=== PATIENT | female | born 1945 | race Caucasian/White ===

== ENCOUNTER 2020-03-10 09:59 | Outpatient (REF) | payer MEDICARE, SELFPAY ==
[2020-03-10 11:48] LABS: Alanine Aminotransferase 15 U/L (0-31); Anion Gap 11 (12-20); Aspartate Amino Transferase 16 U/L (5-31); Blood Urea Nitrogen 15 mg/dL (9-16); Calcium 9.5 mg/dL (8.4-10.2); Carbon Dioxide 32 mmol/L (22-29); Chloride 100 mmol/L (96-108); Cholesterol 170 mg/dL; Estimated Glomerular Filt Rate > 60; Glucose Fasting 124 mg/dL (60-99); HDL Cholesterol 41 mg/dL; LDL Cholesterol Calculated 100 mg/dl; Sodium 139 mmol/L (135-145); Triglycerides 149 mg/dL
[2020-03-10 11:52] LABS: Estimated Average Glucose 146 mg/dL; Hemoglobin A1c % 6.7 %
[2020-03-10 12:11] LABS: Vitamin D 25-OH Total 36.4 ng/mL (>30)
== END 2020-03-10 10:00 | disposition home or self-care (01) ==
LOC: HO.HMGCLDS 09:59
PROVIDERS: PCP Internal Medicine; Visit Provider Internal Medicine
DX: E78.5 Hyperlipidemia, unspecified (principal); I10 Essential (primary) hypertension; R73.01 Impaired fasting glucose; Z78.0 Asymptomatic menopausal state
CPT/HCPCS: 80048; 80061; 82306; 83036; 84450; 84460

== ENCOUNTER 2020-08-17 11:12 | Outpatient (REF) | payer MEDICARE, SELFPAY ==
[2020-08-17 14:41] LABS: Alanine Aminotransferase 9 U/L (0-31); Anion Gap 14 (12-20); Aspartate Amino Transferase 16 U/L (5-31); Blood Urea Nitrogen 16 mg/dL (9-16); Calcium 9.6 mg/dL (8.4-10.2); Carbon Dioxide 29 mmol/L (22-29); Chloride 102 mmol/L (96-108); Cholesterol 156 mg/dL; Estimated Glomerular Filt Rate > 60; Glucose Fasting 121 mg/dL (60-99); HDL Cholesterol 42 mg/dL; LDL Cholesterol Calculated 86 mg/dl; Potassium 4.5 mmol/L (3.3-5.1); Sodium 140 mmol/L (135-145); Triglycerides 141 mg/dL
[2020-08-17 14:43] LABS: Estimated Average Glucose 140 mg/dL; Hemoglobin A1c % 6.5 %
[2020-08-17 14:55] LABS: Creatinine Urine 47.24 mg/dL; Microalbum/Creatinine Ratio Ur 21.1 ug/mg cr
== END 2020-08-17 11:13 | disposition home or self-care (01) ==
LOC: HO.HMGCLDS 11:12
PROVIDERS: PCP Internal Medicine; Visit Provider Internal Medicine
DX: E11.9 Type 2 diabetes mellitus without complications (principal); E78.5 Hyperlipidemia, unspecified; I10 Essential (primary) hypertension; Z78.0 Asymptomatic menopausal state
CPT/HCPCS: 36415; 80048; 80061; 82043; 83036; 84450; 84460

== ENCOUNTER 2020-11-17 09:46 | Outpatient (REF) | payer MEDICARE, SELFPAY ==
--- NOTE | ~2020-11-17 | MM_ITS ---
EXAMINATION: MM SCREENING DIGITAL BREAST TOMOSYNTHESIS, BILATERAL CLINICAL INFORMATION: Screening. Asymptomatic. The lifetime risk of breast cancer based on the Tyrer-Cuzick Model is 7%. COMPARISON: Mammography: 11/10/2019, 11/04/2018, 10/10/2017 TECHNIQUE: Digital breast tomosynthesis is performed in both the craniocaudal and mediolateral oblique views along with computer-aided detection (CAD). Synthesized 2D images are generated from the tomosynthesis. Additional bilateral exaggerated CC views are provided. FINDINGS: There are scattered areas of fibroglandular density (ACR BI-RADS breast composition Category b). There are no significant masses, abnormal calcifications, or other abnormalities. Parenchymal pattern is similar to prior exams. No developing density. The axilla and skin contours are unremarkable. MM/MM tomosynthesis screening BI IMPRESSION: No mammographic evidence of malignancy. ASSESSMENT: BI-RADS 1: Negative RECOMMENDATION: Routine annual mammography screening. This patient's information was entered into a reminder system with a target due date for their next mammogram.
== END 2020-11-17 09:47 | disposition home or self-care (01) ==
LOC: HO.MAMMO 09:46
PROVIDERS: Visit Provider Internal Medicine
DX: Z12.31 Encounter for screening mammogram for malignant neoplasm of breast (principal)
CPT/HCPCS: 77063; 77067

== ENCOUNTER 2021-02-22 09:04 | Outpatient (REF) | payer MEDICARE, SELFPAY ==
[2021-02-22 12:23] LABS: Alanine Aminotransferase 17 U/L (0-31); Anion Gap 13 (12-20); Aspartate Amino Transferase 18 U/L (5-31); Blood Urea Nitrogen 15 mg/dL (9-16); Calcium 9.6 mg/dL (8.4-10.2); Carbon Dioxide 30 mmol/L (22-29); Chloride 99 mmol/L (96-108); Cholesterol 159 mg/dL; Estimated Glomerular Filt Rate > 60; Glucose Fasting 131 mg/dL (60-99); HDL Cholesterol 41 mg/dL; LDL Cholesterol Calculated 86 mg/dl; Potassium 4.1 mmol/L (3.3-5.1); Sodium 138 mmol/L (135-145); Triglycerides 160 mg/dL
[2021-02-22 12:43] LABS: Vitamin D 25-OH Total 42.2 ng/mL (>30)
[2021-02-22 12:57] LABS: Estimated Average Glucose 151 mg/dL; Hemoglobin A1c % 6.9 %
== END 2021-02-22 09:05 | disposition home or self-care (01) ==
LOC: HO.HMGCLDS 09:04
PROVIDERS: PCP Internal Medicine; Visit Provider Internal Medicine
DX: E11.9 Type 2 diabetes mellitus without complications (principal); E78.5 Hyperlipidemia, unspecified; I10 Essential (primary) hypertension; Z78.0 Asymptomatic menopausal state
CPT/HCPCS: 36415; 80048; 80061; 82306; 83036; 84450; 84460

== ENCOUNTER 2021-07-26 08:34 | Outpatient (REF) | payer MEDICARE, SELFPAY ==
[2021-07-26 11:43] LABS: Estimated Average Glucose 151 mg/dL; Hemoglobin A1c % 6.9 %
[2021-07-26 12:02] LABS: Alanine Aminotransferase 15 U/L (0-31); Albumin Level 4.2 g/dL (3.5-5.0); Alkaline Phosphatase 75 U/L (39-117); Anion Gap 12 (12-20); Aspartate Amino Transferase 18 U/L (5-31); Blood Urea Nitrogen 17 mg/dL (9-16); Calcium 9.8 mg/dL (8.4-10.2); Carbon Dioxide 30 mmol/L (22-29); Chloride 99 mmol/L (96-108); Cholesterol 153 mg/dL; Estimated Glomerular Filt Rate > 60; Glucose Fasting 151 mg/dL (60-99); HDL Cholesterol 37 mg/dL; LDL Cholesterol Calculated 88 mg/dl; Potassium 4.2 mmol/L (3.3-5.1); Sodium 137 mmol/L (135-145); Total Protein 7.3 g/dL (6.5-8.0); Triglycerides 140 mg/dL; Vitamin D 25-OH Total 36.8 ng/mL (>30)
[2021-07-26 12:25] LABS: Creatinine Urine 83.15 mg/dL
== END 2021-07-26 08:35 | disposition home or self-care (01) ==
LOC: HO.HMGCLDS 08:34
PROVIDERS: PCP Internal Medicine; Visit Provider Internal Medicine
DX: E11.9 Type 2 diabetes mellitus without complications (principal); E78.5 Hyperlipidemia, unspecified; I10 Essential (primary) hypertension; Z78.0 Asymptomatic menopausal state
CPT/HCPCS: 36415; 80053; 80061; 82043; 82306; 83036

== ENCOUNTER 2021-11-21 09:07 | Outpatient (REF) | payer MEDICARE, SELFPAY ==
--- NOTE | ~2021-11-21 | MM_ITS ---
EXAMINATION: MM SCREENING DIGITAL BREAST TOMOSYNTHESIS, BILATERAL CLINICAL INFORMATION: Screening. Asymptomatic. The lifetime risk of breast cancer based on the Tyrer-Cuzick Model is 7%. COMPARISON: Mammography: 11/17/2020, 11/10/2019, 11/04/2018 TECHNIQUE: Digital breast tomosynthesis is performed in both the craniocaudal and mediolateral oblique views along with computer-aided detection (CAD). Synthesized 2D images are generated from the tomosynthesis. Additional bilateral CC and additional bilateral MLO views are provided. FINDINGS: There are scattered areas of fibroglandular density (ACR BI-RADS breast composition Category b). There are no significant masses, abnormal calcifications, or other abnormalities. Parenchymal pattern is similar to prior studies. There is no developing density or architectural abnormality. The axilla are unremarkable. No significant changes. MM/MM tomosynthesis screening BI IMPRESSION: No mammographic evidence of malignancy. ASSESSMENT: BI-RADS 1: Negative RECOMMENDATION: Routine annual mammography screening. This patient's information was entered into a reminder system with a target due date for their next mammogram.
== END 2021-11-21 09:08 | disposition home or self-care (01) ==
LOC: HO.MAMMO 09:07
PROVIDERS: PCP Internal Medicine; Visit Provider Internal Medicine
DX: Z12.31 Encounter for screening mammogram for malignant neoplasm of breast (principal)
CPT/HCPCS: 77063; 77067

== ENCOUNTER 2022-01-20 08:53 | Outpatient (REF) | payer MEDICARE, SELFPAY ==
[2022-01-20 11:36] LABS: Estimated Average Glucose 157 mg/dL; Hemoglobin A1c % 7.1 %
[2022-01-20 11:54] LABS: Alanine Aminotransferase 10 U/L (0-31); Anion Gap 14 (12-20); Aspartate Amino Transferase 17 U/L (5-31); Blood Urea Nitrogen 18 mg/dL (9-16); Calcium 9.4 mg/dL (8.4-10.2); Carbon Dioxide 27 mmol/L (22-29); Chloride 102 mmol/L (96-108); Cholesterol 163 mg/dL; Estimated Glomerular Filt Rate > 60; Glucose Fasting 157 mg/dL (60-99); HDL Cholesterol 37 mg/dL; LDL Cholesterol Calculated 95 mg/dl; Sodium 139 mmol/L (135-145); Triglycerides 155 mg/dL
[2022-01-20 12:14] LABS: Creatinine Urine 81.28 mg/dL; Microalbum/Creatinine Ratio Ur 12.3 ug/mg cr
== END 2022-01-20 08:54 | disposition home or self-care (01) ==
LOC: HO.HMGCLDS 08:53
PROVIDERS: PCP Internal Medicine; Visit Provider Internal Medicine
DX: E11.9 Type 2 diabetes mellitus without complications (principal); E78.5 Hyperlipidemia, unspecified; I10 Essential (primary) hypertension; N95.9 Unspecified menopausal and perimenopausal disorder; Z78.0 Asymptomatic menopausal state
CPT/HCPCS: 36415; 80048; 80061; 82043; 82306; 83036; 84450; 84460

== ENCOUNTER 2022-06-21 09:17 | Outpatient (REF) | payer MEDICARE, SELFPAY ==
[2022-06-21 12:04] LABS: Alanine Aminotransferase 17 U/L (0-31); Anion Gap 13 (12-20); Aspartate Amino Transferase 20 U/L (5-31); Blood Urea Nitrogen 12 mg/dL (9-16); Calcium 9.6 mg/dL (8.4-10.2); Carbon Dioxide 30 mmol/L (22-29); Chloride 97 mmol/L (96-108); Cholesterol 173 mg/dL; Estimated Glomerular Filt Rate > 60; Glucose Fasting 133 mg/dL (60-99); HDL Cholesterol 41 mg/dL; LDL Cholesterol Calculated 103 mg/dl; Sodium 136 mmol/L (135-145); Triglycerides 145 mg/dL; Vitamin D 25-OH Total 33.2 ng/mL (>30)
[2022-06-21 12:06] LABS: Estimated Average Glucose 174 mg/dL; Hemoglobin A1c % 7.7 %
[2022-06-21 12:17] LABS: Creatinine Urine 79.07 mg/dL; Microalbum/Creatinine Ratio Ur 26.5 ug/mg cr
== END 2022-06-21 09:18 | disposition home or self-care (01) ==
LOC: HO.HMGCLDS 09:17
PROVIDERS: PCP Internal Medicine; Visit Provider Internal Medicine
DX: E11.65 Type 2 diabetes mellitus with hyperglycemia (principal); E78.5 Hyperlipidemia, unspecified; I10 Essential (primary) hypertension; Z78.0 Asymptomatic menopausal state
CPT/HCPCS: 36415; 80048; 80061; 82043; 82306; 83036; 84450; 84460

== ENCOUNTER 2022-11-28 09:44 | Outpatient (REF) | payer MEDICARE, SELFPAY ==
--- NOTE | ~2022-11-28 | MM_ITS ---
EXAMINATION: MM SCREENING DIGITAL BREAST TOMOSYNTHESIS, BILATERAL CLINICAL INFORMATION: Screening. Asymptomatic. COMPARISON: Mammography: This study is compared with prior exams dating back to 2017. TECHNIQUE: Digital breast tomosynthesis is performed in both the craniocaudal and mediolateral oblique views along with computer-aided detection (CAD). Synthesized 2D images are generated from the tomosynthesis. FINDINGS: There are scattered areas of fibroglandular density (ACR BI-RADS breast composition Category b). There are 3 focal asymmetries which lie within 1.5 cm of each other in the upper inner quadrant of the left breast. Additional mammographic imaging of this region is advised. In the right breast, there are no significant masses, abnormal calcifications, or other abnormalities. MM/MM tomosynthesis screening BI IMPRESSION: Focal asymmetries of the left breast warrant additional mammographic imaging. Targeted sonographic imaging may be performed at the discretion of the diagnostic radiologist. No mammographic signs of malignancy right breast. ASSESSMENT: BI-RADS BI-RADS 0 - Incomplete: Needs additional Imaging. RECOMMENDATION: 1. Additional views of the left breast 2. Targeted ultrasound if warranted after review of the additional views. 3. Radiology department staff will contact the patient for additional imaging. Additional Imaging required This examination should not preclude the clinical evaluation of a suspicious palpable abnormality. This patient's information was entered into a reminder system with a target due date for their next mammogram.
== END 2022-11-28 09:45 | disposition home or self-care (01) ==
LOC: HO.MAMMO 09:44
PROVIDERS: PCP Internal Medicine; Visit Provider Internal Medicine
DX: Z12.31 Encounter for screening mammogram for malignant neoplasm of breast (principal)
CPT/HCPCS: 77063; 77067

== ENCOUNTER → 2022-11-28 10:00 | Outpatient (BNV) | payer MEDICARE, SELFPAY | PROVIDERS: PCP Internal Medicine; Visit Provider Radiology Diagnostic Radiology | DX: Z12.31 Encounter for screening mammogram for malignant neoplasm of breast (principal) | CPT/HCPCS: 77063; 77067 ==

== ENCOUNTER 2022-12-12 13:42 | Outpatient (REF) | payer MEDICARE, SELFPAY ==
--- NOTE | ~2022-12-12 | MM_ITS ---
EXAMINATION: MM DIAGNOSTIC DIGITAL BREAST TOMOSYNTHESIS, LEFT US BREAST LIMITED, LEFT MAMMOGRAPHY: CLINICAL INFORMATION: Follow-up 3 focal asymmetries left breast upper quadrant approximately 12:00 axis seen on screening exam. COMPARISON: Mammography: 11/28/2022, 11/21/2021, and 11/17/2020, and dating back to 2014. TECHNIQUE: Digital left breast tomosynthesis is performed including a full field 3-D digital left ML view, and 3-D spot compression left MLO and CC views along with computer-aided detection (CAD). Synthesized 2D images are generated from the tomosynthesis. FINDINGS: There are scattered areas of fibroglandular density (ACR BI-RADS breast composition Category b). There are 3 slightly irregular nodules in the 12:00 axis of the left breast, posterior one third, which persist upon diagnostic views. These are grouped within approximately 1.5 cm of each other. These will be evaluated by ultrasound. ULTRASOUND: CLINICAL INFORMATION: Evaluate focal asymmetries left breast 12:00 axis. COMPARISON: None relevant. TECHNIQUE: Targeted sonographic evaluation left breast 12:00 axis was performed using a high frequency linear transducer. Selected archived documentation. FINDINGS: LEFT BREAST: At the 12:00 axis, 13 cm from the nipple, there is a slightly irregular hypoechoic mass which has a pear-shape, with no posterior features, and slightly hyperechoic surrounding rim of fat. This measures 5 x 8 x 4 mm. No internal color Doppler flow is seen. This may represent a focus of fat necrosis but remain suspicious. Ultrasound-guided biopsy recommended. Immediately adjacent in the left breast at the 12:00 axis, 13 cm from the nipple, there is a 3 mm oval nodule with similar imaging characteristics, and a directly abutting 2 mm nodule, neither demonstrating posterior features, internal blood flow, and both demonstrating a slightly hyperechoic rim of fat. These may represent foci of fat necrosis as well, although biopsy is recommended to confirm. Findings and recommendations were discussed with the patient in detail. MM/MM tomosynthesis added views L IMPRESSION: 3 suspicious loosely grouped nodules in the 12:00 axis of the left breast, 13 cm from the nipple, posterior one third, measuring up to 8 mm, for which ultrasound-guided biopsy is recommended for the 2 largest. These may represent fat necrosis although biopsy is recommended to confirm. OVERALL ASSESSMENT: Mammography: BI-RADS 4 - Suspicious finding Ultrasound: BI-RADS 4 - Suspicious finding RECOMMENDATION: Biopsy recommended
== END 2022-12-12 13:43 | disposition home or self-care (01) ==
LOC: HO.MAMMO 13:42
PROVIDERS: PCP Internal Medicine; Visit Provider Internal Medicine
DX: N64.89 Other specified disorders of breast (principal)
CPT/HCPCS: 76642; 77061; 77065

== ENCOUNTER → 2022-12-12 14:00 | Outpatient (BNV) | payer MEDICARE, SELFPAY | PROVIDERS: PCP Internal Medicine; Visit Provider Radiology Diagnostic Radiology | DX: N63.23 Unspecified lump in the left breast, lower outer quadrant (principal) | CPT/HCPCS: 76642; 77061; 77065; G0279 ==

== ENCOUNTER 2022-12-20 08:08 | Outpatient (AMB) | payer MEDICARE, SELFPAY ==
[2022-12-20 08:11] VITALS: BMI 38.3
--- NOTE | 2022-12-20 08:11 | A.OFFVIS_ITS ---
Intake Vital Signs 12/20/22 08:11 Height 5 ft 4 in Weight 223 lb BMI 38.3 Intake Visit Reasons: US guided left breast biopsy *2 areas* Intake Note: This patient presents for Ultrasound guided biopsy consultation for left breast *2 areas*. Patient c/o; reports no breast complaints at this time. 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 She had recently under gone a screening mammogram showing left breast nodule. She underwent targeted mammogram and ultrasound showing a slightly irregular hypoechoic mass measuring 5 x 8 x 4 mm at the 12:00 o'clock position on the left breast. Adjacent to the left breast is a 3 mm oval nodule with similar imaging characteristics. Ultrasound-guided biopsy of both areas were recommended by the radiologist She otherwise denies any palpable breast masses or any nipple or skin changes. Her menarche was at the age of 12. Her 1st was at age of 24 . She had 2 pregnancies. She had menopause in her 50's. She says her mother had breast cancer in her 80s [facility] Medical History Breast nodule Diabetes mellitus with hyperglycemia, without long-term current use of insulin Dyslipidemia Essential hypertension Menopause Type 2 diabetes mellitus without complication, without long-term current use of insulin Surgical History History of colonoscopy History of tonsillectomy Family History Mother Cancer Brother No problems noted. Son No problems noted. Daughter No problems noted. Other Mental health disorder Social History Housing: Condominium Alcohol intake: never Patient Tobacco Use Status: Never used Tobacco e-Cigarette/Vaping Use: Never Used Second Hand Smoke Exposure: No (as a child ) Current occupational status: retired Cognitive needs: No Hearing needs: No Vision needs: Yes Female Reproductive History Menstrual Age of Menarche: 12 Total pregnancies: 2 Review of Systems Const Denies chills and Denies fever(s) Card Denies chest pain, Denies dyspnea and Denies dyspnea on exertion Resp Denies cough, Denies dyspnea and Denies dyspnea on exertion GI Denies hematochezia and Denies change in bowel habits Denies hematuria Musc Denies back pain and Denies limited range of motion Neuro Denies focal weakness and Denies convulsions Psych Denies depression and Denies mood swings Physical Exam Const General: comfortable and no acute distress Orientation/consciousness: patient oriented x3 Neck Neck: Yes no lymphadenopathy Chest Other: No palpable breast masses, no nipple or skin changes, no axillary lymphadenopathy; she has large, pendulous breasts Resp Auscultation: clear to auscultation bilaterally Cardio Rhythm: regular rhythm GI Palpation (GI): Soft to palpation, nontender and no guarding Neuro General: patient oriented x3 Assessment & Plan Assessment & Plan (1) Breast nodule: Code(s): N63.0 - Unspecified lump in unspecified breast Plan: She has 2 breast nodules adjacent to each other as described above. The radiologist had recommended ultrasound-guided biopsy. She understands the technique of this procedure. I will see her in the office to discuss the path report and plan the next step in her care. She says she understands the plan and is comfortable with this. Orders: Orders US breast ndl core biopsy LT 12/19/22 N63.0 - Unspecified lump in unspecified breast Coding Level of Care Code New Pt Level 3 (64617) Diagnoses Breast nodule N63.0
== END 2022-12-20 08:39 | disposition home or self-care (01) ==
PROVIDERS: PCP Internal Medicine; Visit Provider Surgery
DX: N63.0 Unspecified lump in unspecified breast (principal)
CPT/HCPCS: 99203

== ENCOUNTER 2022-12-20 08:45 | Outpatient (REF) | payer MEDICARE, SELFPAY ==
--- NOTE | ~2022-12-20 | MM_ITS ---
PROCEDURE: US GUIDED BREAST BIOPSY, LEFT CLINICAL INFORMATION: Left breast masses at the 12:00 axis x2, dual site biopsy. COMPARISON: 12/12/2022, 11/28/2022. PROCEDURAL DETAILS: The details of the procedure, as well as the risks, benefits, and alternatives to the procedure were explained to the patient in detail and all of her questions were answered, after which written informed consent was obtained. Site and side were confirmed. Prior to the procedure, sonography revealed a 5 x 8 x 4 mm slightly irregular hypoechoic nodule left breast 12:00 axis, 13 cm from the nipple. This will be referred to as site A. In addition, a 3 mm immediately adjacent hypoechoic mass in the left breast at the 12:00 axis, 13 cm from the nipple was localized for biopsy. This will be referred to as site B. A time-out was performed, the lesions intended for biopsy were targeted, the overlying skin marked, and prepped and draped in sterile fashion. Using sonographic guidance, sterile technique, and 1% lidocaine without epinephrine for local anesthesia, multiple automated core biopsies were obtained through the targeted area of the larger mass at site A with a 14G spring loaded Achieve core biopsy device. There was real-time confirmation of appropriate needle passage. Sampling was documented. At the completion of tissue sampling, a single butterfly-shaped metallic clip was deposited at the biopsy site. Subsequently, using sonographic guidance, sterile technique, and 1% lidocaine without epinephrine for local anesthesia, multiple automated core biopsies were obtained through the targeted area of the smaller 3 mm mass at site B with a 14G spring loaded Achieve core biopsy device. There was real-time confirmation of appropriate needle passage. Sampling was documented. At the completion of tissue sampling, a single open coil-shaped metallic clip was deposited at the biopsy site. There was no evidence of immediate complication. SPECIMEN: Appropriate samples were obtained from both sites. DIGITAL POST-PROCEDURE MAMMOGRAPHY: Breast density: The tissue contains scattered areas of fibroglandular density. BI-RADS version 5, category B. The postprocedure 2-view direct digital mammogram reveals satisfactory and accurate positioning of the both biopsy clips. No evidence of hematoma. The patient tolerated the procedure well and, after assuring adequate hemostasis, was discharged in good condition after reviewing postbiopsy breast care instructions. Final pathology results are pending. MM/MM diagnostic mammo unilat LT IMPRESSION: 1. No immediate complication from ultrasound-guided percutaneous biopsy 2 sites superior left breast. 2. Ultrasound was used to localize and guide marker clip placement x 2. 3. The 2-view direct digital postprocedure mammogram reveals accurate positioning of both biopsy clips. 4. Final pathology results are pending. A separate report with final recommendations will be issued once these results are made available.
[2022-12-20] MEDS: Sodium Bicarbonate 8.4% 50 MEQ/50 ML VIAL SUBCUT (11:07)
[2022-12-20] MEDS: Lidocaine HCl 1 % 20 ML VIAL 9 ML SUBCUT (11:08)
== END 2022-12-20 08:46 | disposition home or self-care (01) ==
LOC: HO.MAMMO 08:45
PROVIDERS: PCP Internal Medicine; Visit Provider Surgery
DX: N63.25 Unspecified lump in the left breast, overlapping quadrants (principal)
CPT/HCPCS: 19083; 77062; 77065; 88305; 88341; 88342; 88360; A4648

== ENCOUNTER → 2022-12-20 10:00 | Outpatient (BNV) | payer MEDICARE, SELFPAY | PROVIDERS: PCP Internal Medicine; Visit Provider Radiology Diagnostic Radiology | DX: N63.22 Unspecified lump in the left breast, upper inner quadrant (principal) | CPT/HCPCS: 19083; 19084; 77065 ==

== ENCOUNTER 2022-12-25 10:55 | Outpatient (REF) | payer MEDICARE, SELFPAY ==
[2022-12-25 13:44] LABS: Alanine Aminotransferase 15 U/L (0-31); Anion Gap 11 (12-20); Aspartate Amino Transferase 20 U/L (5-31); Blood Urea Nitrogen 13 mg/dL (9-16); Calcium 9.8 mg/dL (8.4-10.2); Carbon Dioxide 31 mmol/L (22-29); Chloride 99 mmol/L (96-108); Cholesterol 154 mg/dL (<200); Estimated Glomerular Filt Rate > 60; Glucose Fasting 141 mg/dL (60-99); HDL Cholesterol 43 mg/dL (>40); LDL Cholesterol Calculated 83 mg/dL (<100); Potassium 4.2 mmol/L (3.3-5.1); Sodium 137 mmol/L (135-145); Triglycerides 144 mg/dL (<150)
[2022-12-25 13:46] LABS: Estimated Average Glucose 146 mg/dL; Hemoglobin A1c % 6.7 % (<6.0)
== END 2022-12-25 10:56 | disposition home or self-care (01) ==
LOC: HO.HMGCLDS 10:55
PROVIDERS: PCP Internal Medicine; Visit Provider Internal Medicine
DX: E11.65 Type 2 diabetes mellitus with hyperglycemia (principal); E78.5 Hyperlipidemia, unspecified; I10 Essential (primary) hypertension; Z78.0 Asymptomatic menopausal state
CPT/HCPCS: 36415; 80048; 80061; 82306; 83036; 84450; 84460

== ENCOUNTER 2022-12-26 09:24 | Outpatient (AMB) | payer MEDICARE, SELFPAY ==
--- NOTE | 2022-12-26 09:40 | A.OFFPC_ITS ---
Vital Signs 12/26/22 10:08 Height 5 ft 4 in Weight 221 lb BMI 37.9 BP 138/64 Blood Pressure Location Lt brachial Position Sitting Pulse 64 Pulse Source Pulse Oximeter Pulse Oximetry (%) 97 Oxygen Delivery Method Room Air Intake Visit Reasons: 5m follow up, dm, lipids, htn after fasting labs Intake Note: Pt is here today for her 5 mo. f/u DM,lipids and HTN Allergies lisinopril [LISINOPRIL] Adverse Reaction (Unknown, Verified 12/26/22 10:25) TACHYCARDIA, fast heart rate, tachycardia moxifloxacin [From VIGAMOX] Adverse Reaction (Unknown, Verified 12/26/22 10:25) INCREASED IRRITATION, adverse reaction BANDAIDS Allergy (Unknown, Uncoded 12/26/22 10:25) RASH Medication List - Last Reconciled 12/26/22 by Dorene Martinez MD aspirin (Adult Low Dose Aspirin) 81 mg PO DAILY atenolol 50 mg PO BID calcium carbonate 390 mg PO DAILY cholecalciferol (vitamin D3) 25 mcg PO DAILY omega-3 fatty acids (Fish Oil Concentrate) 1,000 mg PO BID simvastatin 40 mg PO BEDTIME valsartan-hydrochlorothiazide 160-25 mg 1 tab PO DAILY Tobacco use date assessed: 12/26/22 Fall risk assessment: No Falls in past year Last assessed Fall Risk: 12/26/22 Dental Screening Dental Screen Date: 12/26/22 Did you have a dental visit in the last 12 months?: Yes Did you have a dental problem in the last 6 months where you did not have access to dental care?: Yes Was dental information given to patient?: Patient has dentist HPI 5m follow up, dm, lipids, htn after fasting labs HPI Details 77-year-old lady here today for follow-u p on her diabetes mellitus, hypertension and dyslipidemia. She has been compliant with taking her medications, has been following recommended diet, and tries to stay active, walks a lot for exercise. Recent fasting labs done showed good control of her blood sugar with a hemoglobin A1c at 6.7%, better than last check, and fasting lipids are within normal limits as well as vitamin-D level. She had a recent mammogram done which showed abnormal findings and underwent breast biopsy yesterday which showed presence of invasive ductal carcinoma in the left breast stage I. [facility] Medical History (Updated 12/26/22 @ 10:45 by Dorene Martinez MD) Invasive ductal carcinoma of left breast, stage 1 Type 2 diabetes mellitus without complication, without long-term current use of insulin Menopause Dyslipidemia Essential hypertension Surgical History History of colonoscopy History of tonsillectomy Family History (Updated 12/27/22 @ 01:00 by Dorene Martinez MD) Mother Breast cancer Brother No problems noted. Son No problems noted. Daughter No problems noted. Other Mental health disorder Social History Housing: Condominium Alcohol intake: never Patient Tobacco Use Status: Never used Tobacco e-Cigarette/Vaping Use: Never Used Second Hand Smoke Exposure: No (as a child ) Current occupational status: retired Cognitive needs: No Hearing needs: No Vision needs: Yes Female Reproductive History Menstrual Age of Menarche: 12 Questionnaire PHQ-9 Over the last 2 weeks, how often have you been bothered by any of the following problems? 1. Little interest or pleasure in doing things: not at all 2. Feeling down, depressed, or hopeless: not at all 3. Trouble falling or staying asleep, or sleeping too much: not at all 4. Feeling tired or having little energy: not at all 5. Poor appetite or overeating: not at all 6. Feeling bad about yourself - or that you are a failure or have let yourself or your family down: not at all 7. Trouble concentrating on things, such as reading the newspaper or watching television: not at all 8. Moving or speaking so slowly that other people could have noticed. Or the opposite - being so fidgety or restless that you have been moving around a lot more than usual: not at all 9. Thoughts that you would be better off or of hurting yourself in some way: not at all Total score: 0 Depression Screening Interpretation: Negative [id number] - PHQ-9 Billing: Yes Source: Developed by Drs. Mahendra Astudillo, Leti Perez, Ernie Oliver and colleagues, with an educational penny from [employer]. Thrive Questionnaire Date Thrive assessed: 06/22/22 AUDIT C Alcohol Use Questionnaire (AUDIT-C) 1. How often do you have a drink containing alcohol?: Never Total Score: 0 DRISS-7 AMB Questionnaire DRISS-7 Date DRISS - 7 assessed: 06/22/22 Source: Developed by Drs. Mahendra Astudillo, Leti Perez, Ernie Oliver and colleagues, with an educational penny from [employer]. Review of Systems Const Denies chills and Denies fever(s) Eyes Reports no additional complaints ENT Reports no additional complaints Card Denies chest pain, Denies dyspnea and Denies dyspnea on exertion Resp Denies cough, Denies dyspnea and Denies dyspnea on exertion GI Denies hematochezia and Denies change in bowel habits Denies hematuria Musc Denies back pain and Denies limited range of motion Skin/Breast Denies breast swelling, Denies breast skin changes, Denies breast pain and Denies breast mass Neuro Denies focal weakness and Denies convulsions Psych Denies depression and Denies mood swings Endo Reports no additional complaints Vitaliy/Lymph Reports no additional complaints Aller/Immun Reports no additional complaints Physical exam (Primary Care) Vital Signs: Last Vital Signs Pulse 64 12/26/22 10:08 BP 138/64 12/26/22 10:08 Pulse Ox 97 12/26/22 10:08 Oxygen Delivery Method Room Air 12/26/22 10:08 BMI result Body Mass Index 37.9 Tobacco/Smoking Status: Tobacco use Status Tobacco use date assessed 12/26/22 12/26/22 10:14 Patient Tobacco Use Status Never used Tobacco 12/26/22 09:41 e-Cigarette/Vaping Use Never Used 12/26/22 09:41 Depression Screening Interpretation: Negative Thrive Assessment: Date of Thrive Assessment Date Thrive assessed 06/22/22 12/26/22 09:41 Const General: cooperative, comfortable and no acute distress Orientation/consciousness: patient oriented x3 HENMT Ears: hearing grossly normal bilaterally, external ears normal, TM's normal bilaterally and EAC's normal General nose exam: Normal external nose present, Normal nasal mucous membranes and turbinates present and No nasal discharge present Mouth: Normal oral and palatal mucosa present, oropharynx normal and moist mucous membranes Throat: Yes posterior oropharynx normal Eyes General: appearance normal, both eyes and all related structures Conjunctivae: conjunctivae normal Pupils: Equal, round and reactive pupils present EOM: EOMs intact bilaterally Neck Neck: Yes full ROM, Yes no lymphadenopathy and Yes supple Chest Breast/axilla palpation: normal palpation of the breasts Resp Effort & Inspection: normal respiratory effort and able to speak in complete sentences Auscultation: clear to auscultation bilaterally Cardio Rate: regular rate Rhythm: regular rhythm Heart sounds: S1 normal heart sound present and S2 normal heart sound present GI Inspection: Yes normal to inspection Palpation (GI): Soft to palpation, nontender and no masses Auscultation: normal bowel sounds Back/Spine/Pelvis Cervical Spine: cervical ROM normal Thoracic/Lumbar Spine: thoracic and lumbar spine normal to inspection Skin General skin exam: no rashes or lesions noted Neuro General: patient oriented x3, gait normal, tone normal, moves all extremities, Normal light touch and pain sensation and no focal motor deficits Cranial nerves: Yes Equal, round and reactive pupils present Cognition (Neuro): normal cognition Gait exam (Neuro): Normal gait present Motor exam (neuro): 5/5 motor strength present throughout Extrem General: Yes full ROM, Yes no joint enlargement, Yes no pedal edema and Yes normal gait Psych Appearance: grossly normal Mental Status: mental status grossly normal Speech and movement: Normal speech and movement present Affect: normal affect Attitude: cooperative Thought process: Normal thought process present Results Reviewed Results Reviewed: ENTERED: 12/25/22-1059 NADJA SU: ORDERED: Met Prof Fast, AST, ALT, Lipid Panel, Vitamin D 25-OH Test Result Flag Reference Site Sodium 137 135-145 mmol/L Potassium 4.2 3.3-5.1 mmol/L CL 99 96-108 mmol/L CO2 31 H 22-29 mmol/L Gap 11 L 12-20 BUN 13 9-16 mg/dL Creat 0.77 0.5-1.4 mg/dL EGFR > 60 NOTE: For -Prydeinig individuals, multiply the result by 1.210. Chronic Kidney Disease: Estimated GFR < 60 mL/min/1.73m2 Severe Kidney Disease: Estimated GFR < 15 mL/min/1.73m2 FBS 141 H 60-99 mg/dL A fasting glucose of 126 mg/dl or greater on more than one occasion is considered diagnostic of diabetes. CA 9.8 8.4-10.2 mg/dL AST (GOT) 20 5-31 U/L ALT (GPT) 15 0-31 U/L Triglyceride 144 <150 mg/dL Desirable Triglyceride: less than 150 mg/dL Borderline High Triglyceride 150-199 mg/dL High Triglyceride: 200-499 mg/dL Very High Triglyceride: greater than or equal to 5OO mg/dL Cholesterol 154 <200 mg/dL Desirable Cholesterol: less than 200 mg/dL Borderline High Cholesterol: 200-239 mg/dL High Cholesterol: greater than 239 mg/dL LDL Calculated 83 <100 mg/dL Desirable LDL: less than 100 mg/dL Near Optimal/Above Optimal LDL: 110-129 mg/dL Borderline High LDL: 130-159 mg/dL High LDL: 160-189 mg/dL Very High LDL: greater than or equal to 190 mg/dL HDL 43 >40 mg/dL Desirable HDL: greater than 40 mg/dL Note: This HDL assay may give artificially low results in patients with liver disease. Vit D 25-OH Tot 43.0 >30 ng/mL Health Based Reference Values* < 20 ng/mL Deficient 20-30 ng/mL Insufficient > 30 ng/mL Sufficient *Karina BECKER. N Engl J Med. 2007;[id number] ENTERED: 12/25/22-105 [facility] [address]: ORDERED: Hgb A1c Test Result Flag Reference Site A1c % 6.7 H <6.0 % Hemoglobin A1C Reference Range Adults: 4.8 - 6.0 % Non diabetic: < 6.0 % Goal: < 7.0 % Additional Action Suggested: > 8.0 % Note: Hemoglobin A1c results are invalid for patients with abnormal amounts of HbF. Blood transfusions may impact the HbA1c concentration in the patient sample. Est. Avg. Gluc 146 mg/dL eAG = Estimated average glucose which is %A1C expressed as average glucose, using the formula of the [id number]-[id number] Average Glucose study (ADAG), Diabetes Care, Vol.31,#8, 2007 Assessment and Plan Assessment & Plan (1) Invasive ductal carcinoma of left breast, stage 1: Code(s): C50.912 - Malignant neoplasm of unspecified site of left female breast Plan: Referred to Oncology for further evaluation management, patient also has an appointment for follow-up with her breast surgeon in the morning (2) Type 2 diabetes mellitus without complication, without long-term current use of insulin: Code(s): E11.9 - Type 2 diabetes mellitus without complications Plan: Recent lab results reviewed with patient, with sugar and hemoglobin A1c stable and at goal . Reinforced diabetic diet and regular exercise with patient. Counseled regarding importance of yearly diabetes retinopathy screening. Patient advised to inspect feet daily, for any signs of injury, callus or infection. Compliance with diet and regular exercise again stressed. Blood pressure goal is less than 130/80, goal LDL is less than 100 and goal hemoglobin A1c is less than 7% follow-up appointment made in-3--months, after fasting labs done. (3) Dyslipidemia: Code(s): E78.5 - Hyperlipidemia, unspecified Plan: Reviewed recent fasting lipid profile with patient with levels within normal limits . Continue with simvastatin 40 mg daily and [place] 3 fatty acid supplements, , in addition to adherence to low-cholesterol diet and regular exercise, at least 30 minutes 3 to 4 times a week. Advised patient to make healthy food choices, eat more fruits, vegetables, whole grains, wild caught fish and low-fat dairy. Limit amount of meat and fried or fatty food products, as well as processed foods and fast foods. Follow-up scheduled with repeat fasting lipid panel in 3 months. (4) Essential hypertension: Code(s): I10 - Essential (primary) hypertension Plan: Continued on atenolol 50 mg twice a day and valsartan hydrochlorothiazide 160-25 mg taken once a day Orders: Orders Hemoglobin A1c 03/16/23 E11.9 - Type 2 diabetes mellitus without complications, E78.5 - Hyperlipidemia, unspecified, I10 - Essential (primary) hypertension, Z78.0 - Asymptomatic menopausal state Alanine Aminotransferase 03/16/23 E11.9 - Type 2 diabetes mellitus without complications, E78.5 - Hyperlipidemia, unspecified, I10 - Essential (primary) hypertension, Z78.0 - Asymptomatic menopausal state Lipid Panel 03/16/23 E11.9 - Type 2 diabetes mellitus without complications, E78.5 - Hyperlipidemia, unspecified, I10 - Essential (primary) hypertension, Z78.0 - Asymptomatic menopausal state Vitamin D 25-OH Total 03/16/23 E11.9 - Type 2 diabetes mellitus without complications, E78.5 - Hyperlipidemia, unspecified, I10 - Essential (primary) hy pertension, Z78.0 - Asymptomatic menopausal state Aspartate Amino Transferase 03/16/23 E11.9 - Type 2 diabetes mellitus without complications, E78.5 - Hyperlipidemia, unspecified, I10 - Essential (primary) hypertension, Z78.0 - Asymptomatic menopausal state Basic Metabolic Panel Fasting 03/16/23 E11.9 - Type 2 diabetes mellitus without complications, E78.5 - Hyperlipidemia, unspecified, I10 - Essential (primary) hypertension, Z78.0 - Asymptomatic menopausal state Referrals Hematology & Oncology Referral C50.912 - Malignant neoplasm of unspecified site of left female breast Coding Level of Care Code Est Pt Level 4 (70016) Diagnoses Invasive ductal carcinoma of left breast, stage 1 C50.912 Type 2 diabetes mellitus without complication, without long-term current use of insulin E11.9 Dyslipidemia E78.5 Essential hypertension I10
[2022-12-26 10:08] VITALS: BP 138/64; PULSE 64; O2SAT 97; BMI 37.9
== END 2022-12-26 10:58 | disposition home or self-care (01) ==
PROVIDERS: PCP Internal Medicine; Visit Provider Internal Medicine
DX: C50.912 Malignant neoplasm of unspecified site of left female breast (principal); E11.9 Type 2 diabetes mellitus without complications; E78.5 Hyperlipidemia, unspecified; I10 Essential (primary) hypertension
CPT/HCPCS: 99214

== ENCOUNTER 2022-12-27 14:23 | Outpatient (AMB) | payer MEDICARE, SELFPAY ==
--- NOTE | 2022-12-27 14:24 | MHC.OFFVIS ---
Intake Vital Signs 12/27/22 14:30 Height 5 ft 4 in Weight 221 lb 0.003 oz BMI 37.9 BP 183/87 H Blood Pressure Location Rt brachial Position Sitting Pulse 76 Intake Visit Reasons: Left breast nodules, biopsy results Intake Note: This patient presents for a follow-up assessment for breast biopsy results for left breast nodules. Patient c/o; reports no changes. 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: No Accompanied by: Self / Same As Patient Allergies lisinopril [LISINOPRIL] Adverse Reaction (Unknown, Verified 12/27/22 14:31) TACHYCARDIA, fast heart rate, tachycardia moxifloxacin [From VIGAMOX] Adverse Reaction (Unknown, Verified 12/27/22 14:31) INCREASED IRRITATION, adverse reaction BANDAIDS Allergy (Unknown, Uncoded 12/27/22 14:31) RASH Medication List - Last Reconciled 12/28/22 by Abner Lee MD aspirin (Adult Low Dose Aspirin) 81 mg PO DAILY atenolol 50 mg PO BID calcium carbonate 390 mg PO DAILY cholecalciferol (vitamin D3) 25 mcg PO DAILY omega-3 fatty acids (Fish Oil Concentrate) 1,000 mg PO BID simvastatin 40 mg PO BEDTIME valsartan-hydrochlorothiazide 160-25 mg 1 tab PO DAILY HPI Left breast nodules, biopsy results HPI Details [age] female here for follow-up after ultrasound-guided biopsy 2 lesions on the left breast. She had recently undergone a screening mammogram showing a left breast nodule. She underwent targeted mammogram and ultrasound showing a slightly irregular hypoechoic mass measuring 5 x 8 x 4 mm at the 12:00 o'clock position on the left breast. Adjacent to the left breast is a 3 mm oval nodule with similar imaging characteristics. Ultrasound-guided biopsy of both areas were recommended by the radiologist which she underwent last week. She is here to discuss the report. She tolerated procedure well. She describes a little bit of bruising on the biopsy sites. She otherwise denies any palpable breast masses or any nipple or skin changes. Her menarche was at the age of 12. Her 1st was at age of 24 . She had 2 pregnancies. She had menopause in her 50's. [facility] Medical History Invasive ductal carcinoma of breast Invasive ductal carcinoma of left breast, stage 1 Type 2 diabetes mellitus without complication, without long-term current use of insulin Menopause Dyslipidemia Essential hypertension Surgical History History of colonoscopy History of tonsillectomy Family History Mother Breast cancer Brother No problems noted. Son No problems noted. Daughter No problems noted. Other Mental health disorder Social History Housing: Condominium Alcohol intake: never Patient Tobacco Use Status: Never used Tobacco e-Cigarette/Vaping Use: Never Used Second Hand Smoke Exposure: No (as a child ) Current occupational status: retired Cognitive needs: No Hearing needs: No Vision needs: Yes Female Reproductive History Menstrual Age of Menarche: 12 Review of Systems Const Denies chills and Denies fever(s) Card Denies chest pain, Denies dyspnea and Denies dyspnea on exertion Resp Denies cough, Denies dyspnea and Denies dyspnea on exertion GI Denies hematochezia and Denies change in bowel habits Denies hematuria Musc Denies back pain and Denies limited range of motion Neuro Denies focal weakness and Denies convulsions Psych Denies depression and Denies mood swings Physical Exam Vital Signs: Last Vital Signs Pulse 76 12/27/22 14:30 BP 183/87 H 12/27/22 14:30 BMI result Body Mass Index 37.9 Const General: comfortable and no acute distress Orientation/consciousness: patient oriented x3 Neck Neck: Yes no lymphadenopathy Chest Other: Mild ecchymosis on the biopsy site on the left breast, upper part Resp Auscultation: clear to auscultation bilaterally Cardio Rhythm: regular rhythm GI Palpation (GI): Soft to palpation, nontender and no guarding Neuro General: patient oriented x3 Assessment & Plan Assessment & Plan (1) Invasive ductal carcinoma of breast: Code(s): C50.919 - Malignant neoplasm of unspecified site of unspecified female breast Plan: Unfortunately, her path report shows an invasive ductal cancer, ER WA positive, HER2 negative. She actually has 2 lesions in both of these are invasive ductal cancer by pathology. These are both at the 12 o'clock position. I told her that if she is choosing to undergo breast conservation therapy which is lumpectomy, I would have to order an MRI of the breast to define these 2 lesions as there a possibility of these 2 lesions being confluent that we may miss some margins in between. She also understands that she would need radiation to the left breast if she underwent lumpectomy. However, she says that she already had decided that she would go for will mastectomy. I explained to her the technique of this procedure. I also explained to her that we will need to do sentinel node biopsy as this will allow us full staging of her disease. I had a long discussion with her about the risks including but not limited to bleeding, infections, flap necrosis, inherent risks of anesthesia. I also explained to her what to expect postoperatively including the need for drains. She understands the option of lumpectomy for breast conservation therapy and she does not want this. She also understands the option of breast reconstruction and she stated that she was not interested at this for now. She is to see Dr. Hermosillo of Oncology next week. In the meantime, we will schedule her for mastectomy and sentinel biopsy of the left breast. Coding Level of Care Code Est Pt Level 4 (91222) Diagnoses Invasive ductal carcinoma of breast C50.919
[2022-12-27 14:30] VITALS: BP 183/87; PULSE 76; BMI 37.9
== END 2022-12-27 14:52 | disposition home or self-care (01) ==
PROVIDERS: PCP Internal Medicine; Visit Provider Surgery
DX: C50.919 Malignant neoplasm of unspecified site of unspecified female breast (principal)
CPT/HCPCS: 99214

== ENCOUNTER → 2022-12-27 14:23 | Outpatient (BNVA) | payer MEDICARE, SELFPAY | PROVIDERS: PCP Internal Medicine; Visit Provider Surgery | DX: C50.812 Malignant neoplasm of overlapping sites of left female breast (principal) | CPT/HCPCS: 99212 ==

== ENCOUNTER → 2023-01-02 09:54 | Outpatient (BNV) | payer MEDICARE, SELFPAY | PROVIDERS: PCP Internal Medicine; Referring Provider Internal Medicine; Visit Provider Internal Medicine Medical Oncology | DX: C50.812 Malignant neoplasm of overlapping sites of left female breast (principal) | CPT/HCPCS: 99204; 99213; 99214 ==

== ENCOUNTER 2023-01-04 08:43 | Outpatient (REF) | payer MEDICARE, SELFPAY ==
--- NOTE | ~2023-01-04 | MM_ITS ---
EXAMINATION: BONE DENSITOMETRY CLINICAL INDICATION: Osteopenia. COMPARISON: Previous BD dated 09/29/2016 and baseline BD dated 01/09/2007. TECHNIQUE: Using a [employer] DXA System (software version: 13.1) manufactured by [employer], dual-energy x-ray absorptiometry was performed of the lumbar spine and left hip. The images are of good technical quality. Summary results are attached. FINDINGS: LEFT FEMUR, NECK: Current: BMD 1.027 g/cm2, Z-score 1.1, T-score -0.1, normal. Prior: BMD 1.058 g/cm2. Baseline: BMD 1.025 g/cm2. LEFT FEMUR, TOTAL: Current: BMD 1.144 g/cm2, Z-score 2.0, T-score 1.1, normal, 2.4% decrease from previous, 3.9% decrease from baseline (<5% change is not significant). Prior: BMD 1.172 g/cm2. Baseline: BMD 1.191 g/cm2. AP SPINE L1-L4 (excluding L3): The data of L1-L4 has been changed to exclude the L3 vertebral body, because degenerative sclerosis at this level may cause overestimation of lumbar spine density. Current: BMD 1.324 g/cm2, Z-score 1.9, T-score 1.3, normal, 8.3% increase from previous, 19.4% increase from baseline (<5% change is not significant). Prior: BMD 1.222 g/cm2. Baseline: BMD 1.109 g/cm2. IDENTIFIED RISK FACTORS: Menopause, thiazide. HISTORY OF FRACTURE: None listed. MEDICATIONS: Vitamin D. MM/XR DEXA axial skeleton IMPRESSION: 1. DIAGNOSIS: Normal bone density based on the lowest T-score value of -0.1 in the femoral neck applying World Health Organization criteria. 2. 10-YEAR FRACTURE RISK PREDICTION, FRAX: According to the guidelines, FRAX calculation should only be performed on patients in the osteopenia bone density category. Therefore, FRAX was not performed on this patient. 3. Treatment Recommendations: NOF guidelines recommend consideration for treatment in postmenopausal women and men age 50 and older presenting with the following: -A hip or vertebral (clinical or morphometric) fracture. -T-score less than or equal to -2.5 at the femoral neck or spine after appropriate evaluation to exclude secondary causes. -Low bone mass at the hip or spine and a 10-year fracture probability by FRAX of greater than or equal to 3% for hip fracture or greater than or equal to 20% for major osteoporotic fracture based on the [place] adapted WHO algorithm. 4. Other Recommendations: All treatment decisions require clinical judgment and consideration of individual patient factors, including patient preferences, comorbidities, previous drug use, risk factors not captured in the FRAX model (e.g. frailty, falls, vitamin D deficiency, increased bone turnover, interval significant decline in bone density) and possible under or overestimation of fracture risk by FRAX. FUTURE SCAN RECOMMENDATION: People with diagnosed cases of osteoporosis or at high risk for fracture should have regular bone mineral density tests. For patients eligible for Medicare, routine testing is allowed once every 2 years. The testing frequency can be increased to one year for patients who have rapidly progressing disease, those who are receiving or discontinuing medical therapy to restore bone mass, or have additional risk factors.
== END 2023-01-04 08:44 | disposition home or self-care (01) ==
LOC: HO.MAMMO 08:43
PROVIDERS: PCP Internal Medicine; Visit Provider Internal Medicine Medical Oncology
DX: Z13.820 Encounter for screening for osteoporosis (principal); Z78.0 Asymptomatic menopausal state
CPT/HCPCS: 77080

== ENCOUNTER 2023-01-08 14:18 | Day surgery (SDC) | payer MEDICARE, SELFPAY ==
[2023-01-04 15:46] VITALS: BMI 39.5
--- NOTE | 2023-01-05 10:30 | P.CONAN_ITS ---
Documented by User: Katia Moreno NP 01/05/23 10:31 HPI - Anesthesia Eval Consult details Narrative: 77yo F for Left Mastectomy Simple, Left [place] Node Biopsy PMFSH Active Problems Active Problems: All Active Problems (Updated 01/02/23 @ 10:05 by Raúl Hermosillo MD) Invasive ductal carcinoma of breast (Acute) Invasive ductal carcinoma of left breast, stage 1 (Acute) Type 2 diabetes mellitus without complication, without long-term current use of insulin (Acute) Menopause (Acute) Dyslipidemia (Acute) Essential hypertension (Acute) Past Medical History Medical History Invasive ductal carcinoma of breast Invasive ductal carcinoma of left breast, stage 1 Type 2 diabetes mellitus without complication, without long-term current use of insulin Menopause Dyslipidemia Essential hypertension Family History Family History Mother Breast cancer Brother No problems noted. Son No problems noted. Daughter No problems noted. Other Mental health disorder Surgical History Surgical History H/O left breast biopsy History of colonoscopy History of tonsillectomy Social History Social History (Updated 01/04/23 @ 15:46 by Consuelo Alicea RN) Housing: Condominium Are you a primary professional healthcare representative to a significant other at home: No Do you presently have visiting nurse or other home services: No Alcohol intake: never Patient Tobacco Use Status: Never used Tobacco e-Cigarette/Vaping Use: Never Used Second Hand Smoke Exposure: No (as a child ) Use of substances other than those prescribed or required for medical reasons: No service: No Current occupational status: retired Cognitive needs: No Hearing needs: No Vision needs: Yes Meds Allergies Allergy/AdvReac Type Severity Reaction Status Date / Time amlodipine Allergy Unknown told to Verified 01/08/23 07:04 avoid lisinopril [LISINOPRIL] AdvReac Intermediate TACHYCARDIA Verified 01/08/23 07:04 moxifloxacin [From VIGAMOX] AdvReac Intermediate increased Verified 01/08/23 07:04 eye irritation BANDAIDS Allergy Mild RASH Uncoded 01/08/23 07:04 Home Medications Medication Instructions Recorded Confirmed Last Taken Type calcium carbonate 390 mg calcium 390 mg PO DAILY 03/15/20 01/04/23 Unknown History (1,000 mg) tablet cholecalciferol (vitamin D3) 25 25 mcg PO DAILY 03/15/20 01/04/23 Unknown History mcg (1,000 unit) capsule omega-3 fatty acids 1,000 mg 1,000 mg PO BID 03/15/20 01/04/23 Unknown History capsule (Fish Oil Concentrate) aspirin 81 mg tablet,delayed 81 mg PO DAILY 07/28/21 01/04/23 01/03/23 08:00 History release (Adult Low Dose Aspirin) Exam Exam Date and Time: January 05, 2023 1030 Height,Weight and Vital Signs: Height 5 ft 4 in Weight 104.326 kg Pertinent Lab Results Pertinent Lab Results: Laboratory Tests 01/02/23 10:52 WBC 5.5 Hgb 12.6 Hct 36.9 L Plt Count 203 Sodium 136 Potassium 4.3 Chloride 100 Carbon Dioxide 30 H BUN 13 Creatinine 0.78 Assessment and Plan Assessment Anesthesia Assessment: Chart Reviewed Documented by User: Demian Palacios MD 01/08/23 10:04 [facility] Past Medical History Medical History Invasive ductal carcinoma of breast Invasive ductal carcinoma of left breast, stage 1 Type 2 diabetes mellitus without complication, without long-term current use of insulin Menopause Dyslipidemia Essential hypertension Family History Family History Mother Breast cancer Brother No problems noted. Son No problems noted. Daughter No problems noted. Other Mental health disorder Family history of problems with anesthesia: No Surgical History Surgical History H/O left breast biopsy History of colonoscopy History of tonsillectomy History of Problems with Anesthesia: No Social History Social History (Updated 01/04/23 @ 15:46 by Consuelo Alicea RN) Housing: Condominium Are you a primary professional healthcare representative to a significant other at home: No Do you presently have visiting nurse or other home services: No Alcohol intake: never Patient Tobacco Use Status: Never used Tobacco e-Cigarette/Vaping Use: Never Used Second Hand Smoke Exposure: No (as a child ) Use of substances other than those prescribed or required for medical reasons: No service: No Current occupational status: retired Cognitive needs: No Hearing needs: No Vision needs: Yes Meds Allergies Allergy/AdvReac Type Severity Reaction Status Date / Time amlodipine Allergy Unknown told to Verified 01/08/23 07:04 avoid lisinopril [LISINOPRIL] AdvReac Intermediate TACHYCARDIA Verified 01/08/23 07:04 moxifloxacin [From VIGAMOX] AdvReac Intermediate increased Verified 01/08/23 07:04 eye irritation BANDAIDS Allergy Mild RASH Uncoded 01/08/23 07:04 Home Medications Medication Instructions Recorded Confirmed Last Taken Type calcium carbonate 390 mg calcium 390 mg PO DAILY 03/15/20 01/04/23 Unknown History (1,000 mg) tablet cholecalciferol (vitamin D3) 25 25 mcg PO DAILY 03/15/20 01/04/23 Unknown History mcg (1,000 unit) capsule omega-3 fatty acids 1,000 mg 1,000 mg PO BID 03/15/20 01/04/23 Unknown History capsule (Fish Oil Concentrate) aspirin 81 mg tablet,delayed 81 mg PO DAILY 07/28/21 01/04/23 01/03/23 08:00 History release (Adult Low Dose Aspirin) Exam Airway Mallampati Class: II TM Dist: >3cm Loose/Missing/Broken Teeth: No Heart: rrr Lungs: cta Assessment and Plan Final Anesthetic Review Family History of Problems with Anesthesia: No History of Problems with Anesthesia: No NPO: Yes ASA Class: III Final Preanesthetic Review: No Changes in Pt Med Stat, Meds/Allgs Chart Reviewed, Consent Obtained/Reviewed and Anes Risks/Benef Reviewed Patient Risk: Intermediate Procedure Risk: Intermediate Anesthetic Plan Anesthetic Plan: GA and Agree w/ Assess. and Plan Disposition: Standard PACU
[2023-01-08] VITALS (19 sets, daily range): BP systolic 69–168; BP diastolic 29–78; PULSE 63–89; RESP 12–20; TEMP 36.1–37; O2SAT 95–99
--- NOTE | 2023-01-08 | ECG_ITS ---
Test Reason : vasovagal episode Blood Pressure : / mmHG Vent. Rate : 077 BPM Atrial Rate : 077 BPM P-R Int : 204 ms QRS Dur : 090 ms QT Int : 396 ms P-R-T Axes : 053 -51 042 degrees QTc Int : 448 ms Normal sinus rhythm Left anterior fascicular block Abnormal ECG No previous ECGs available Referred By: Callie Solorzano Electronically Signed By:GOPAL DRIVER
--- NOTE | ~2023-01-08 | NM_ITS ---
EXAMINATION: NM LYMPH NODE SCINTIGRAPHY CLINICAL INFORMATION: Invasive ductal carcinoma grade 1. COMPARISON: None available. TECHNIQUE: Following explaining left breast sentinel node procedure, benefits and risks, a written informed consent was obtained. Patient was placed supine on nuclear medicine stretcher and area around the left breast areola was cleaned and draped in usual sterile manner. Initially 4% lidocaine jelly was applied 30 minutes prior to the procedure. 0.500 uCi of 99-M technetium Lymphoseek divided in 4 equal doses was injected in 4 quadrants around the left breast areola and imaging obtained 30 minutes later. Patient tolerated procedure extremely well. FINDINGS: On imaging 30 minutes postinjection, there is normal isotope activity seen in the 4 quadrants around the left breast areola. There is solitary activity seen in the left retroareolar lymph node. Also visualized is diffuse activity in the left superolateral breast soft tissue. There is a solitary sentinel node and smaller sentinel nodes in the left anterior axilla and lateral breast. NM/NM sentinel node w imaging IMPRESSION: Small sentinel nodes seen in the left anterior axilla with a dominant node seen initially. There is solitary activity seen in the retroareolar lymph node and soft tissue breast parenchyma laterally.
[2023-01-08] MEDS: Lactated Ringers 1,000 ML 100 ML IVCONT (07:14)
--- NOTE | 2023-01-08 07:34 | PC.NURSE ---
patient does not take any medication for diabetes and/or monitor their blood sugar at home. No POC needed per policy.
--- NOTE | 2023-01-08 08:02 | MHC.SHP ---
Pre-Procedural Eval Section A Date of Service: 01/08/23 The patient is an INPATIENT: No Changes since office visit: No Cold of Flu in the past 2 weeks, No New Medical Problems, No Changes in Medication and No Patient answered all questions The History & Physical has been completed within 30 days and I have reviewed it.: Yes Section B Chief Complaint: Malignant neoplasm of unspecified site of unspecif Allergies: Allergies Allergy/AdvReac Type Severity Reaction Status Date / Time amlodipine Allergy Unknown told to Verified 01/08/23 07:04 avoid lisinopril [LISINOPRIL] AdvReac Intermediate TACHYCARDIA Verified 01/08/23 07:04 moxifloxacin [From VIGAMOX] AdvReac Intermediate increased Verified 01/08/23 07:04 eye irritation BANDAIDS Allergy Mild RASH Uncoded 01/08/23 07:04 Plan I have reviewed the history and physical and performed a pertinent physical examination on my patient. No changes have occurred unless specified. Time Spent With Patient Time: Total time managing care of this patient today ____ minutes.
--- NOTE | 2023-01-08 13:58 | W.PM.OPN ---
Operative Note Operative Note Date of Service: 01/08/23 Narrative: Preop diagnosis: Invasive ductal cancer, left breast Postop diagnosis: The same Procedure: Left breast mastectomy, sentinel biopsy with sentinel node biopsy Surgeon: Abner Lee MD assistant auto center manager: GUILLERMO Marin the patient is a 77-year-old female recently diagnosed to have left breast cancer. She wanted to proceed with mastectomy and sentinel node biopsy. She understood the technique of the planned procedure as well as the risks, benefits, and alternatives. She had undergone sentinel node mapping earlier. I had reviewed the images and there was 1 particular hot node seen in the axilla The patient was brought to the operating room placed supine under general anesthesia via endotracheal tube. A fascial block was done by the anesthesiologist. The left arm was abducted to expose the axilla. The left chest all the way to the neck and upper arm was prepped and draped in the usual sterile fashion. A surgical time-out had been done. The patient received cefazolin 2 g IV preoperatively I made an elliptical incision on the skin of the left breast surrounding the nipple oral complex. This was done using blade 15. This carried down with electrocautery through the full-thickness of the skin subcutaneous fat. Please note that the patient had a very large breast so this did present some difficulty with technique. I carried down the incision with electrocautery through the full-thickness of the skin subcutaneous fat and developed the superior flap. I used electrocautery to developed the flap in the joni subcutaneous layer. We paid attention to the thickness of the flap to make sure that there was not to thin nor too thick. We developed this flap all the way to the level of the clavicle superiorly and the sternum medially. I then proceeded to develop the inferior flap in the same manner. The flap was developed all the way to the inframammary crease I then defined the sternal border and carried down the incision through the pectoralis fascia. I then proceeded to separate the pectoralis fascia off of the pectoralis muscle. I proceeded to dissect along this well-defined plane, periodically cauterizing perforating vessels and ligating these with Polysorb 3-0 ties to achieve hemostasis on the rise muscle. We continued to dissect the breast tissue from above the pectoralis until was able to reach the lateral border of the pectoralis muscle. I then proceeded to continue complete removal of the entire breast tissue at this level. We had sent this as a specimen The axillary fat pad was then carefully seen. I entered this with blunt dissection and used the gamma probe to identify elevated counts. There was 1 particular area with markedly elevated counts just underneath the pectoralis muscle. I continued to gently dissect this area with Metzenbaum scissors until was able to identify lymph node. This was carefully excised. This measured 758 on the gamma probe. This was sent as sentinel node 1. I also sent 1 additional axillary tissue for exam as I thought that this was a lymph node although there was no count scanning this with the gamma probe I scanned the axillary tissue repeatedly and there were no other elevated counts. I proceeded to therefore copiously irrigate. I observed for hemostasis. Once hemostasis was confirmed on the entire mastectomy site, I positioned a CORY drain on both inferior and the superior flaps, exiting on the aspect of the inferior flap. This was secured to the skin with Nylon 3-0 sutures I then started to reappose the subcutaneous layer with Polysorb 3-0 simple interrupted sutures. I had to revise the all aspect of the incision because of excess skin and subcutaneous tissue and fat. This were all sent as specimen I continued to then closure of the incision with simple subcutaneous polysorb interrupted sutures, followed by subcuticular running Polysorb 4-0 sutures. Steri-Strips and thick dressings were applied I breast binder was then placed The procedure was completed The patient tolerated procedure well. There were no immediate complications. Initial and final counts of sponges and instruments were correct. Estimated blood loss about 600 cc The patient was extubated without difficulty and transferred to the recovery room with stable vital signs. Breast [place] Node Biopsy Substrate(s) used for sentinel node biopsy in the non-neoadjuvant setting: Radiotracer All significantly radioactive nodes were removed, if radionuclide was used as the substrate for localization: Yes If clips were placed in pathology-involved nodes, those nodes were identified and removed: Yes General Surg. - Synoptic Notes Breast [place] Node Biopsy Substrate(s) used for sentinel node biopsy in the non-neoadjuvant setting: Radiotracer All significantly radioactive nodes were removed, if radionuclide was used as the substrate for localization: Yes If clips were placed in pathology-involved nodes, those nodes were identified and removed: Yes
--- NOTE | 2023-01-08 15:06 | PM.EVENT ---
Event Note Date of Service: 01/08/23 Event Note: Seen postop She underwent mastectomy, sentinel biopsy for invasive ductal cancer earlier today Seems to have adequate pain control Dressings dry CORY drains in place - minimal output, dark blood Pain management Breast binder in place I had updated her daughter Nivia Time Spent With Patient Time: Total time managing care of this patient today ____ minutes.
--- NOTE | 2023-01-08 16:47 | PHA.MEDREC ---
Pharmacy Consult ? Medication Reconciliation Pharmacy has reviewed the medication reconciliation completed by nursing.
--- NOTE | 2023-01-08 19:38 | PM.EVENT ---
Event Note Date of Service: 01/08/23 Event Note: Rapid response called about 15 minutes ago. Patient is postop day 0 from a left breast mastectomy with sentinel biopsy performed due to invasive ductal carcinoma of the left breast. She arrived to the unit around 16:00. Around 725, the patient reported to her daughter that she felt ?funny? and hot. Her daughter felt her skin it did not feel like she was hot but rather clammy. The patient denies any lightheadedness, palpitations, shortness of breath, or chest pain leading up to the episode or currently. She was also noted to be less responsive though was conscious. Respiratory therapist arrived in the room initially and patient was noted to be talking, alert and oriented x3. On arrival, patient is asymptomatic though is noted to be slightly clammy. She is A&Ox4. CN II-XII in tact, 5/5 strength BUE and BLE. There is notable swelling to the left breast/shoulder area. EKG ordered shows NSR, regular rate, no st/t wave abnormality. Blood pressure 112/58, heart rate 89, oximetry 97%. Will check CBC, BMP, troponin, BNP, and chest x-ray. Chest x-ray negative, will consider chest CT to evaluate for hematoma. In all likelihood, this was a vasovagal near-syncope. Will monitor on telemetry. Time Spent With Patient Time: Total time managing care of this patient today ____ minutes.
[2023-01-08] MEDS: ondansetron HCL 4 MG/2 ML VIAL IVPUSH (20:07)
[2023-01-08 20:14] LABS: Basophils Percent Auto 0.2 % (0-2); Eosinophils Percent Auto 0.2 % (0-4); Hematocrit 29.9 % (37.0-47.0); Hemoglobin 10.3 g/dl (12.0-16.0); Imm Gran Abs Auto 0.05 X10*3/uL (0.00-0.03); Imm Gran Pct Auto 0.3 % (0.0-0.4); Lymphocytes Absolute Auto 3.5 X10*3/uL (1.2-4.9); Lymphocytes Percent Auto 20.7 % (20-40); MANUAL DIFF FLAG SCAN; Mean Corpuscular HGB Conc 34.4 g/dl (31.0-35.0); Mean Corpuscular Hemoglobin 29.2 pg (27.0-33.0); Mean Corpuscular Volume 84.7 fL (80.0-98.0); Mean Platelet Volume 9.3 fL (9.4-12.3); Monocytes Absolute Auto 1.6 X10*3/uL (0.1-1.2); Monocytes Percent Auto 9.3 % (2-11); Neutrophils Absolute Auto 11.7 x10*3/uL (2.0-8.3); Neutrophils Percent Auto 69.3 % (45-73); Platelet Count 234 X10*3/uL (160-400); Red Blood Count 3.53 X10*6/uL (4.20-5.50); Red Cell Distribution Width 12.6 % (11.0-16.0); SCAN SMEAR FLAG 1; White Blood Count 16.8 X10*3/uL (4.8-10.8)
--- NOTE | 2023-01-08 20:15 | PC.NURSE ---
1930 pt became diaphoretic,pale and unresponsive for 15-20 seconds.rapid response called.hospitalist and cutting and splicing supervisor came to the room along with respiratory and icu nurse.pt awake at this time b/p 112/58 p-89 sats 97% 0n room air.ekg done.pt had a second episode where she became very diaphoretic and not feeling well.cutting and splicing supervisor and hospitalist came back to the room and was called and spoke with hospitalist.chest x-ray done 1 unit of blood ordered.pt went back to the or for a large hematoma to left chest.
--- NOTE | 2023-01-08 20:21 | PM.EVENT ---
Event Note Date of Service: 01/09/23 Event Note: I was called by Hospitalist for rapid response pt was apparently doing well, suddenly felt lightheaded, felt funny called nurse, BP was low in the 80s hematoma noted on left wall, so i was called large hematoma noted, BP 90s drains in place, 45 cc each IV bolus, transfuse stat explained to pt and family we need to go back to OR for evac of hematoma, control of bleeder now explained technique of procedure as well as risks, benefits and alternatives she has given consent Time Spent With Patient Time: Total time managing care of this patient today ____ minutes.
[2023-01-08 20:28] LABS: Anion Gap 16 (12-20); Blood Urea Nitrogen 17 mg/dL (9-16); Carbon Dioxide 22 mmol/L (22-29); Chloride 101 mmol/L (96-108); Creatinine Clr Calc Pharmacy 64.9; Estimated Glomerular Filt Rate > 60; Glucose Random 218 mg/dL (60-115); Potassium 4.3 mmol/L (3.3-5.1); SLIDE REVIEW VERIFIED; Sodium 135 mmol/L (135-145)
[2023-01-08 20:34] LABS: B Type Natriuretic Peptide 72 pg/mL (<100)
--- NOTE | 2023-01-08 20:34 | HO.ANESPROP2 ---
HPI - Anesthesia Eval Consult details Narrative: Post-op breast hematoma PMFSH Active Problems Active Problems: All Active Problems (Updated 01/02/23 @ 10:05 by Raúl Hermosillo MD) Invasive ductal carcinoma of breast (Acute) Invasive ductal carcinoma of left breast, stage 1 (Acute) Type 2 diabetes mellitus without complication, without long-term current use of insulin (Acute) Menopause (Acute) Dyslipidemia (Acute) Essential hypertension (Acute) Past Medical History Medical History Invasive ductal carcinoma of breast Invasive ductal carcinoma of left breast, stage 1 Type 2 diabetes mellitus without complication, without long-term current use of insulin Menopause Dyslipidemia Essential hypertension Family History Family History Mother Breast cancer Brother No problems noted. Son No problems noted. Daughter No problems noted. Other Mental health disorder Family history of problems with anesthesia: No Surgical History Surgical History H/O left breast biopsy History of colonoscopy History of tonsillectomy History of Problems with Anesthesia: No Social History Social History (Updated 01/04/23 @ 15:46 by Consuelo Alicea RN) Household Members: Friend(s) Housing: Condominium Are you a primary hourly caregiver to a significant other at home: No Do you presently have visiting nurse or other home services: No Alcohol intake: never Patient Tobacco Use Status: Never used Tobacco e-Cigarette/Vaping Use: Never Used Second Hand Smoke Exposure: No (as a child ) Use of substances other than those prescribed or required for medical reasons: No Currently Displaying Signs/Symptoms of Drug Intoxication Withdrawal: No Have you been hit, kicked, punched, or otherwise hurt by someone within the past year? If so, by whom?: No Do you feel safe in your current relationship?: No Current Relationship Is there a partner from a previous relationship who is making you feel unsafe now?: No Are you made to feel afraid or neglected: No Are you DNR?: No Advance Directives: No Advance Directives Information Provided: Yes Do you have thoughts of harming others: None Do you have a plan to hurt others: No Plan Recently lost weight without trying: No How much weight loss: Not applicable Eating poorly because of decreased appetite: No Nutrition screen score: 0 Nutrition Risks: No Nutritional Risk Patient : No : No Poor oral hygiene: No service: No Current occupational status: retired Cognitive needs: No Hearing needs: No Vision needs: Yes Meds Allergies Allergy/AdvReac Type Severity Reaction Status Date / Time amlodipine Allergy Unknown told to Verified 01/08/23 07:04 avoid lisinopril [LISINOPRIL] AdvReac Intermediate TACHYCARDIA Verified 01/08/23 07:04 moxifloxacin [From VIGAMOX] AdvReac Intermediate increased Verified 01/08/23 07:04 eye irritation BANDAIDS Allergy Mild RASH Uncoded 01/08/23 07:04 Active Medications: Current Medications Aspirin (Aspirin Enteric Coated 81 Mg Tablet.Dr) 81 mg PO DAILY [facility] Atenolol (Atenolol 50 Mg Tablet) 50 mg PO BID [facility]; Protocol Atorvastatin Calcium (Atorvastatin Calcium 20 Mg Tablet) 20 mg PO BEDTIME [facility] Calcium Carbonate (Calcium Carbonate 500 Mg Tablet) 1,000 mg PO DAILY [facility] Fentanyl (Fentanyl Citrate/Pf 100 Mcg/2 Ml Vial) 25 mcg IVPUSH Q5M PRN; Protocol PRN Reason: Pain, Moderate(Pain Scale 4-6) Heparin Sodium (Porcine) (Heparin Sodium,Porcine 5,000 Unit/Ml Vial) 5,000 unit SUBCUT Q8H [facility] Hydrochlorothiazide (Hydrochlorothiazide 25 Mg Tablet) 25 mg PO DAILY [facility] Hydromorphone HCl (Hydromorphone Hcl 0.5 Mg/0.5 Ml Syringe) 0.25 mg IVPUSH Q5M PRN; Protocol PRN Reason: Pain, Severe (Pain Scale 7-10) Acetaminophen (Ofirmev) 1,000 mg in 100 mls @ 400 mls/hr IV Q6H [facility] Stop: 01/09/23 13:44 Sodium Chloride (Ns) 100 mls @ 100 mls/hr IV ONCE ONE Stop: 01/08/23 20:50 Morphine Sulfate (Morphine Sulfate 4 Mg/Ml Cartridge) 3 mg IVPUSH Q4H PRN; Protocol PRN Reason: Pain, Severe (Pain Scale 7-10) Ondansetron HCl (Ondansetron Hcl 4 Mg/2 Ml Vial) 4 mg IVPUSH Q6H PRN PRN Reason: Nausea and Vomiting Last Admin: 01/08/23 20:07 Dose: 4 mg Oxycodone HCl (Oxycodone Hcl Immed Release 5 Mg Tablet) 10 mg PO Q4H PRN PRN Reason: Pain, Moderate(Pain Scale 4-6) Sodium Chloride (0.9 % Sodium Chloride Flush 3 Ml Syringe) 3 ml IVFLUSH QSHIFT [facility] Last Admin: 01/08/23 17:41 Dose: Not Given Valsartan (Valsartan 160 Mg Tablet) 160 mg PO DAILY [facility] Home Medications Medication Instructions Recorded Confirmed Last Taken Type calcium carbonate 390 mg calcium 390 mg PO DAILY 03/15/20 01/04/23 Unknown History (1,000 mg) tablet cholecalciferol (vitamin D3) 25 25 mcg PO DAILY 03/15/20 01/04/23 Unknown History mcg (1,000 unit) capsule omega-3 fatty acids 1,000 mg 1,000 mg PO BID 03/15/20 01/04/23 Unknown History capsule (Fish Oil Concentrate) aspirin 81 mg tablet,delayed 81 mg PO DAILY 07/28/21 01/04/23 01/03/23 08:00 History release (Adult Low Dose Aspirin) Exam Exam Date and Time: January 08, 20232033 Height,Weight and Vital Signs: Height 5 ft 4 in Weight 104.326 kg Last Vital Signs Temp 98.2 F 01/08/23 19:35 Pulse 89 01/08/23 19:35 Resp 18 01/08/23 19:35 BP 112/58 L 01/08/23 19:35 Pulse Ox 97 01/08/23 19:35 O2 Del Method Room Air 01/08/23 19:35 O2 Flow Rate 2 01/08/23 14:21 Pertinent Lab Results Pertinent Lab Results: Laboratory Tests 01/08/23 01/08/23 07:14 20:05 WBC 16.8 H RBC 3.53 L Hgb 10.3 L Hct 29.9 L MCV 84.7 MCH 29.2 MCHC 34.4 RDW 12.6 Plt Count 234 MPV 9.3 L Immature Gran % (Auto) 0.3 Neut % (Auto) 69.3 Lymph % (Auto) 20.7 [place] % (Auto) 9.3 Eos % (Auto) 0.2 Baso % (Auto) 0.2 Lymph # (Auto) 3.5 [place] # (Auto) 1.6 H Eos # (Auto) 0.0 Baso # (Auto) 0.0 Abs Immat Gran (auto) 0.05 H Absolute Neuts (auto) 11.7 H Absolute Nucleated RBC 0.000 Nucleated RBC % (auto) 0.0 Smear Tech's Comments VERIFIED Sodium 135 Potassium 4.3 Chloride 101 Carbon Dioxide 22 Anion Gap 16 BUN 17 H Creatinine 0.88 Estim Creat Clear Calc 64.9 Estimated GFR > 60 Random Glucose 218 H Calcium 9.0 D Blood Type B Negative Antibody Screen NEGATIVE Crossmatch See Detail Airway Mallampati Class: II TM Dist: >3cm Neck ROM: Full Loose/Missing/Broken Teeth: No Heart: rrr Lungs: cta Assessment and Plan Assessment Anesthesia Assessment: Anesthesia Plan Discussed and Chart Reviewed Final Anesthetic Review Family History of Problems with Anesthesia: No History of Problems with Anesthesia: No NPO: No ASA Class: III and Emergency Final Preanesthetic Review: No Changes in Pt Med Stat, Meds/Allgs Chart Reviewed, Consent Obtained/Reviewed and Anes Risks/Benef Reviewed Patient Risk: Intermediate Procedure Risk: Intermediate Anesthetic Plan Anesthetic Plan: GA Disposition: Standard PACU
[2023-01-08 20:39] LABS: Troponin-I High Sensitivity < 2.7 ng/L (<3.5-17.0)
--- NOTE | 2023-01-08 22:24 | W.PM.OPN ---
Operative Note Operative Note Date of Service: 01/08/23 Narrative: Preop diagnosis: Postop hematoma, status post mastectomy left breast Postop diagnosis: The same Procedure: Evacuation of hematoma, control of 1 small bleeding vessel on the superior/medial aspect of the chest wall with ligation Surgeon: Abner Lee MD The patient is a 77-year-old female who had undergone breast mastectomy and sentinel node biopsy earlier today. I was called because of attention and note of a hematoma on the mastectomy site at around 08:00 o'clock tonight. I explained to the patient that we needed to proceed with evacuation and the hematoma and control of bleeders. She understood the planned procedure as well as the risks, benefits, and alternatives. Her hemoglobin immediately before the procedure tonight was 10. She was brought to the operating room. She was placed supine under general seizure via endotracheal tube. The left chest was prepped and draped in the usual sterile fashion. A surgical time-out was done. The patient was ordered to have cefazolin as well. I opened up the mastectomy site. Immediately, clots were seen. I evacuated the clots from underneath the flaps. Most of the clots were from the superior flap medially. About 200 cc of clots were evacuated I examined the chest wall of the mastectomy site. I was able to see 1 small arterial bleeder from the exposed pectoralis. This was ligated using a Polysorb 3-0 tie. I examined the entire mastectomy site and the created the rest of the clots. I observed for any other bleeder. We observed for about 20 minutes. There was note of some oozing from raw areas of the urologist. I applied Snow absorbablel hemostatic agent to the raw areas of the pectoralis. We observed for hemostasis again. I placed a third JP10 drain to the superior and medial aspect of the flap. This was secured to the skin with nylon 3-0 sutures to the older two drains. I reapposed the subcutaneous layer Polysorb 3-0 simple interrupted sutures. Skin closure was achieved with skin emre this time. Thick pressure dressings were applied. The procedure was completed She tolerated procedure well. There were no immediate complications. Per the anesthesiologist, she was hemodynamically stable during the procedure. I will check another H&H postop I have updated her daughter Nivia.
[2023-01-08 22:44] LABS: Hematocrit 29.6 % (37.0-47.0); Hemoglobin 10.4 g/dl (12.0-16.0)
[2023-01-09] VITALS (9 sets, daily range): BP systolic 116–151; BP diastolic 56–64; PULSE 73–84; RESP 16–20; TEMP 36.1–37.7; O2SAT 98–99
[2023-01-09] MEDS: Atorvastatin Calcium 20 MG TABLET PO ×2 (01:08→21:13)
[2023-01-09] MEDS: Acetaminophen 1,000 MG/100 ML PIGGYBACK 400 MG IV ×3 (01:08→13:14)
[2023-01-09] MEDS: 0.9 % Sodium Chloride Flush 3 ML SYRINGE IVFLUSH (01:08)
[2023-01-09] MEDS: Lactated Ringers 1,000 ML 80 ML IVCONT ×2 (01:15→13:14)
--- NOTE | 2023-01-09 06:03 | P.CONHOSP_ITS ---
History of Present Illness Data of Consult Service Date: 01/08/23 Primary Care Provider: Dorene Martinez MD HPI A rapid response was called on this patient around 19:30,. Patient is postop day 0 from a left breast mastectomy with sentinel biopsy performed due to invasive ductal call Carcinoma of the left breast. according to history provided from the daughter at bedside as well as the nurse who arrived when her daughter called for help it appears the patient told her daughter that she is not feeling well, she started feeling diaphoretic, and loss consciousness for about 20 seconds. Patient came about when I was in the room, completely normal, stable BP, with no confusion. Patient reports that she felt very AL, diaphoretic, loss consciousness. She denies palpitations, no dizziness prior to the episodes, no chest pain, no shortness of breath. Patient denies any similar previous episodes. Vitals during be initial rapid response were stable but patient quickly deteriorated with blood pressure dropping to the 90s over 50s. Patient heart rate tachycardic. This surgical site appear to be swollen, painful to the patient. At this time we suspected hematoma, surgery was called, patient was taken to the OR for evaluation. Postop patient is hemodynamically stable And admitted to the telemetry floor. CBC was obtained, hemoglobin was stable. Labs otherwise unremarkable. Patient received 1 unit of PRBC and 1 unit of LR. Review of Systems 2 Review of Systems: Yes all other systems are reviewed and are negative [facility] Medical History Invasive ductal carcinoma of breast Invasive ductal carcinoma of left breast, stage 1 Type 2 diabetes mellitus without complication, without long-term current use of insulin Menopause Dyslipidemia Essential hypertension Family History Mother Breast cancer Brother No problems noted. Son No problems noted. Daughter No problems noted. Other Mental health disorder Surgical History H/O left breast biopsy History of colonoscopy History of tonsillectomy Social History Household Members: Friend(s) Housing: Condominium Are you a primary ambulatory care to a significant other at home: No Do you presently have visiting nurse or other home services: No Alcohol intake: never Patient Tobacco Use Status: Never used Tobacco e-Cigarette/Vaping Use: Never Used Second Hand Smoke Exposure: No (as a child ) Use of substances other than those prescribed or required for medical reasons: No Currently Displaying Signs/Symptoms of Drug Intoxication Withdrawal: No Have you been hit, kicked, punched, or otherwise hurt by someone within the past year? If so, by whom?: No Do you feel safe in your current relationship?: No Current Relationship Is there a partner from a previous relationship who is making you feel unsafe now?: No Are you made to feel afraid or neglected: No Are you DNR?: No Advance Directives: No Advance Directives Information Provided: Yes Do you have thoughts of harming others: None Do you have a plan to hurt others: No Plan Recently lost weight without trying: No How much weight loss: Not applicable Eating poorly because of decreased appetite: No Nutrition screen score: 0 Nutrition Risks: No Nutritional Risk Patient : No : No Poor oral hygiene: No service: No Current occupational status: retired Cognitive needs: No Hearing needs: No Vision needs: Yes Meds Allergies Allergy/AdvReac Type Severity Reaction Status Date / Time amlodipine Allergy Unknown told to Verified 01/08/23 07:04 avoid lisinopril [LISINOPRIL] AdvReac Intermediate TACHYCARDIA Verified 01/08/23 07:04 moxifloxacin [From VIGAMOX] AdvReac Intermediate increased Verified 01/08/23 07:04 eye irritation BANDAIDS Allergy Mild RASH Uncoded 01/08/23 07:04 Active Medications: Current Medications Aspirin (Aspirin Enteric Coated 81 Mg Tablet.) 81 mg PO DAILY [facility] Atenolol (Atenolol 50 Mg Tablet) 50 mg PO BID [facility]; Protocol Last Admin: 01/09/23 00:22 Dose: Not Given Atorvastatin Calcium (Atorvastatin Calcium 20 Mg Tablet) 20 mg PO BEDTIME [facility] Last Admin: 01/09/23 01:08 Dose: 20 mg Calcium Carbonate (Calcium Carbonate 500 Mg Tablet) 1,000 mg PO DAILY [facility] Fentanyl (Fentanyl Citrate/Pf 100 Mcg/2 Ml Vial) 25 mcg IVPUSH Q5M PRN; Protocol PRN Reason: Pain, Moderate(Pain Scale 4-6) Fentanyl (Fentanyl Citrate/Pf 100 Mcg/2 Ml Vial) 50 mcg IVPUSH Q5M PRN; Protocol PRN Reason: Pain, Severe (Pain Scale 7-10) Hydrochlorothiazide (Hydrochlorothiazide 25 Mg Tablet) 25 mg PO DAILY [facility] Hydromorphone HCl (Hydromorphone Hcl 0.5 Mg/0.5 Ml Syringe) 0.25 mg IVPUSH Q5M PRN; Protocol PRN Reason: Pain, Severe (Pain Scale 7-10) Hydromorphone HCl (Hydromorphone Hcl 0.5 Mg/0.5 Ml Syringe) 0.5 mg IVPUSH Q5M PRN; Protocol PRN Reason: Pain, Severe (Pain Scale 7-10) Acetaminophen (Ofirmev) 1,000 mg in 100 mls @ 400 mls/hr IV Q6H [facility] Stop: 01/09/23 13:44 Last Infusion: 01/09/23 01:56 Dose: Infused Lactated Ringer's (Lr) 1,000 mls @ 80 mls/hr IVCONT .[id number] [facility] Last Admin: 01/09/23 01:15 Dose: 80 mls/hr Morphine Sulfate (Morphine Sulfate 4 Mg/Ml Cartridge) 3 mg IVPUSH Q4H PRN; Protocol PRN Reason: Pain, Severe (Pain Scale 7-10) Ondansetron HCl (Ondansetron Hcl 4 Mg/2 Ml Vial) 4 mg IVPUSH Q6H PRN PRN Reason: Nausea and Vomiting Last Admin: 01/08/23 20:07 Dose: 4 mg Oxycodone HCl (Oxycodone Hcl Immed Release 5 Mg Tablet) 10 mg PO Q4H PRN PRN Reason: Pain, Moderate(Pain Scale 4-6) Sodium Chloride (0.9 % Sodium Chloride Flush 3 Ml Syringe) 3 ml IVFLUSH QSHIFT [facility] Last Admin: 01/09/23 01:08 Dose: 3 ml Valsartan (Valsartan 160 Mg Tablet) 160 mg PO DAILY [facility] Home Medications Medication Instructions Recorded Confirmed Last Taken Type calcium carbonate 390 mg calcium 390 mg PO DAILY 03/15/20 01/04/23 Unknown History (1,000 mg) tablet cholecalciferol (vitamin D3) 25 25 mcg PO DAILY 03/15/20 01/04/23 Unknown History mcg (1,000 unit) capsule omega-3 fatty acids 1,000 mg 1,000 mg PO BID 03/15/20 01/04/23 Unknown History capsule (Fish Oil Concentrate) aspirin 81 mg tablet,delayed 81 mg PO DAILY 07/28/21 01/04/23 01/03/23 08:00 History release (Adult Low Dose Aspirin) Physical Exam 2 Vital Signs and Narrative: Vital Signs: Last Vital Signs Temp 97.9 F 01/09/23 03:29 Pulse 76 01/09/23 03:29 Resp 18 01/09/23 03:29 BP 120/56 L 01/09/23 03:29 Pulse Ox 98 01/09/23 03:29 O2 Del Method Room Air 01/09/23 03:29 O2 Flow Rate 2 01/08/23 23:12 BMI result Body Mass Index 39.5 Const: General: cooperative and no acute distress O rientation/consciousness: patient oriented x3 Eyes: General: appearance normal, both eyes and all related structures Chest: Other: Left breast mastectomy, site is swollen, mild ecchymosis Resp: Effort & Inspection: normal respiratory effort Auscultation: clear to auscultation bilaterally Cardio: Rate: regular rate Rhythm: regular rhythm GI: Palpation (GI): Soft to palpation Auscultation: normal bowel sounds Skin: General skin exam: no rashes or lesions noted Neuro: General: patient oriented x3 Cognition (Neuro): normal cognition Extrem: General: Yes normal to inspection and Yes no pedal edema Results Labs 01/08/23 22:36 01/08/23 20:05 Labs: Laboratory Results - last 24 hr 01/08/23 01/08/23 07:14 20:05 MCV 84.7 MCH 29.2 MCHC 34.4 RDW 12.6 Plt Count 234 MPV 9.3 L Immature Gran % (Auto) 0.3 Neut % (Auto) 69.3 Lymph % (Auto) 20.7 [place] % (Auto) 9.3 Eos % (Auto) 0.2 Baso % (Auto) 0.2 Lymph # (Auto) 3.5 [place] # (Auto) 1.6 H Eos # (Auto) 0.0 Baso # (Auto) 0.0 Abs Immat Gran (auto) 0.05 H Absolute Neuts (auto) 11.7 H Absolute Nucleated RBC 0.000 Nucleated RBC % (auto) 0.0 Smear Tech's Comments VERIFIED Anion Gap 16 Estim Creat Clear Calc 64.9 Estimated GFR > 60 Random Glucose 218 H Calcium 9.0 D B-Natriuretic Peptide 72 Blood Type B Negative Antibody Screen NEGATIVE Crossmatch See Detail Assessment and Plan (1) Invasive ductal carcinoma of breast: Qualifiers: Laterality: left Qualified Code(s): C50.912 - Malignant neoplasm of unspecified site of left female breast Status: Acute (2) Syncope: Qualifiers: Syncope type: vasovagal syncope Qualified Code(s): R55 - Syncope and collapse Status: Acute Plan 77-year-old female who was admitted to the hospital postop day 0, had a rapid response called on her for syncopal episode that lasted about 20 seconds. # Syncope - possibly vasovagal versus orthostatic Given possible hematoma - although CBC drawn during rapid response shows no dropped - EKG showed no arrhythmia, labs otherwise unremarkable - patient receive 1 unit of PRBC, and 1 L of fluid - patient taken to the OR for exploration of surgical site and evaluation of possible hematoma - admit to telemetry # status post invasive ductal carcinoma breast mastectomy on the left - being followed by surgery # hyperlipidemia - continue statin # hypertension - hold antihypertensives until blood pressure stabilizes DVT prophylaxis: Per surgery thank you for allowing us to take care of your patient Time Spent With Patient Time: Total time managing care of this patient today ____ minutes.
--- NOTE | 2023-01-09 07:36 | PM.PNGS ---
Subjective Subjective Date of Service: 01/10/23 Interval history: says she feels well had a good night denies pain Physical Exam Vital Signs: Vital Signs: Last Vital Signs Temp 99.8 F 01/09/23 07:23 Pulse 81 01/09/23 07:23 Resp 16 01/09/23 07:23 BP 119/57 L 01/09/23 07:23 Pulse Ox 99 01/09/23 07:23 O2 Del Method Room Air 01/09/23 07:23 O2 Flow Rate 2 01/08/23 23:12 BMI result Body Mass Index 39.5 Const: General: comfortable and no acute distress Chest: Other: dressings in place; CORY drains with old blood, scanty Resp: Effort & Inspection: normal respiratory effort Cardio: Rate: regular rate GI: Palpation (GI): Soft to palpation and not firm Objective Data Active Medications Aspirin (Aspirin Enteric Coated 81 Mg Tablet.) 81 mg PO DAILY [facility] Atenolol (Atenolol 50 Mg Tablet) 50 mg PO BID [facility]; Protocol Last Admin: 01/09/23 00:22 Dose: Not Given Documented By: EZEQUIEL Non-Admin Reason: low HR Atorvastatin Calcium (Atorvastatin Calcium 20 Mg Tablet) 20 mg PO BEDTIME [facility] Last Admin: 01/09/23 01:08 Dose: 20 mg Documented By: EZEQUIEL Calcium Carbonate (Calcium Carbonate 500 Mg Tablet) 1,000 mg PO DAILY [facility] Fentanyl (Fentanyl Citrate/Pf 100 Mcg/2 Ml Vial) 25 mcg IVPUSH Q5M PRN; Protocol PRN Reason: Pain, Moderate(Pain Scale 4-6) Fentanyl (Fentanyl Citrate/Pf 100 Mcg/2 Ml Vial) 50 mcg IVPUSH Q5M PRN; Protocol PRN Reason: Pain, Severe (Pain Scale 7-10) Hydrochlorothiazide (Hydrochlorothiazide 25 Mg Tablet) 25 mg PO DAILY [facility] Hydromorphone HCl (Hydromorphone Hcl 0.5 Mg/0.5 Ml Syringe) 0.25 mg IVPUSH Q5M PRN; Protocol PRN Reason: Pain, Severe (Pain Scale 7-10) Hydromorphone HCl (Hydromorphone Hcl 0.5 Mg/0.5 Ml Syringe) 0.5 mg IVPUSH Q5M PRN; Protocol PRN Reason: Pain, Severe (Pain Scale 7-10) Acetaminophen (Ofirmev) 1,000 mg in 100 mls @ 400 mls/hr IV Q6H [facility] Stop: 01/09/23 13:44 Last Infusion: 01/09/23 01:56 Dose: Infused Documented By: EZEQUIEL Lactated Ringer's (Lr) 1,000 mls @ 80 mls/hr IVCONT .[id number] [facility] Last Admin: 01/09/23 01:15 Dose: 80 mls/hr Documented By: EZEQUIEL Morphine Sulfate (Morphine Sulfate 4 Mg/Ml Cartridge) 3 mg IVPUSH Q4H PRN; Protocol PRN Reason: Pain, Severe (Pain Scale 7-10) Ondansetron HCl (Ondansetron Hcl 4 Mg/2 Ml Vial) 4 mg IVPUSH Q6H PRN PRN Reason: Nausea and Vomiting Last Admin: 01/08/23 20:07 Dose: 4 mg Documented By: CHRIS Oxycodone HCl (Oxycodone Hcl Immed Release 5 Mg Tablet) 10 mg PO Q4H PRN PRN Reason: Pain, Moderate(Pain Scale 4-6) Sodium Chloride (0.9 % Sodium Chloride Flush 3 Ml Syringe) 3 ml IVFLUSH QSHIFT [facility] Last Admin: 01/09/23 01:08 Dose: 3 ml Documented By: EZEQUIEL Valsartan (Valsartan 160 Mg Tablet) 160 mg PO DAILY [facility] Labs 01/10/23 06:17 01/08/23 20:05 Labs: Laboratory Results - last 24 hr 01/08/23 01/08/23 07:14 20:05 MCV 84.7 MCH 29.2 MCHC 34.4 RDW 12.6 Plt Count 234 MPV 9.3 L Immature Gran % (Auto) 0.3 Neut % (Auto) 69.3 Lymph % (Auto) 20.7 [place] % (Auto) 9.3 Eos % (Auto) 0.2 Baso % (Auto) 0.2 Lymph # (Auto) 3.5 [place] # (Auto) 1.6 H Eos # (Auto) 0.0 Baso # (Auto) 0.0 Abs Immat Gran (auto) 0.05 H Absolute Neuts (auto) 11.7 H Absolute Nucleated RBC 0.000 Nucleated RBC % (auto) 0.0 Smear Tech's Comments VERIFIED Anion Gap 16 Estim Creat Clear Calc 64.9 Estimated GFR > 60 Random Glucose 218 H Calcium 9.0 D B-Natriuretic Peptide 72 Blood Type B Negative Antibody Screen NEGATIVE Crossmatch See Detail Procedures Date of Service Date of Service: 01/10/23 Progress Note: A&P Assessment and plan (1) Hematoma: Status: Acute (2) Invasive ductal carcinoma of breast: Status: Acute Assessment and Plan: S/P mastectomy, sentinel node bx developed hematoma, underwent evacuation, control of bleeder last nigh transfused 1 unit pRBC last night repeat H/H pending looks well CORY drains in place Time Spent With Patient Time: Total time managing care of this patient today ____ minutes. Quality Stroke Does the patient have a stroke diagnosis?: No VTE Prior VTE?: No VTE Risk Level:: Medical - moderate - high VTE Device Contraindication: N/A - Device Ordered VTE Drug Contraindication: N/A - Med Ordered
[2023-01-09] MEDS: Aspirin Enteric Coated 81 MG TABLET.DR PO (08:21)
[2023-01-09] MEDS: hydroCHLOROthiazide 25 MG TABLET PO (08:22)
[2023-01-09] MEDS: Valsartan 160 MG TABLET PO (08:22)
--- NOTE | 2023-01-09 11:30 | P.CONHOSP_ITS ---
History of Present Illness Data of Consult Service Date: 01/09/23 Primary Care Provider: Dorene Martinez MD HPI 77-year-old woman admitted by general surgery for mastectomy. Unfortunately patient developed a hematoma and was taken back to the OR last evening for hematoma evacuation. She was given a transfusion of packed red blood cells. She did have some episodes of hypotension that led to the diagnosis of the hematoma. At this point patient is hemodynamically stable. Out of bed ambulating, good appetite. Denies any pain. Review of Systems 2 Review of Systems: Denies any recent fever chills or decrease in appetite respiratory denies any shortness of breath coverage production cardiovascular denies chest pain gastrointestinal denies any dysphagia abdominal pain nausea vomiting or diarrhea genitourinary denies any dysuria frequency or hematuria musculoskeletal denies any joint pain or swelling neuropsych denies any weakness or seizures all other systems reviewed are negative [facility] Medical History (Updated 01/09/23 @ 11:33 by Claudia Duron NP) Hematoma Invasive ductal carcinoma of left breast, stage 1 Type 2 diabetes mellitus without complication, without long-term current use of insulin Menopause Dyslipidemia Essential hypertension Family History Mother Breast cancer Brother No problems noted. Son No problems noted. Daughter No problems noted. Other Mental health disorder Surgical History H/O left breast biopsy History of colonoscopy History of tonsillectomy Social History Household Members: Friend(s) Housing: Condominium Are you a primary healthcare or medical to a significant other at home: No Do you presently have visiting nurse or other home services: No Alcohol intake: never Patient Tobacco Use Status: Never used Tobacco e-Cigarette/Vaping Use: Never Used Second Hand Smoke Exposure: No (as a child ) Use of substances other than those prescribed or required for medical reasons: No Currently Displaying Signs/Symptoms of Drug Intoxication Withdrawal: No Have you been hit, kicked, punched, or otherwise hurt by someone within the past year? If so, by whom?: No Do you feel safe in your current relationship?: No Current Relationship Is there a partner from a previous relationship who is making you feel unsafe now?: No Are you made to feel afraid or neglected: No Are you DNR?: No Advance Directives: No Advance Directives Information Provided: Yes Do you have thoughts of harming others: None Do you have a plan to hurt others: No Plan Recently lost weight without trying: No How much weight loss: Not applicable Eating poorly because of decreased appetite: No Nutrition screen score: 0 Nutrition Risks: No Nutritional Risk Patient : No : No Poor oral hygiene: No service: No Current occupational status: retired Cognitive needs: No Hearing needs: No Vision needs: Yes Meds Allergies Allergy/AdvReac Type Severity Reaction Status Date / Time amlodipine Allergy Unknown told to Verified 01/08/23 07:04 avoid lisinopril [LISINOPRIL] AdvReac Intermediate TACHYCARDIA Verified 01/08/23 07:04 moxifloxacin [From VIGAMOX] AdvReac Intermediate increased Verified 01/08/23 07:04 eye irritation BANDAIDS Allergy Mild RASH Uncoded 01/08/23 07:04 Active Medications: Current Medications Aspirin (Aspirin Enteric Coated 81 Mg Tablet.) 81 mg PO DAILY [facility] Last Admin: 01/09/23 08:21 Dose: 81 mg Atenolol (Atenolol 50 Mg Tablet) 50 mg PO BID [facility]; Protocol Last Admin: 01/09/23 08:25 Dose: Not Given Atorvastatin Calcium (Atorvastatin Calcium 20 Mg Tablet) 20 mg PO BEDTIME [facility] Last Admin: 01/09/23 01:08 Dose: 20 mg Calcium Carbonate (Calcium Carbonate 500 Mg Tablet) 1,000 mg PO DAILY [facility] Last Admin: 01/09/23 08:21 Dose: 1,000 mg Fentanyl (Fentanyl Citrate/Pf 100 Mcg/2 Ml Vial) 25 mcg IVPUSH Q5M PRN; Protocol PRN Reason: Pain, Moderate(Pain Scale 4-6) Fentanyl (Fentanyl Citrate/Pf 100 Mcg/2 Ml Vial) 50 mcg IVPUSH Q5M PRN; Protocol PRN Reason: Pain, Severe (Pain Scale 7-10) Hydrochlorothiazide (Hydrochlorothiazide 25 Mg Tablet) 25 mg PO DAILY [facility] Last Admin: 01/09/23 08:22 Dose: 25 mg Hydromorphone HCl (Hydromorphone Hcl 0.5 Mg/0.5 Ml Syringe) 0.25 mg IVPUSH Q5M PRN; Protocol PRN Reason: Pain, Severe (Pain Scale 7-10) Hydromorphone HCl (Hydromorphone Hcl 0.5 Mg/0.5 Ml Syringe) 0.5 mg IVPUSH Q5M PRN; Protocol PRN Reason: Pain, Severe (Pain Scale 7-10) Acetaminophen (Ofirmev) 1,000 mg in 100 mls @ 400 mls/hr IV Q6H [facility] Stop: 01/09/23 13:44 Last Infusion: 01/09/23 08:46 Dose: Infused Lactated Ringer's (Lr) 1,000 mls @ 80 mls/hr IVCONT .[id number] [facility] Last Admin: 01/09/23 01:15 Dose: 80 mls/hr Morphine Sulfate (Morphine Sulfate 4 Mg/Ml Cartridge) 3 mg IVPUSH Q4H PRN; Protocol PRN Reason: Pain, Severe (Pain Scale 7-10) Ondansetron HCl (Ondansetron Hcl 4 Mg/2 Ml Vial) 4 mg IVPUSH Q6H PRN PRN Reason: Nausea and Vomiting Last Admin: 01/08/23 20:07 Dose: 4 mg Oxycodone HCl (Oxycodone Hcl Immed Release 5 Mg Tablet) 10 mg PO Q4H PRN PRN Reason: Pain, Moderate(Pain Scale 4-6) Sodium Chloride (0.9 % Sodium Chloride Flush 3 Ml Syringe) 3 ml IVFLUSH QSHIFT [facility] Last Admin: 01/09/23 08:21 Dose: Not Given Valsartan (Valsartan 160 Mg Tablet) 160 mg PO DAILY [facility] Last Admin: 01/09/23 08:22 Dose: 160 mg Home Medications Medication Instructions Recorded Confirmed Last Taken Type calcium carbonate 390 mg calcium 390 mg PO DAILY 03/15/20 01/04/23 Unknown History (1,000 mg) tablet cholecalciferol (vitamin D3) 25 25 mcg PO DAILY 03/15/20 01/04/23 Unknown History mcg (1,000 unit) capsule omega-3 fatty acids 1,000 mg 1,000 mg PO BID 03/15/20 01/04/23 Unknown History capsule (Fish Oil Concentrate) aspirin 81 mg tablet,delayed 81 mg PO DAILY 07/28/21 01/04/23 01/03/23 08:00 History release (Adult Low Dose Aspirin) Physical Exam 2 Vital Signs and Narrative: Vital Signs: Last Vital Signs Temp 98.5 F 01/09/23 11:07 Pulse 75 01/09/23 11:07 Resp 16 01/09/23 11:07 BP 126/60 01/09/23 11:07 Pulse Ox 98 01/09/23 11:07 O2 Del Method Room Air 01/09/23 11:07 O2 Flow Rate 2 01/08/23 23:12 BMI result Body Mass Index 39.5 Appearing in no acute distress head is normocephalic atraumatic eyes pupils are PERRLA sclera is anicteric mouth throat mucous membranes are intact and moist neck is supple no lymphadenopathy, no JVD noted lung sounds are clear to auscultation heart regular rate rhythm, clear S1, S2 positive bowel sounds, abdomen is soft, nontender neuro patient is alert x3, no focal deficits Surgical dressing intact Results Labs 01/10/23 06:17 01/08/23 20:05 Labs: Laboratory Results - last 24 hr 01/08/23 01/08/23 07:14 20:05 MCV 84.7 MCH 29.2 MCHC 34.4 RDW 12.6 Plt Count 234 MPV 9.3 L Immature Gran % (Auto) 0.3 Neut % (Auto) 69.3 Lymph % (Auto) 20.7 [place] % (Auto) 9.3 Eos % (Auto) 0.2 Baso % (Auto) 0.2 Lymph # (Auto) 3.5 [place] # (Auto) 1.6 H Eos # (Auto) 0.0 Baso # (Auto) 0.0 Abs Immat Gran (auto) 0.05 H Absolute Neuts (auto) 11.7 H Absolute Nucleated RBC 0.000 Nucleated RBC % (auto) 0.0 Smear Tech's Comments VERIFIED Anion Gap 16 Estim Creat Clear Calc 64.9 Estimated GFR > 60 Random Glucose 218 H Calcium 9.0 D B-Natriuretic Peptide 72 Blood Type B Negative Antibody Screen NEGATIVE Crossmatch See Detail Imaging Radiologist's Impressions: Impressions [place] [facility] 01/08/23 08:55 IMPRESSION: Small sentinel nodes seen in the left anterior axilla with a dominant node seen initially. There is solitary activity seen in the retroareolar lymph node and soft tissue breast parenchyma laterally. Assessment and Plan (1) Hematoma: Status: Acute (2) Syncope: Qualifiers: Syncope type: vasovagal syncope Qualified Code(s): R55 - Syncope and collapse Status: Acute Plan 77-year-old woman admitted to General surgery and is status post mastectomy and hematoma evacuation Mastectomy Management as per surgical team Hematoma with evacuation Stable H&H Status post transfusion of packed red blood cells 01/08/2023 Hypertension Had episodes of hypotension due to hematoma yesterday Blood pressure stable at this point May continue home medications DVT prophylaxis as per admitting provider Medical consultation complete. Will sign off Time Spent With Patient Time: Total time managing care of this patient today ____ minutes.
[2023-01-09 12:50] LABS: Hematocrit 27.9 % (37.0-47.0); Hemoglobin 9.4 g/dl (12.0-16.0)
--- NOTE | 2023-01-09 13:52 | MHC.CM.PN ---
Met with pt and her daughter, pt did not have home health services prior to hosp., would like [facility] upon d/c, referral sent and pt accepted. Friend will provide transport upon d/c. No HCP on file, form discussed and given, pt and family will complete it and provide for chart. CM to follow and assist with d/c planning.
--- NOTE | 2023-01-09 14:31 | HO.POSTANES ---
Post Anesthesia Evaluation Post Anesthesia Evaluation Date of Service: 01/09/23 Vital Signs: Vital Signs Temp Pulse Resp BP Pulse Ox O2 Del Method 01/09/23 11:07 98.5 F 75 16 126/60 98 Room Air 01/09/23 10:05 98 Room Air 01/09/23 07:23 99.8 F 81 16 119/57 L 99 Room Air 01/09/23 03:29 97.9 F 76 18 120/56 L 98 Room Air Anesthesia: General Mental Status: Awake Pain Control: Satisfactory Nausea/Vomiting: None Hydration: Adequate Anesthesia-Related Issues: No Anes. Related Issues
[2023-01-09] MEDS: ondansetron HCL 4 MG/2 ML VIAL IVPUSH (14:43)
--- NOTE | 2023-01-09 15:42 | PM.EVENT ---
Event Note Date of Service: 01/09/23 Event Note: seen on afternoon rounds had some nausea earlier stable VS dressings changed, mastectomy site examined - no new hematoma, some edema, drains with dark old serosanguinous output I reaaplied tight thick dressings Hg at 12noon - 10.4 Time Spent With Patient Time: Total time managing care of this patient today ____ minutes.
[2023-01-09] MEDS: atenoloL 50 MG TABLET PO (21:13)
[2023-01-10] VITALS (11 sets, daily range): BP systolic 142–178; BP diastolic 54–94; PULSE 71–81; RESP 16–20; TEMP 36.6–37.5; O2SAT 96–100
[2023-01-10] MEDS: Lactated Ringers 1,000 ML 80 ML IVCONT ×2 (00:05→12:07)
[2023-01-10] MEDS: Acetaminophen 325 MG TABLET 650 MG PO ×3 (03:41→23:16)
[2023-01-10 07:30] LABS: Hematocrit 21.1 % (37.0-47.0); Hemoglobin 7.3 g/dl (12.0-16.0); Mean Corpuscular HGB Conc 34.6 g/dl (31.0-35.0); Mean Corpuscular Hemoglobin 29.7 pg (27.0-33.0); Mean Corpuscular Volume 85.8 fL (80.0-98.0); Mean Platelet Volume 9.5 fL (9.4-12.3); Platelet Count 148 X10*3/uL (160-400); Red Blood Count 2.46 X10*6/uL (4.20-5.50)
[2023-01-10 07:31] LABS: White Blood Count 5.4 X10*3/uL (4.8-10.8)
[2023-01-10] MEDS: Aspirin Enteric Coated 81 MG TABLET.DR PO (08:07)
[2023-01-10] MEDS: atenoloL 50 MG TABLET PO ×2 (08:08→21:33)
[2023-01-10] MEDS: hydroCHLOROthiazide 25 MG TABLET PO (08:09)
[2023-01-10] MEDS: Valsartan 160 MG TABLET PO (08:09)
[2023-01-10] MEDS: 0.9 % Sodium Chloride Flush 3 ML SYRINGE IVFLUSH ×3 (08:10→21:33)
--- NOTE | 2023-01-10 08:20 | PM.PNGS ---
Subjective Subjective Date of Service: 01/11/23 Interval history: feels well minimal pain no events overnight Physical Exam Vital Signs: Vital Signs: Last Vital Signs Temp 99.5 F 01/10/23 07:07 Pulse 80 01/10/23 07:07 Resp 16 01/10/23 07:07 BP 144/64 H 01/10/23 07:07 Pulse Ox 98 01/10/23 07:07 O2 Del Method Room Air 01/10/23 07:07 O2 Flow Rate 2 01/08/23 23:12 BMI result Body Mass Index 39.5 Const: Other: sitting up, having breakfast General: comfortable and no acute distress Chest: Other: dressigns dry, [address]; output not a lot, dark old serosanguinous Resp: Effort & Inspection: normal respiratory effort Cardio: Rate: regular rate GI: Palpation (GI): Soft to palpation and not firm Objective Data Active Medications Acetaminophen (Acetaminophen 325 Mg Tablet) 650 mg PO Q8H PRN PRN Reason: Pain, Moderate(Pain Scale 4-6) Last Admin: 01/10/23 03:41 Dose: 650 mg Documented By: EZEQUIEL Aspirin (Aspirin Enteric Coated 81 Mg Tablet.) 81 mg PO DAILY [facility] Last Admin: 01/10/23 08:07 Dose: 81 mg Documented By: GURPREET Atenolol (Atenolol 50 Mg Tablet) 50 mg PO BID [facility]; Protocol Last Admin: 01/10/23 08:08 Dose: 50 mg Documented By: GURPREET Atorvastatin Calcium (Atorvastatin Calcium 20 Mg Tablet) 20 mg PO BEDTIME [facility] Last Admin: 01/09/23 21:13 Dose: 20 mg Documented By: EZEQUIEL Calcium Carbonate (Calcium Carbonate 500 Mg Tablet) 1,000 mg PO DAILY [facility] Last Admin: 01/10/23 08:09 Dose: 1,000 mg Documented By: GURPREET Fentanyl (Fentanyl Citrate/Pf 100 Mcg/2 Ml Vial) 25 mcg IVPUSH Q5M PRN; Protocol PRN Reason: Pain, Moderate(Pain Scale 4-6) Fentanyl (Fentanyl Citrate/Pf 100 Mcg/2 Ml Vial) 50 mcg IVPUSH Q5M PRN; Protocol PRN Reason: Pain, Severe (Pain Scale 7-10) Hydrochlorothiazide (Hydrochlorothiazide 25 Mg Tablet) 25 mg PO DAILY [facility] Last Admin: 01/10/23 08:09 Dose: 25 mg Documented By: GURPREET Hydromorphone HCl (Hydromorphone Hcl 0.5 Mg/0.5 Ml Syringe) 0.25 mg IVPUSH Q5M PRN; Protocol PRN Reason: Pain, Severe (Pain Scale 7-10) Hydromorphone HCl (Hydromorphone Hcl 0.5 Mg/0.5 Ml Syringe) 0.5 mg IVPUSH Q5M PRN; Protocol PRN Reason: Pain, Severe (Pain Scale 7-10) Lactated Ringer's (Lr) 1,000 mls @ 60 mls/hr IVCONT .[id number] [facility] Last Admin: 01/10/23 00:05 Dose: 80 mls/hr Documented By: EZEQUIEL Sodium Chloride (Ns) 100 mls @ 100 mls/hr IV ONCE ONE Stop: 01/10/23 09:08 Morphine Sulfate (Morphine Sulfate 4 Mg/Ml Cartridge) 3 mg IVPUSH Q4H PRN; Protocol PRN Reason: Pain, Severe (Pain Scale 7-10) Ondansetron HCl (Ondansetron Hcl 4 Mg/2 Ml Vial) 4 mg IVPUSH Q6H PRN PRN Reason: Nausea and Vomiting Last Admin: 01/09/23 14:43 Dose: 4 mg Documented By: CELINA Oxycodone HCl (Oxycodone Hcl Immed Release 5 Mg Tablet) 10 mg PO Q4H PRN PRN Reason: Pain, Moderate(Pain Scale 4-6) Sodium Chloride (0.9 % Sodium Chloride Flush 3 Ml Syringe) 3 ml IVFLUSH QSHIFT [facility] Last Admin: 01/10/23 08:10 Dose: 3 ml Documented By: GURPREET Valsartan (Valsartan 160 Mg Tablet) 160 mg PO DAILY [facility] Last Admin: 01/10/23 08:09 Dose: 160 mg Documented By: GURPREET Labs 01/11/23 05:53 01/08/23 20:05 Labs: Laboratory Results - last 24 hr 01/08/23 01/10/23 07:14 06:17 MCV 85.8 MCH 29.7 MCHC 34.6 RDW 13.0 Plt Count 148 L D MPV 9.5 Absolute Nucleated RBC 0.000 Nucleated RBC % (auto) 0.0 Blood Type B Negative Antibody Screen NEGATIVE Crossmatch See Detail Procedures Date of Service Date of Service: 01/11/23 Progress Note: A&P Assessment and plan (1) Invasive ductal carcinoma of breast: Status: Acute Assessment and Plan: s/p mastectomy, SLNB, with postop hematoma requiring evacuation feels well, looks well Hg 7.3 - will transfuse vitals stable CORY drains do not show fresh bright red blood no significant pain plan dressing change later today explained plan to pt Time Spent With Patient Time: Total time managing care of this patient today ____ minutes. Quality Stroke Does the patient have a stroke diagnosis?: No VTE Prior VTE?: No VTE Risk Level:: Medical - moderate - high VTE Device Contraindication: N/A - Device Ordered VTE Drug Contraindication: N/A - Med Ordered
--- NOTE | 2023-01-10 10:41 | MHC.CM.PN ---
Patient is not yet medically cleared for dc (Surgeon to do dressing change later today and CORY drains in place); home is the goal and CM will continue to follow.
[2023-01-10] MEDS: ondansetron HCL 4 MG/2 ML VIAL IVPUSH (11:50)
--- NOTE | 2023-01-10 15:50 | PM.EVENT ---
Event Note Date of Service: 01/10/23 Event Note: patient seen on afternoon rounds I changed her dressings no obvious hematoma CORY drains with dark serosanguineous blood tolerating ongoing confusion looks well overall plan to repeat H&H after transfusion Time Spent With Patient Time: Total time managing care of this patient today ____ minutes.
[2023-01-10 18:38] LABS: Hematocrit 23.2 % (37.0-47.0); Hemoglobin 8.2 g/dl (12.0-16.0)
[2023-01-10] MEDS: Atorvastatin Calcium 20 MG TABLET PO (21:33)
[2023-01-10] MEDS: Lactated Ringers 1,000 ML 60 ML IVCONT (23:17)
[2023-01-11 03:09] VITALS: BP 139/66; PULSE 75; RESP 20; TEMP 36.7; O2SAT 98
[2023-01-11 06:43] LABS: Hemoglobin 8.3 g/dl (12.0-16.0)
[2023-01-11 07:04] VITALS: BP 145/65; PULSE 67; RESP 18; TEMP 36; O2SAT 97
--- NOTE | 2023-01-11 07:42 | P.PNGS_ITS ---
Subjective Subjective Date of Service: 01/11/23 Interval history: Had some nausea this morning but improved. Some mild incisional pain. Physical Exam 2 Vital Signs: Vital Signs: Last Vital Signs Temp 96.8 F 01/11/23 07:04 Pulse 67 01/11/23 07:04 Resp 18 01/11/23 07:04 BP 145/65 H 01/11/23 07:04 Pulse Ox 97 01/11/23 07:04 O2 Del Method Room Air 01/11/23 07:04 O2 Flow Rate 2 01/08/23 23:12 BMI result Body Mass Index 39.5 Const: General: comfortable, no acute distress and alert O rientation/consciousness: patient oriented x3 Chest: Other: left mastectomy site with surrounding ecchymosis, no erythema, no drainage CORY drains with old bloody drainage Resp: Effort & Inspection: normal respiratory effort Skin: General skin exam: no rashes or lesions noted Neuro: General: patient oriented x3 and moves all extremities Objective Data Active Medications Acetaminophen (Acetaminophen 325 Mg Tablet) 650 mg PO Q8H PRN PRN Reason: Pain, Moderate(Pain Scale 4-6) Last Admin: 01/10/23 23:16 Dose: 650 mg Documented By: CYNTHIA Aspirin (Aspirin Enteric Coated 81 Mg Tablet.) 81 mg PO DAILY [facility] Last Admin: 01/10/23 08:07 Dose: 81 mg Documented By: GURPREET Atenolol (Atenolol 50 Mg Tablet) 50 mg PO BID [facility]; Protocol Last Admin: 01/10/23 21:33 Dose: 50 mg Documented By: CYNTHIA Atorvastatin Calcium (Atorvastatin Calcium 20 Mg Tablet) 20 mg PO BEDTIME [facility] Last Admin: 01/10/23 21:33 Dose: 20 mg Documented By: CYNTHIA Calcium Carbonate (Calcium Carbonate 500 Mg Tablet) 1,000 mg PO DAILY [facility] Last Admin: 01/10/23 08:09 Dose: 1,000 mg Documented By: GURPREET Fentanyl (Fentanyl Citrate/Pf 100 Mcg/2 Ml Vial) 25 mcg IVPUSH Q5M PRN; Protocol PRN Reason: Pain, Moderate(Pain Scale 4-6) Fentanyl (Fentanyl Citrate/Pf 100 Mcg/2 Ml Vial) 50 mcg IVPUSH Q5M PRN; Protocol PRN Reason: Pain, Severe (Pain Scale 7-10) Hydrochlorothiazide (Hydrochlorothiazide 25 Mg Tablet) 25 mg PO DAILY [facility] Last Admin: 01/10/23 08:09 Dose: 25 mg Documented By: GURPREET Hydromorphone HCl (Hydromorphone Hcl 0.5 Mg/0.5 Ml Syringe) 0.25 mg IVPUSH Q5M PRN; Protocol PRN Reason: Pain, Severe (Pain Scale 7-10) Hydromorphone HCl (Hydromorphone Hcl 0.5 Mg/0.5 Ml Syringe) 0.5 mg IVPUSH Q5M PRN; Protocol PRN Reason: Pain, Severe (Pain Scale 7-10) Lactated Ringer's (Lr) 1,000 mls @ 60 mls/hr IVCONT .[id number] [facility] Last Admin: 01/10/23 23:17 Dose: 60 mls/hr Documented By: CYNTHIA Morphine Sulfate (Morphine Sulfate 4 Mg/Ml Cartridge) 3 mg IVPUSH Q4H PRN; Protocol PRN Reason: Pain, Severe (Pain Scale 7-10) Ondansetron HCl (Ondansetron Hcl 4 Mg/2 Ml Vial) 4 mg IVPUSH Q6H PRN PRN Reason: Nausea and Vomiting Last Admin: 01/10/23 11:50 Dose: 4 mg Documented By: GURPREET Oxycodone HCl (Oxycodone Hcl Immed Release 5 Mg Tablet) 10 mg PO Q4H PRN PRN Reason: Pain, Moderate(Pain Scale 4-6) Sodium Chloride (0.9 % Sodium Chloride Flush 3 Ml Syringe) 3 ml IVFLUSH QSHIFT [facility] Last Admin: 01/10/23 21:33 Dose: 3 ml Documented By: CYNTHIA Valsartan (Valsartan 160 Mg Tablet) 160 mg PO DAILY [facility] Last Admin: 01/10/23 08:09 Dose: 160 mg Documented By: GURPREET Labs 01/11/23 05:53 01/08/23 20:05 Labs: Laboratory Results - last 24 hr 01/08/23 01/11/23 07:14 05:53 Hold Green Top See Note Blood Type B Negative Antibody Screen NEGATIVE Crossmatch See Detail Procedures Date of Service Date of Service: 01/11/23 Progress Note: A&P Assessment and plan (1) Hematoma: Status: Acute (2) Syncope: Status: Acute (3) Invasive ductal carcinoma of breast: Status: Acute (4) S/P left mastectomy: Status: Acute Plan 77 year old female POD #3 s/p left simple mastectomy with left axillary sentinel lymph node biopsy requiring evacuation of hematoma, control of 1 small bleeding vessel on the superior and medial aspect of the chest wall with ligation. H/H improved after transfusion yesterday and remains stable. CORY drain output downtrending and is old blood. Incision clean with surrounding ecchymosis. Will reassess for possible discharge to home later today [facility] services if remains stable. Time Spent With Patient Time: Total time managing care of this patient today ____ minutes. Quality Stroke Does the patient have a stroke diagnosis?: No VTE Prior VTE?: No VTE Risk Level:: Medical - moderate - high VTE Device Contraindication: N/A - Device Ordered VTE Drug Contraindication: N/A - Med Ordered
[2023-01-11] MEDS: 0.9 % Sodium Chloride Flush 3 ML SYRINGE IVFLUSH (09:20)
[2023-01-11] MEDS: hydroCHLOROthiazide 25 MG TABLET PO (09:20)
[2023-01-11] MEDS: Valsartan 160 MG TABLET PO (09:20)
[2023-01-11] MEDS: Aspirin Enteric Coated 81 MG TABLET.DR PO (09:20)
[2023-01-11] MEDS: atenoloL 50 MG TABLET PO (09:20)
--- NOTE | 2023-01-11 09:48 | P.F2F_ITS ---
Service Date Service Date: 01/11/23 Encounter Date of encounter: 01/11/23 Reasons for Services Signs and symptoms assessed: Status post mastectomy and sentinel biopsy for invasive ductal cancer Status post evacuation of postop hematoma and control of bleeder Has drains in place x3 Reason for halfway: wound care and postoperative assessment and/or care Homebound: Leaving the home is medically contraindicated at this time without the asist of a device and/or another person due th the listed conditions above and below. Reason homebound: weakness related to hospital stay and other (Recent postop mastectomy) Certification: Based on the above findings, I certify that this patient is confined to the home and needs intermittent halfway care, physical therapy and/or speech therapy, or continues to need occupational therapy. The patient is under my care, and I have initiated the establishment of the plan of care. The patient will be followed by a physician who will periodically review the plan of care. Time Spent With Patient Time: Total time managing care of this patient today _30___ minutes.
--- NOTE | 2023-01-11 09:54 | MHC.CM.PN ---
Pt is medically cleared for discharge, she is going home via her family, [facility] will provide home care services, they have been notified of d/c.
--- NOTE | 2023-01-11 16:06 | PM.DS ---
DS: Providers Provider Date of Service: 01/11/23 Primary care physician: Dorene Martinez MD Consults: 01/08/23 22:48 Consult to Hospitalist Routine Comment: Consulting Provider: Hospitalist Reason For Exam: DM, postop hematoma after mastectomy, HTN DS: Diagnosis Discharge Diagnosis (1) Hematoma: Status: Resolved (2) Syncope: Status: Resolved (3) Invasive ductal carcinoma of breast: Status: Acute (4) S/P left mastectomy: Status: Resolved DS: Summary Hospital Course Hospital Course: 77-year-old female admitted for mastectomy on the left breast and sentinel biopsy on January 08, 2023. She actually tolerated the procedure well on that day. However, later that night, she developed hypotension and was noted to have a hematoma on the left chest mastectomy site. Was brought back to the operating room for evacuation of the hematoma and control the 1 bleeder. She had [address] after that. She was transfused 1 unit that night. She was transfused a 2nd unit yesterday as her hemoglobin dropped to 7.3. Hemoglobin has been stable at 8.2 and 8.3 since then. She has had no significant recurrence of the hematoma. She feels well overall. She denies any other significant complaints. She was sent home with the drains in place. I will see her in the office next week to check on these drains. Time Spent with Patient Time attestation: Total time managing care of this patient today ____ minutes. Discharge coordination time: Less than 30 minutes Quality: Safe Use of Opioids Does Pt have an Active Cancer Diagnosis on the Problem List?: Yes Opioid Measure Date for [facility] Report: 12/18/22 Opioid Measure Time for [facility] Report: 15:27 Quality: Stroke Does the patient have a stroke diagnosis?: No Physical Exam Vital Signs: Vital Signs: Last Vital Signs Temp 96.8 F 01/11/23 07:04 Pulse 67 01/11/23 07:04 Resp 18 01/11/23 07:04 BP 145/65 H 01/11/23 07:04 Pulse Ox 97 01/11/23 07:04 O2 Del Method Room Air 01/11/23 07:04 O2 Flow Rate 2 01/08/23 23:12 BMI result Body Mass Index 39.5 Const: General: comfortable and no acute distress Chest: Other: Mastectomy site on the left, with emre in place, cellulitis, no discharge, [address], coming out through the inferior flap laterally Resp: Effort & Inspection: normal respiratory effort Cardio: Rate: regular rate GI: Palpation (GI): Soft to palpation and not firm DS: Data Data Completed and Pending Completed studies during hospitalization [Text1]: Laboratory Results WBC 5.4 X10*3/uL (4.8-10.8) 01/10/23 06:17 RBC 2.46 X10*6/uL (4.20-5.50) L D 01/10/23 06:17 Hgb 8.3 g/dl (12.0-16.0) L 01/11/23 05:53 Hct 24.0 % (37.0-47.0) L 01/11/23 05:53 MCV 85.8 fL (80.0-98.0) 01/10/23 06:17 MCH 29.7 pg (27.0-33.0) 01/10/23 06:17 MCHC 34.6 g/dl (31.0-35.0) 01/10/23 06:17 RDW 13.0 % (11.0-16.0) 01/10/23 06:17 Plt Count 148 X10*3/uL (160-400) L D 01/10/23 06:17 MPV 9.5 fL (9.4-12.3) 01/10/23 06:17 Immature Gran % (Auto) 0.3 % (0.0-0.4) 01/08/23 20:05 Neut % (Auto) 69.3 % (45-73) 01/08/23 20:05 Lymph % (Auto) 20.7 % (20-40) 01/08/23 20:05 Josephine % (Auto) 9.3 % (2-11) 01/08/23 20:05 Eos % (Auto) 0.2 % (0-4) 01/08/23 20:05 Baso % (Auto) 0.2 % (0-2) 01/08/23 20:05 Lymph # (Auto) 3.5 X10*3/uL (1.2-4.9) 01/08/23 20:05 Josephine # (Auto) 1.6 X10*3/uL (0.1-1.2) H 01/08/23 20:05 Eos # (Auto) 0.0 X10*3/uL (0.0-0.4) 01/08/23 20:05 Baso # (Auto) 0.0 X10*3/uL (0.0-0.2) 01/08/23 20:05 Abs Immat Gran (auto) 0.05 X10*3/uL (0.00-0.03) H 01/08/23 20:05 Absolute Neuts (auto) 11.7 x10*3/uL (2.0-8.3) H 01/08/23 20:05 Absolute Nucleated RBC 0.000 X10*3/uL (0.0-0.012) 01/10/23 06:17 Nucleated RBC % (auto) 0.0 /100WBC (0.0-0.2) 01/10/23 06:17 Smear Tech's Comments VERIFIED 01/08/23 20:05 Sodium 135 mmol/L (135-145) 01/08/23 20:05 Potassium 4.3 mmol/L (3.3-5.1) 01/08/23 20:05 Chloride 101 mmol/L (96-108) 01/08/23 20:05 Carbon Dioxide 22 mmol/L (22-29) 01/08/23 20:05 Anion Gap 16 (12-20) 01/08/23 20:05 BUN 17 mg/dL (9-16) H 01/08/23 20:05 Creatinine 0.88 mg/dL (0.5-1.4) 01/08/23 20:05 Estim Creat Clear Calc 64.9 01/08/23 20:05 Estimated GFR > 60 01/08/23 20:05 Random Glucose 218 mg/dL (60-115) H 01/08/23 20:05 Calcium 9.0 mg/dL (8.4-10.2) D 01/08/23 20:05 Troponin I High Sens < 2.7 ng/L (<3.5-17.0) 01/08/23 20:05 B-Natriuretic Peptide 72 pg/mL (<100) 01/08/23 20:05 Hold Green Top See Note 01/11/23 05:53 Blood Type B Negative 01/08/23 07:14 Antibody Screen NEGATIVE 01/08/23 07:14 Crossmatch See Detail 01/08/23 07:14 Impressions [facility] Nuclear Med 01/08/23 08:55 IMPRESSION: Small sentinel nodes seen in the left anterior axilla with a dominant node seen initially. There is solitary activity seen in the retroareolar lymph node and soft tissue breast parenchyma laterally. Pending studies at discharge: Pending at discharge 01/08/23 13:24 Surgical [PTH] Routine Labs on day of discharge: Laboratory Results - last 24 hr 01/10/23 01/11/23 17:54 05:53 Hgb 8.2 L 8.3 L Hct 23.2 L 24.0 L Hold Green Top See Note Discharge Plan Discharge Patient Disposition: Home Health Service Referrals: Jitendra ONEILL [Outside] - 1 Week Abner Lee MD [Physician] - 1 Week Discharge Medications: New oxycodone-acetaminophen [Percocet] 5-325 mg tablet 1 tab PO Q4-6H PRN (Reason: pain) Qty: 20 0RF Rx Instructions: Partial Fill upon patient request. ondansetron 4 mg tablet,disintegrating 4 mg PO TID PRN (Reason: nausea and vomiting) 4 Days Qty: 10 0RF Continued atenolol 50 mg tablet 50 mg PO BID Qty: 180 1RF valsartan-hydrochlorothiazide 160-25 mg tablet 1 tab PO DAILY Qty: 90 1RF simvastatin 40 mg tablet 40 mg PO BEDTIME Qty: 90 1RF omega-3 fatty acids [Fish Oil Concentrate] 1,000 mg capsule 1,000 mg PO BID calcium carbonate 390 mg calcium (1,000 mg) tablet 390 mg PO DAILY cholecalciferol (vitamin D3) 25 mcg (1,000 unit) capsule 25 mcg PO DAILY Held aspirin [Adult Low Dose Aspirin] 81 mg tablet,delayed release (DR/EC) 81 mg PO DAILY Hold Instructions: Resume on 01/18/23. Discharge Orders: Discharge Order (Routine); Ordered 01/11/23 Ordered By: Abner Lee Diet: Advance to usual diet Activity on Discharge: No heavy lifting Patient Instructions: Mastectomy (DC) Activity Restrictions/Additional Instructions: Empty drains twice a day and record output Dry dressings to the mastectomy site daily If the incision area is tender, you may apply an ice pack for short intervals (No more than 20 minutes on, followed by at least 20 minutes off). Do not apply heat. Do not use creams, lotions, or topical antibiotics unless instructed to do so by your surgeon. These can cause infection or allergic reaction. No lifting more than 20 lbs Okay to shower Okay to change dressings with gauze No strenuous activities Call the office for follow-up in 1 week - with Dr. Lee Call Your Doctor If: -Your temperature exceeds 101.5? F -You experience excessive pain or swelling -You have an unexpected reaction to medication -You have excessive bleeding -You experience continued vomiting/nausea -Your incision begins to separate -Your incision shows signs of infection such as increased redness, swelling, excessive pain, drainage (light blood or clear fluid is normal) or heat Discharge Date/Time: 01/11/23 11:53
== END 2023-01-11 11:53 | disposition home health service (06) ==
LOC: HO.SSS 14:21 → HO.S3 14:35 → HO.IMC 19:59
PROVIDERS: Physician Assistant; Physician Assistant Surgical; PCP Internal Medicine; Visit Provider Surgery
PROC: (CPT 19303; principal; 2023-01-08 11:00)
PROC: (CPT 19303; 2023-01-08 11:00)
DX: C50.112 Malignant neoplasm of central portion of left female breast (principal); Z17.0 Estrogen receptor positive status [ER+]; L76.32 Postprocedural hematoma of skin and subcutaneous tissue following other procedure; Y83.8 Other surgical procedures as the cause of abnormal reaction of the patient, or of later complication, without mention of misadventure at the time of the procedure; Y82.8 Other medical devices associated with adverse incidents; Y92.239 Unspecified place in hospital as the place of occurrence of the external cause; R58 Hemorrhage, not elsewhere classified
CPT/HCPCS: 19303; 38525; 21501; 37799; 36415; 78195; 80048; 83880; 84484; 85014; 85018; 85025; 85027; 86850; 86900; 86901; 86923; 88305; 88307; 88341; 88342; 88360; 93005; A9520; J0131; J0330; J0690; J1885; J2371; J2405; J2795; J3010; P9016

== ENCOUNTER → 2023-01-08 14:18 | Outpatient (BNV) | payer MEDICARE, SELFPAY | PROVIDERS: PCP Internal Medicine; Visit Provider Surgery | DX: T14.8XXA Other injury of unspecified body region, initial encounter (principal); R55 Syncope and collapse; C50.912 Malignant neoplasm of unspecified site of left female breast; Z90.12 Acquired absence of left breast and nipple | CPT/HCPCS: 19307; 21501; 38900; 99024; 99499; G0180 ==

== ENCOUNTER → 2023-01-08 14:18 | Outpatient (BNV) | payer MEDICARE, SELFPAY | PROVIDERS: PCP Internal Medicine; Visit Provider Physician Assistant | DX: C50.912 Malignant neoplasm of unspecified site of left female breast (principal); R55 Syncope and collapse | CPT/HCPCS: 99233; 99499 ==

== ENCOUNTER 2023-01-18 08:26 | Outpatient (AMB) | payer MEDICARE, SELFPAY ==
--- NOTE | 2023-01-18 08:27 | MHC.OFFVIS ---
Intake Vital Signs 01/18/23 08:35 Weight 215 lb BP 135/62 Blood Pressure Location Rt brachial Position Sitting Pulse 80 Intake Visit Reasons: s/p Lt breast mastectomy Intake Note: This patient presents for a post-op follow-up assessment status post left breast mastectomy. Patient c/0; reports was experincing sharp stabbing pain surgical site but has diminished. Operator Maintainer Required: No Accompanied by: Self / Same As Patient Allergies amlodipine Allergy (Unknown, Verified 01/18/23 08:35) told to avoid lisinopril [LISINOPRIL] Adverse Reaction (Intermediate, Verified 01/18/23 08:35) TACHYCARDIA moxifloxacin [From VIGAMOX] Adverse Reaction (Intermediate, Verified 01/18/23 08:35) increased eye irritation BANDAIDS Allergy (Mild, Uncoded 01/18/23 08:35) RASH HPI s/p Lt breast mastectomy HPI Details She had undergone left breast mastectomy and sentinel node biopsy last January 08, 2023. She tolerated procedure well but had to be brought back to the OR later that night because of development of a large hematoma. She underwent evacuation of a hematoma with control of 1 bleeding vessel. She had additional drain in place. She was transfused a total of 2 units of packed RBCs during her admission and she was discharged on January 11, 2023. She has had no significant complaints at home. Dressing changes are being done by a visiting nurse. She says she feels well overall. [facility] Medical History Hematoma Invasive ductal carcinoma of left breast, stage 1 Type 2 diabetes mellitus without complication, without long-term current use of insulin Menopause Dyslipidemia Essential hypertension Surgical History H/O left breast biopsy History of colonoscopy History of tonsillectomy Family History Mother Breast cancer Brother No problems noted. Son No problems noted. Daughter No problems noted. Other Mental health disorder Social History Household Members: Friend(s) Housing: Condominium Are you a primary laboratory animal caretaker to a significant other at home: No Do you presently have visiting nurse or other home services: No Alcohol intake: never Patient Tobacco Use Status: Never used Tobacco e-Cigarette/Vaping Use: Never Used Second Hand Smoke Exposure: No (as a child ) service: No Current occupational status: retired Cognitive needs: No Hearing needs: No Vision needs: Yes Female Reproductive History Menstrual Age of Menarche: 12 Review of Systems Const Denies chills and Denies fever(s) Card Denies chest pain, Denies dyspnea and Denies dyspnea on exertion Resp Denies cough, Denies dyspnea and Denies dyspnea on exertion GI Denies hematochezia and Denies change in bowel habits Denies hematuria Musc Denies back pain and Denies limited range of motion Neuro Denies focal weakness and Denies convulsions Psych Denies depression and Denies mood swings Physical Exam Vital Signs: Last Vital Signs Pulse 80 01/18/23 08:35 BP 135/62 01/18/23 08:35 Const General: comfortable and no acute distress Chest Other: [address], with CORY drain 2 and 3 with about 10 cc output recorded every day; the other drain on the inferior flap has about 20-40 cc of output every day The incision is generally clean and dry but there is note of some official flap necrosis on the medial inferior aspect; there was note of some edema of the lateral area of the mastectomy site Resp Effort & Inspection: normal respiratory effort Assessment & Plan Assessment & Plan (1) Invasive ductal carcinoma of breast: Code(s): C50.919 - Malignant neoplasm of unspecified site of unspecified female breast Qualifiers: Laterality: left Qualified Code(s): C50.912 - Malignant neoplasm of unspecified site of left female breast Plan: Status post mastectomy, left breast with sentinel node biopsy. Path report confirms an invasive ductal carcinoma in the upper central breast at the area of the biopsy site. 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 Margins appear to be negative The sentinel node is negative as well. I remove CORY drain 2. I will see her again next week in the office to likely remove the rest of her CORY drains and her skin emre She is doing well. He was reminded on good wound care. She has been says scheduled to see the oncologist later this month. Coding Level of Care Code Est Pt Level 3 (65389) Global (94449) Diagnoses Infiltrating ductal carcinoma of left breast C50.912 Laterality: left
[2023-01-18 08:35] VITALS: BP 135/62; PULSE 80
== END 2023-01-18 08:50 | disposition home or self-care (01) ==
PROVIDERS: PCP Internal Medicine; Visit Provider Surgery
DX: C50.912 Malignant neoplasm of unspecified site of left female breast (principal)
CPT/HCPCS: 99024

== ENCOUNTER → 2023-01-18 08:26 | Outpatient (BNVA) | payer MEDICARE, SELFPAY | PROVIDERS: PCP Internal Medicine; Visit Provider Surgery ==

== ENCOUNTER 2023-01-24 09:34 | Outpatient (AMB) | payer MEDICARE, SELFPAY ==
--- NOTE | 2023-01-24 09:45 | MHC.OFFVIS ---
Intake Vital Signs 01/24/23 09:53 Weight 213 lb Intake Visit Reasons: S/P Lt breast mastectomy Intake Note: This patient presents for a post-op follow-up assessment status post left breast mastectomy. Patient c/o; reports foul odor. Back Facer Required: No Accompanied by: Self / Same As Patient Allergies amlodipine Allergy (Unknown, Verified 01/24/23 09:54) told to avoid lisinopril [LISINOPRIL] Adverse Reaction (Intermediate, Verified 01/24/23 09:54) TACHYCARDIA moxifloxacin [From VIGAMOX] Adverse Reaction (Intermediate, Verified 01/24/23 09:54) increased eye irritation BANDAIDS Allergy (Mild, Uncoded 01/24/23 09:54) RASH HPI S/P Lt breast mastectomy HPI Details She is here for postop visit after mastectomy on the left with sentinel biopsy. She also had to return to the OR for evacuation of a hematoma later that night She denies any new pain or tenderness. She states that she has not been taking pain medications. She does state that there seems to be some foul odor from the medial aspect of the incision. She denies any fever or chills. [facility] Medical History Hematoma Invasive ductal carcinoma of left breast, stage 1 Type 2 diabetes mellitus without complication, without long-term current use of insulin Menopause Dyslipidemia Essential hypertension Surgical History H/O left breast biopsy History of colonoscopy History of tonsillectomy Family History Mother Breast cancer Brother No problems noted. Son No problems noted. Daughter No problems noted. Other Mental health disorder Social History Household Members: Friend(s) Housing: Condominium Are you a primary acute care nursing assistant to a significant other at home: No Do you presently have visiting nurse or other home services: No Alcohol intake: never Patient Tobacco Use Status: Never used Tobacco e-Cigarette/Vaping Use: Never Used Second Hand Smoke Exposure: No (as a child ) service: No Current occupational status: retired Cognitive needs: No Hearing needs: No Vision needs: Yes Female Reproductive History Menstrual Age of Menarche: 12 Review of Systems Const Denies chills and Denies fever(s) Card Denies chest pain, Denies dyspnea and Denies dyspnea on exertion Resp Denies cough, Denies dyspnea and Denies dyspnea on exertion GI Denies hematochezia and Denies change in bowel habits Denies hematuria Musc Denies back pain and Denies limited range of motion Neuro Denies focal weakness and Denies convulsions Psych Denies depression and Denies mood swings Physical Exam Const General: comfortable and no acute distress Chest Other: Mastectomy site and left generally healing well but with note of some superficial flap necrosis on the medial aspect, with some scanty drainage. Both CORY drains have had very scanty clear output. There is note of some mild induration on the lateral aspect of the mastectomy site suggestive of a hematoma. She has large amounts of axillary fat laterally. Resp Effort & Inspection: normal respiratory effort Assessment & Plan Assessment & Plan (1) Invasive ductal carcinoma of left breast, stage 1: Code(s): C50.912 - Malignant neoplasm of unspecified site of left female breast Plan: Status post mastectomy and sentinel biopsy. She has a T1 N0 invasive ductal carcinoma. Moved all her skin emre. She has some flap necrosis on the medial aspect along the incision. I sharply debrided this with fine scissors. I covered this with dry gauze. I removed both her CORY drains I instructed her on doing good wound care for the debrided area. I expect this to re granulate and re- epithelialize. I also have instructed her on doing hot compresses to the lateral aspect as there may be a hematoma. These she does have a lot a residual axillary fat in this area as well and she had a very large breast removed. I will see her again in the office next week for another wound check. Coding Level of Care Code Global (64494) Diagnoses Invasive ductal carcinoma of left breast, stage 1 C50.912
== END 2023-01-24 10:33 | disposition home or self-care (01) ==
PROVIDERS: PCP Internal Medicine; Visit Provider Surgery
DX: C50.912 Malignant neoplasm of unspecified site of left female breast (principal)
CPT/HCPCS: 99024

== ENCOUNTER → 2023-01-24 09:34 | Outpatient (BNVA) | payer MEDICARE, SELFPAY | PROVIDERS: PCP Internal Medicine; Visit Provider Surgery ==

== ENCOUNTER 2023-02-01 10:26 | Outpatient (AMB) | payer MEDICARE, SELFPAY ==
--- NOTE | 2023-02-01 10:27 | MHC.OFFVIS ---
Intake Intake Visit Reasons: S/P Lt breast mastectomy, 1 wk follow up Intake Note: This patient presents for a one week follow-up assessment for wound check status post left breast lumpectomy. Patient c/o; reports no changes. Nursing Techn Required: No Accompanied by: Self / Same As Patient Allergies amlodipine Allergy (Unknown, Verified 02/01/23 10:34) told to avoid lisinopril [LISINOPRIL] Adverse Reaction (Intermediate, Verified 02/01/23 10:34) TACHYCARDIA moxifloxacin [From VIGAMOX] Adverse Reaction (Intermediate, Verified 02/01/23 10:34) increased eye irritation BANDAIDS Allergy (Mild, Uncoded 02/01/23 10:34) RASH HPI S/P Lt breast mastectomy, 1 wk follow up HPI Details She is here for a follow-up after mastectomy and sentinel node biopsy for left breast invasive ductal cancer . I had removed her drains on her last visit. She says that she has been feeling better. She denies significant pain. She still has an open wound on the medial aspect of the mastectomy site and this has some scanty drainage. [facility] Medical History Hematoma Invasive ductal carcinoma of left breast, stage 1 Type 2 diabetes mellitus without complication, without long-term current use of insulin Menopause Dyslipidemia Essential hypertension Surgical History H/O left breast biopsy History of colonoscopy History of tonsillectomy Family History Mother Breast cancer Brother No problems noted. Son No problems noted. Daughter No problems noted. Other Mental health disorder Social History Household Members: Friend(s) Housing: Condominium Are you a primary field care manager to a significant other at home: No Do you presently have visiting nurse or other home services: No Alcohol intake: never Patient Tobacco Use Status: Never used Tobacco e-Cigarette/Vaping Use: Never Used Second Hand Smoke Exposure: No (as a child ) service: No Current occupational status: retired Cognitive needs: No Hearing needs: No Vision needs: Yes Female Reproductive History Menstrual Age of Menarche: 12 Review of Systems Const Denies chills and Denies fever(s) Card Denies chest pain, Denies dyspnea and Denies dyspnea on exertion Resp Denies cough, Denies dyspnea and Denies dyspnea on exertion GI Denies hematochezia and Denies change in bowel habits Denies hematuria Musc Denies back pain and Denies limited range of motion Neuro Denies focal weakness and Denies convulsions Psych Denies depression and Denies mood swings Physical Exam Const General: comfortable and no acute distress Chest Other: Open wound on the medial aspect mastectomy site with some fibrinous debris, otherwise clean, some scanty drainage; the rest of the mastectomy site is well healed. She seems to have hematoma on the lateral aspect of the chest wall Assessment & Plan Assessment & Plan (1) Invasive ductal carcinoma of left breast, stage 1: Code(s): C50.912 - Malignant neoplasm of unspecified site of left female breast Plan: Status post mastectomy. She has an open wound on the medial aspect of the mastectomy site. I had debrided sharply with scissors in view of some fibrinous debris. I applied dressings. I had instructed her on daily wound care. I also instructed her to do warm compresses the lateral aspect of the chest wall. I will see her again in the office in about 2-3 weeks. Coding Level of Care Code Global (46646) Diagnoses Invasive ductal carcinoma of left breast, stage 1 C50.912
== END 2023-02-01 10:46 | disposition home or self-care (01) ==
PROVIDERS: PCP Internal Medicine; Visit Provider Surgery
DX: C50.912 Malignant neoplasm of unspecified site of left female breast (principal)
CPT/HCPCS: 99024

== ENCOUNTER → 2023-02-01 10:26 | Outpatient (BNVA) | payer MEDICARE, SELFPAY | PROVIDERS: PCP Internal Medicine; Visit Provider Surgery ==

== ENCOUNTER 2023-02-15 09:27 | Outpatient (AMB) | payer MEDICARE, SELFPAY ==
--- NOTE | 2023-02-15 09:33 | MHC.OFFVIS ---
Intake Vital Signs 02/15/23 09:40 Height 5 ft 4 in Weight 213 lb BMI 36.6 Intake Visit Reasons: wound check, S/P Lt breast mastectomy Intake Note: This patient presents for a wound check status post left breast mastectomy. Patient c/o; reports no changes at this time. Language Instructor Required: No Accompanied by: Self / Same As Patient Allergies amlodipine Allergy (Unknown, Verified 02/15/23 09:33) told to avoid lisinopril [LISINOPRIL] Adverse Reaction (Intermediate, Verified 02/15/23 09:33) TACHYCARDIA moxifloxacin [From VIGAMOX] Adverse Reaction (Intermediate, Verified 02/15/23 09:33) increased eye irritation BANDAIDS Allergy (Mild, Uncoded 02/15/23 09:33) RASH Medication List - Last Reconciled 02/15/23 by Abner Lee MD aspirin (Adult Low Dose Aspirin) 81 mg PO DAILY atenolol 50 mg PO BID calcium carbonate 390 mg PO DAILY cholecalciferol (vitamin D3) 25 mcg PO DAILY omega-3 fatty acids (Fish Oil Concentrate) 1,000 mg PO BID oxycodone-acetaminophen 5-325 mg (Percocet) 1 tab PO Q4-6H PRN simvastatin 40 mg PO BEDTIME valsartan-hydrochlorothiazide 160-25 mg 1 tab PO DAILY HPI wound check, S/P Lt breast mastectomy HPI Details She is here for a wound check after left breast mastectomy. She had an open area on the medial aspect of the mastectomy site with some drainage. She says that the is closing up and she has very minimal drainage. She feels well overall. She says she does her dressing changes herself. [facility] Medical History Hematoma Invasive ductal carcinoma of left breast, stage 1 Type 2 diabetes mellitus without complication, without long-term current use of insulin Menopause Dyslipidemia Essential hypertension Surgical History H/O left breast biopsy History of colonoscopy History of tonsillectomy Family History Mother Breast cancer Brother No problems noted. Son No problems noted. Daughter No problems noted. Other Mental health disorder Social History Household Members: Friend(s) Housing: Condominium Are you a primary lawn care professional to a significant other at home: No Do you presently have visiting nurse or other home services: No Alcohol intake: never Patient Tobacco Use Status: Never used Tobacco e-Cigarette/Vaping Use: Never Used Second Hand Smoke Exposure: No (as a child ) service: No Current occupational status: retired Cognitive needs: No Hearing needs: No Vision needs: Yes Female Reproductive History Menstrual Age of Menarche: 12 Review of Systems Const Denies chills and Denies fever(s) Card Denies chest pain, Denies dyspnea and Denies dyspnea on exertion Resp Denies cough, Denies dyspnea and Denies dyspnea on exertion GI Denies hematochezia and Denies change in bowel habits Denies hematuria Musc Denies back pain and Denies limited range of motion Neuro Denies focal weakness and Denies convulsions Psych Denies depression and Denies mood swings Physical Exam Const General: comfortable and no acute distress Chest Other: Open wound on the medial aspect of the mastectomy site is now healing well, granulation, surface area as contracted significantly, rest of the mastectomy site is well healed Assessment & Plan Assessment & Plan (1) Invasive ductal carcinoma of left breast, stage 1: Code(s): C50.912 - Malignant neoplasm of unspecified site of left female breast Plan: Status post mastectomy, sentinel node biopsy. Her residual open wound is healing nicely. This is much smaller in surface area. I changed her dressings and buys her to continue to do dry dressing changes daily. I will see her again in the office in about a month for another wound check She is to follow-up with Dr. Hermosillo for hormonal treatment. Coding Level of Care Code Global (96869) Diagnoses Invasive ductal carcinoma of left breast, stage 1 C50.912
[2023-02-15 09:40] VITALS: BMI 36.6
== END 2023-02-15 10:02 | disposition home or self-care (01) ==
PROVIDERS: PCP Internal Medicine; Visit Provider Surgery
DX: C50.912 Malignant neoplasm of unspecified site of left female breast (principal)
CPT/HCPCS: 99024

== ENCOUNTER → 2023-02-15 09:27 | Outpatient (BNVA) | payer MEDICARE, SELFPAY | PROVIDERS: PCP Internal Medicine; Visit Provider Surgery ==

== ENCOUNTER 2023-03-15 09:34 | Outpatient (AMB) | payer MEDICARE, SELFPAY ==
--- NOTE | 2023-03-15 09:35 | A.OFFVIS_ITS ---
Intake Vital Signs 03/15/23 09:41 Height 5 ft 4 in Weight 218 lb BMI 37.4 Intake Visit Reasons: S/P Lt breast mastectomy, wound check Intake Note: This patient presents for a one month follow-up assessment for wound check. Patient c/o; reports no changes or complaints at this time. 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 She says that her wound has healed completely. She denies any significant complaints She started on hormonal therapy as well. [facility] Medical History Hematoma Invasive ductal carcinoma of left breast, stage 1 Type 2 diabetes mellitus without complication, without long-term current use of insulin Menopause Dyslipidemia Essential hypertension Surgical History H/O left breast biopsy History of colonoscopy History of tonsillectomy Family History Mother Breast cancer Brother No problems noted. Son No problems noted. Daughter No problems noted. Other Mental health disorder Social History Household Members: Friend(s) Housing: Condominium Are you a primary lawn care professional to a significant other at home: No Do you presently have visiting nurse or other home services: No Alcohol intake: never Patient Tobacco Use Status: Never used Tobacco e-Cigarette/Vaping Use: Never Used Second Hand Smoke Exposure: No (as a child ) service: No Current occupational status: retired Cognitive needs: No Hearing needs: No Vision needs: Yes Female Reproductive History Menstrual Age of Menarche: 12 Review of Systems Const Denies chills and Denies fever(s) Card Denies chest pain, Denies dyspnea and Denies dyspnea on exertion Resp Denies cough, Denies dyspnea and Denies dyspnea on exertion GI Denies hematochezia and Denies change in bowel habits Denies hematuria Musc Denies back pain and Denies limited range of motion Neuro Denies focal weakness and Denies convulsions Psych Denies depression and Denies mood swings Physical Exam Vital Signs: BMI result Body Mass Index 37.4 Const General: comfortable and no acute distress Chest Other: Mastectomy site is completely healed, no palpable masses Assessment & Plan Assessment & Plan (1) Invasive ductal carcinoma of left breast, stage 1: Code(s): C50.912 - Malignant neoplasm of unspecified site of left female breast Plan: Status post mastectomy, sentinel biopsy Her mastectomy site is completely healed now. I reminded her to continue with regular screening mammograms for the contralateral breast I will see her again for another exam in about 6 months here in the office. She is seeing Dr. Hermosillo regularly and is hormonal therapy. Coding Level of Care Code Global (67575) Diagnoses Invasive ductal carcinoma of left breast, stage 1 C50.912
[2023-03-15 09:41] VITALS: BMI 37.4
== END 2023-03-15 10:10 | disposition home or self-care (01) ==
PROVIDERS: PCP Internal Medicine; Visit Provider Surgery
DX: C50.912 Malignant neoplasm of unspecified site of left female breast (principal)
CPT/HCPCS: 99024

== ENCOUNTER → 2023-03-15 09:34 | Outpatient (BNVA) | payer MEDICARE, SELFPAY | PROVIDERS: PCP Internal Medicine; Visit Provider Surgery ==

== ENCOUNTER 2023-04-02 08:30 | Outpatient (REF) | payer MEDICARE, SELFPAY ==
[2023-04-02 11:53] LABS: Estimated Average Glucose 146 mg/dL; Hemoglobin A1c % 6.7 % (<6.0)
[2023-04-02 12:24] LABS: Alanine Aminotransferase 12 U/L (0-31); Anion Gap 13 (12-20); Aspartate Amino Transferase 18 U/L (5-31); Blood Urea Nitrogen 16 mg/dL (9-16); Carbon Dioxide 29 mmol/L (22-29); Chloride 100 mmol/L (96-108); Cholesterol 166 mg/dL (<200); Estimated Glomerular Filt Rate > 60; Glucose Fasting 145 mg/dL (60-99); HDL Cholesterol 38 mg/dL (>40); LDL Cholesterol Calculated 91 mg/dL (<100); Potassium 4.3 mmol/L (3.3-5.1); Sodium 138 mmol/L (135-145); Triglycerides 188 mg/dL (<150)
[2023-04-02 12:29] LABS: Vitamin D 25-OH Total 34.5 ng/mL (>30)
== END 2023-04-02 08:31 | disposition home or self-care (01) ==
LOC: HO.HMGCLDS 08:30
PROVIDERS: PCP Internal Medicine; Visit Provider Internal Medicine
DX: E11.9 Type 2 diabetes mellitus without complications (principal); I10 Essential (primary) hypertension; E78.5 Hyperlipidemia, unspecified; E55.9 Vitamin D deficiency, unspecified; Z78.0 Asymptomatic menopausal state
CPT/HCPCS: 36415; 80048; 80061; 82306; 83036; 84450; 84460

== ENCOUNTER 2023-04-03 09:45 | Outpatient (AMB) | payer MEDICARE, SELFPAY ==
--- NOTE | 2023-04-03 10:00 | A.OFFPC_ITS ---
Vital Signs 04/03/23 10:01 Height 5 ft 4 in Weight 214 lb 4 oz BMI 36.8 BP 146/84 H Blood Pressure Location Rt brachial Position Sitting Pulse 66 Pulse Source Pulse Oximeter Pulse Oximetry (%) 97 Oxygen Delivery Method Room Air Intake Visit Reasons: 3 month fu Intake Note: pt is here to follow up for lab results Allergies amlodipine Allergy (Unknown, Verified 04/03/23 10:42) told to avoid lisinopril [LISINOPRIL] Adverse Reaction (Intermediate, Verified 04/03/23 10:42) TACHYCARDIA moxifloxacin [From VIGAMOX] Adverse Reaction (Intermediate, Verified 04/03/23 10:42) increased eye irritation BANDAIDS Allergy (Mild, Uncoded 04/03/23 10:42) RASH Medication List - Last Reconciled 04/03/23 by Dorene Martinez MD anastrozole 1 mg PO DAILY aspirin (Adult Low Dose Aspirin) 81 mg PO DAILY atenolol 50 mg PO BID calcium carbonate 390 mg PO DAILY cholecalciferol (vitamin D3) 25 mcg PO DAILY omega-3 fatty acids (Fish Oil Concentrate) 1,000 mg PO BID simvastatin 40 mg PO BEDTIME valsartan-hydrochlorothiazide 160-25 mg 1 tab PO DAILY Tobacco use date assessed: 04/03/23 Fall risk assessment: No Falls in past year Last assessed Fall Risk: 04/03/23 Dental Screening Dental Screen Date: 04/03/23 Did you have a dental visit in the last 12 months?: Yes Did you have a dental problem in the last 6 months where you did not have access to dental care?: No Was dental information given to patient?: Patient has dentist HPI 3 month fu HPI Details 78-year-old lady here today for follow-u p on her diabetes mellitus, hypertension and dyslipidemia. She has been compliant with taking her medications, has been following recommended diet, and tries to stay active, walks a lot for exercise. Recently underwent left mastectomy for invasive ductal carcinoma stage I left breast, with sentinel node biopsy, genetic testing came back negative, and was started on Arimidex by Dr. Hermosillo. She is in good spirits, with no new complaints at present time. [facility] Medical History (Updated 05/10/23 @ 16:02 by Dorene Martinez MD) History of invasive ductal carcinoma of breast Hematoma Invasive ductal carcinoma of left breast, stage 1 Type 2 diabetes mellitus without complication, without long-term current use of insulin Menopause Dyslipidemia Essential hypertension Surgical History H/O left breast biopsy History of colonoscopy History of tonsillectomy Family History Mother Breast cancer Brother No problems noted. Son No problems noted. Daughter No problems noted. Other Mental health disorder Social History Household Members: Friend(s) Housing: Condominium Are you a primary health care coach to a significant other at home: No Do you presently have visiting nurse or other home services: No Alcohol intake: never Patient Tobacco Use Status: Never used Tobacco e-Cigarette/Vaping Use: Never Used Second Hand Smoke Exposure: No (as a child ) service: No Current occupational status: retired Cognitive needs: No Hearing needs: No Vision needs: Yes Female Reproductive History Menstrual Age of Menarche: 12 Questionnaire PHQ-9 Over the last 2 weeks, how often have you been bothered by any of the following problems? Depression Screening Interpretation: Negative Depression Screening Done: Yes Source: Developed by Drs. Mahendra Astudillo, Ernie Mg and colleagues, with an educational penny from [employer]. Thrive Questionnaire Date Thrive assessed: 01/09/23 DRISS-7 AMB Questionnaire DRISS-7 Date DRISS - 7 assessed: 06/22/22 Source: Developed by Leti Martin Kurt Kroenke and colleagues, with an educational penny from [employer]. Review of Systems Const Denies chills, Denies fever(s), Denies headache(s), Denies lethargy, Denies malaise and Denies weakness Eyes Reports no additional complaints ENT Denies dizziness and Denies headache(s) Card Denies chest pain, Denies dyspnea and Denies dyspnea on exertion Resp Denies cough, Denies dyspnea and Denies dyspnea on exertion GI Denies abdominal pain, Denies bloating, Denies hematochezia, Denies change in bowel habits and Denies heartburn Denies hematuria Musc Denies back pain and Denies limited range of motion Skin/Breast Details: Healed left mastectomy scar Neuro Denies dizziness, Denies headache(s), Denies focal weakness, Denies convulsions, Denies paresthesias and Denies weakness Psych Denies depression and Denies mood swings Endo Reports no additional complaints Vitaliy/Lymph Reports no additional complaints Physical exam (Primary Care) Vital Signs: Last Vital Signs Pulse 66 04/03/23 10:01 BP 146/84 H 04/03/23 10:01 Pulse Ox 97 04/03/23 10:01 Oxygen Delivery Method Room Air 04/03/23 10:01 BMI result Body Mass Index 36.8 Tobacco/Smoking Status: Tobacco use Status Tobacco use date assessed 04/03/23 04/03/23 10:04 Patient Tobacco Use Status Never used Tobacco 04/03/23 10:00 e-Cigarette/Vaping Use Never Used 04/03/23 10:00 Depression Screening Interpretation: Negative Thrive Assessment: Date of Thrive Assessment Date Thrive assessed 01/09/23 04/03/23 10:00 Const General: cooperative, comfortable and no acute distress Orientation/consciousness: patient oriented x3 HENMT Ears: hearing grossly normal bilaterally and external ears normal General nose exam: Normal external nose present Mouth: Normal oral and palatal mucosa present, oropharynx normal and moist mucous membranes Eyes General: appearance normal, both eyes and all related structures Conjunctivae: conjunctivae normal Pupils: Equal, round and reactive pupils present EOM: EOMs intact bilaterally Neck Neck: Yes full ROM, Yes no lymphadenopathy and Yes supple Chest Other: Mastectomy scar on left Resp Effort & Inspection: normal respiratory effort and able to speak in complete sentences Auscultation: clear to auscultation bilaterally Cardio Rate: regular rate Rhythm: regular rhythm Heart sounds: S1 normal heart sound present and S2 normal heart sound present GI Inspection: Yes normal to inspection Palpation (GI): Soft to palpation, nontender and no masses Auscultation: normal bowel sounds Neuro General: patient oriented x3, gait normal, tone normal, moves all extremities, Normal light touch and pain sensation and no focal motor deficits Cranial nerves: Yes Equal, round and reactive pupils present Cognition (Neuro): normal cognition Gait exam (Neuro): Normal gait present Motor exam (neuro): 5/5 motor strength present throughout Extrem General: Yes full ROM, Yes no joint enlargement, Yes no pedal edema and Yes normal gait Psych Appearance: grossly normal Mental Status: mental status grossly normal Speech and movement: Normal speech and movement present Affect: normal affect Attitude: cooperative Thought process: Normal thought process present Results Reviewed Results Reviewed: v Name: Vashti yCr Age/Sex: 78/F : 1945 Unit#: [id number] Attend Dr: Raúl Hermosillo MD Re03/02/23 Status: REG RCR Location: [facility] Disch: SPEC : [id number] TESSIE: 03/02/23 STATUS: COMP REQ : [id number] RECD: 03/02/[address]: Raúl Hermosillo MD COMP: 03/02/23 ENTERED: 03/02/23 [facility] DR: Dorene Martinez MD ORDERED: CBC Auto Diff Test Result Flag Reference Site WBC 5.3 4.8-10.8 X10*3/uL RBC 4.07 L 4.20-5.50 X10*6/uL HGB 11.7 L 12.0-16.0 g/dl HCT 34.3 L 37.0-47.0 % MCV 84.3 80.0-98.0 fL MCH 28.7 27.0-33.0 pg MCHC 34.1 31.0-35.0 g/dl RDW 12.6 11.0-16.0 % PLT 247 # 160-400 X10*3/uL MPV 8.9 L 9.4-12.3 fL Neut Pct Auto 50.2 45-73 % ImGran Pct Auto 0.2 0.0-0.4 % Lymp Pct Auto 38.6 20-40 % Harding Pct Auto 9.1 2-11 % Eos Pct Auto 1.5 0-4 % Baso Pct Auto 0.4 0-2 % NRBC Pct Auto 0.0 0.0-0.2 /100WBC ANC Neut Abs # 2.6 2.0-8.3 x10*3/uL ImGran Abs Auto 0.01 0.00-0.03 X10*3/uL Lymph Abs Auto 2.0 1.2-4.9 X10*3/uL Harding Abs Auto 0.5 0.1-1.2 X10*3/uL Eos Abs Auto 0.1 0.0-0.4 X10*3/uL Baso Abs Auto 0.0 0.0-0.2 X10*3/uL NRBC Abs Auto 0.000 0.0-0.012 X10*3/uL Name: Vashti Cyr Age/Sex: 78/F : 1945 Unit#: [id number] Attend Dr: Dorene Martinez MD Re04/02/23 Status: DEP [facility] Disch: SPEC : [id number] TESSIE: 04/02/23 STATUS: COMP REQ : [id number] RECD: 04/02/23-[address]: Dorene Martinez MD COMP: 04/02/23 ENTERED: 04/02/[address]: ORDERED: Met Prof Fast, AST, ALT, Lipid Panel, Vitamin D 25-OH Test Result Flag Reference Site Sodium 138 135-145 mmol/L Potassium 4.3 3.3-5.1 mmol/L CL 100 96-108 mmol/L CO2 29 22-29 mmol/L Gap 13 12-20 BUN 16 9-16 mg/dL Creat 0.78 0.5-1.4 mg/dL EGFR > 60 NOTE: For -English individuals, multiply the result by 1.210. Chronic Kidney Disease: Estimated GFR < 60 mL/min/1.73m2 Severe Kidney Disease: Estimated GFR < 15 mL/min/1.73m2 FBS 145 H 60-99 mg/dL A fasting glucose of 126 mg/dl or greater on more than one occasion is considered diagnostic of diabetes. CA 10.0 8.4-10.2 mg/dL AST (GOT) 18 5-31 U/L ALT (GPT) 12 0-31 U/L Triglyceride 188 H <150 mg/dL Desirable Triglyceride: less than 150 mg/dL Borderline High Triglyceride 150-199 mg/dL High Triglyceride: 200-499 mg/dL Very High Triglyceride: greater than or equal to 5OO mg/dL Cholesterol 166 <200 mg/dL Desirable Cholesterol: less than 200 mg/dL Borderline High Cholesterol: 200-239 mg/dL High Cholesterol: greater than 239 mg/dL LDL Calculated 91 <100 mg/dL Desirable LDL: less than 100 mg/dL Near Optimal/Above Optimal LDL: 110-129 mg/dL Borderline High LDL: 130-159 mg/dL High LDL: 160-189 mg/dL Very High LDL: greater than or equal to 190 mg/dL HDL 38 L >40 mg/dL Desirable HDL: greater than 40 mg/dL Note: This HDL assay may give artificially low results in patients with liver disease. Vit D 25-OH Tot 34.5 >30 ng/mL Health Based Reference Values* < 20 ng/mL Deficient 20-30 ng/mL Insufficient > 30 ng/mL Sufficient Laboratory Tests 12/25/22 04/02/23 11:00 08:38 Estimat Average Glucose 146 146 Hemoglobin A1c % 6.7 H Assessment and Plan Assessment & Plan (1) Type 2 diabetes mellitus without complication, without long-term current use of insulin: Code(s): E11.9 - Type 2 diabetes mellitus without complications Plan: Recent lab results reviewed with patient, with sugar and hemoglobin A1c stable and at goal . Reinforced diabetic diet and regular exercise with patient. Counseled regarding importance of yearly diabetes retinopathy screening. Patient advised to inspect feet daily, for any signs of injury, callus or infection. Compliance with diet and regular exercise again stressed. Blood pressure goal is less than 130/80, goal LDL is less than 100 and goal hemoglobin A1c is less than 7% follow-up appointment made in 4 months, after fasting labs done. (2) Dyslipidemia: Code(s): E78.5 - Hyperlipidemia, unspecified Plan: Reviewed recent fasting lipid profile with patient with levels within normal limits . Continue with [place] 3 fatty acid supplements and simvastatin , in addition to adherence to low-cholesterol diet and regular exercise, at least 30 minutes 3 to 4 times a week. Advised patient to make healthy food choices, eat more fruits, vegetables, whole grains, wild caught fish and low-fat dairy. Limit amount of meat and fried or fatty food products, as well as processed foods and fast foods. Follow-up scheduled with repeat fasting lipid panel in 4 months. (3) Essential hypertension: Code(s): I10 - Essential (primary) hypertension Plan: Blood pressure slightly elevated today, goal is less than 130/80. Continue with valsartan hydrochlorothiazide and atenolol. Reinforced importance of following a low sodium diet, getting regular exercise, and lowering stress levels. (4) History of invasive ductal carcinoma of breast: Code(s): Z85.3 - Personal history of malignant neoplasm of breast Plan: Stage I, status post mastectomy with sentinel node biopsy, genetic testing came back negative, started on anastrozole 1 mg p.o. daily, followed by oncology Orders: Orders Hemoglobin A1c 07/16/23 E11.9 - Type 2 diabetes mellitus without complications, Z78.0 - Asymptomatic menopausal state, E78.5 - Hyperlipidemia, unspecified, I10 - Essential (primary) hypertension Alanine Aminotransferase 07/16/23 E11.9 - Type 2 diabetes mellitus without complications, Z78.0 - Asymptomatic menopausal state, E78.5 - Hyperlipidemia, unspecified, I10 - Essential (primary) hypertension Lipid Panel 07/16/23 E11.9 - Type 2 diabetes mellitus without complications, Z78.0 - Asymptomatic menopausal state, E78.5 - Hyperlipidemia, unspecified, I10 - Essential (primary) hypertension Aspartate Amino Transferase 07/16/23 E11.9 - Type 2 diabetes mellitus without complications, Z78.0 - Asymptomatic menopausal state, E78.5 - Hyperlipidemia, unspecified, I10 - Essential (primary) hypertension Basic Metabolic Panel Fasting 07/16/23 E11.9 - Type 2 diabetes mellitus without complications, Z78.0 - Asymptomatic menopausal state, E78.5 - Hyperlipidemia, unspecified, I10 - Essential (primary) hypertension Vitamin D 25-OH Total 07/16/23 E11.9 - Type 2 diabetes mellitus without complications, Z78.0 - Asymptomatic menopausal state, E78.5 - Hyperlipidemia, unspecified, I10 - Essential (primary) hypertension Microalbumin, Random (w Creat) 07/16/23 E11.9 - Type 2 diabetes mellitus without complications, Z78.0 - Asymptomatic menopausal state, E78.5 - Hyperlipidemia, unspecified, I10 - Essential (primary) hypertension Coding Level of Care Code Est Pt Level 4 (46538) Diagnoses Type 2 diabetes mellitus without complication, without long-term current use of insulin E11.9 Dyslipidemia E78.5 Essential hypertension I10 History of invasive ductal carcinoma of breast Z85.3
[2023-04-03 10:01] VITALS: BP 146/84; PULSE 66; O2SAT 97; BMI 36.8
== END 2023-04-03 10:59 | disposition home or self-care (01) ==
PROVIDERS: PCP Internal Medicine; Visit Provider Internal Medicine
DX: E11.9 Type 2 diabetes mellitus without complications (principal); E78.5 Hyperlipidemia, unspecified; I10 Essential (primary) hypertension; Z85.3 Personal history of malignant neoplasm of breast
CPT/HCPCS: 99214

== ENCOUNTER 2023-08-20 10:53 | Outpatient (REF) | payer MEDICARE, SELFPAY ==
[2023-08-20 14:00] LABS: Estimated Average Glucose 154 mg/dL; Hemoglobin A1C 152.4385 umol/L
[2023-08-20 14:14] LABS: Alanine Aminotransferase 14 U/L (0-31); Anion Gap 13 (12-20); Aspartate Amino Transferase 19 U/L (5-31); Blood Urea Nitrogen 16 mg/dL (9-16); Calcium 10.4 mg/dL (8.4-10.2); Carbon Dioxide 27 mmol/L (22-29); Chloride 102 mmol/L (96-108); Cholesterol 139 mg/dL (<200); Estimated Glomerular Filt Rate > 60; Glucose Fasting 134 mg/dL (60-99); HDL Cholesterol 39 mg/dL (>40); LDL Cholesterol Calculated 74 mg/dL (<100); Potassium 4.4 mmol/L (3.3-5.1); Sodium 138 mmol/L (135-145); Triglycerides 130 mg/dL (<150); Vitamin D 25-OH Total 40.1 ng/mL (>30)
[2023-08-20 14:26] LABS: Microalbum/Creatinine Ratio Ur 13.8 ug/mg cr (<30)
== END 2023-08-20 10:54 | disposition home or self-care (01) ==
LOC: HO.HMGCLDS 10:53
PROVIDERS: PCP Internal Medicine; Visit Provider Internal Medicine
DX: E11.9 Type 2 diabetes mellitus without complications (principal); E78.5 Hyperlipidemia, unspecified; I10 Essential (primary) hypertension; Z78.0 Asymptomatic menopausal state
CPT/HCPCS: 36415; 80048; 80061; 82043; 82306; 82570; 83036; 84450; 84460

== ENCOUNTER 2023-08-21 11:12 | Outpatient (AMB) | payer MEDICARE, SELFPAY ==
[2023-08-21 11:17] VITALS: BP 140/82; PULSE 60; O2SAT 98; BMI 37.1
--- NOTE | 2023-08-21 11:17 | A.OFFPC_ITS ---
Vital Signs 08/21/23 11:17 Height 5 ft 4 in Weight 216 lb BMI 37.1 BP 140/82 H Blood Pressure Location Rt brachial Position Sitting Pulse 60 Pulse Source Pulse Oximeter Pulse Oximetry (%) 98 Intake Visit Reasons: 3mth follow up labs Intake Note: pt is here for 3 month follow on labs Allergies amlodipine Allergy (Unknown, Verified 08/21/23 11:40) told to avoid lisinopril [LISINOPRIL] Adverse Reaction (Intermediate, Verified 08/21/23 11:40) TACHYCARDIA moxifloxacin [From VIGAMOX] Adverse Reaction (Intermediate, Verified 08/21/23 11:40) increased eye irritation BANDAIDS Allergy (Mild, Uncoded 08/21/23 11:40) RASH Medication List - Last Reconciled 08/21/23 by Dorene Martinez MD aspirin (Adult Low Dose Aspirin) 81 mg PO DAILY atenolol 50 mg PO BID calcium carbonate 390 mg PO DAILY cholecalciferol (vitamin D3) 25 mcg PO DAILY docusate sodium mg PO letrozole 2.5 mg PO Q24H omega-3 fatty acids (Fish Oil Concentrate) 1,000 mg PO BID simvastatin 40 mg PO BEDTIME valsartan-hydrochlorothiazide 160-25 mg 1 tab PO DAILY Tobacco use date assessed: 08/21/23 Dental Screening Dental Screen Date: 04/03/23 HPI 3mth follow up labs HPI Details 78-year-old lady with hyperlipidemia, hy pertension, diabetes mellitus diet controlled, and history of breast cancer, here today for her follow-up. She has been feeling well, no complaints at present time, has been compliant with her medications and has started to walk regularly for exercise. Recent fasting labs done showed normal lipids except for low good cholesterol, fasting sugars elevated with hemoglobin A1c at 7%, normal electrolytes and renal function slightly elevated calcium, normal liver enzymes and vitamin-D level. [facility] Medical History (Updated 06/05/23 @ 17:49 by Raúl Hermosillo MD) History of invasive ductal carcinoma of breast Hematoma Invasive ductal carcinoma of left breast, stage 1 Type 2 diabetes mellitus without complication, without long-term current use of insulin Menopause Dyslipidemia Essential hypertension Surgical History H/O left breast biopsy History of colonoscopy History of tonsillectomy Family History (Updated 08/21/23 @ 11:43 by Dorene Martinez MD) Mother Breast cancer Generalized anxiety disorder Brother No problems noted. Son No problems noted. Daughter No problems noted. Paternal Grandmother Diabetes mellitus Father Diabetes mellitus Other Mental health disorder Social History Household Members: Friend(s) Housing: Condominium Are you a primary interior plant caretaker to a significant other at home: No Do you presently have visiting nurse or other home services: No Alcohol intake: never Patient Tobacco Use Status: Never used Tobacco e-Cigarette/Vaping Use: Never Used Second Hand Smoke Exposure: No (as a child ) service: No Current occupational status: retired Cognitive needs: No Hearing needs: No Vision needs: Yes Female Reproductive History Menstrual Age of Menarche: 12 Questionnaire PHQ-9 Over the last 2 weeks, how often have you been bothered by any of the following problems? 1. Little interest or pleasure in doing things: not at all 2. Feeling down, depressed, or hopeless: not at all 3. Trouble falling or staying asleep, or sleeping too much: not at all 4. Feeling tired or having little energy: not at all 5. Poor appetite or overeating: not at all 6. Feeling bad about yourself - or that you are a failure or have let yourself or your family down: not at all 7. Trouble concentrating on things, such as reading the newspaper or watching television: not at all 8. Moving or speaking so slowly that other people could have noticed. Or the op posite - being so fidgety or restless that you have been moving around a lot more than usual: not at all 9. Thoughts that you would be better off or of hurting yourself in some way: not at all Total score: 0 Depression Screening Interpretation: Negative Depression Screening Done: Yes 65025 - PHQ-9 Billing: Yes Source: Developed by Drs. Mahendra Astudillo, Leti Perez, Ernie Oliver and colleagues, with an educational penny from [employer]. Thrive Questionnaire Date Thrive assessed: 08/21/23 I am a: Patient What is your living situation today?: I have a steady place to live Within the past 12 months, did the food you bought not last and you didn't have the money to get more?: Never true Within the past 12 months, did you worry whether your food would run out before you got money to buy more?: Never true Do you have trouble paying for medicines?: No Do you have trouble getting transportation to medical appointments?: No Do you have trouble paying your heating and electricity bill?: No Do you have trouble taking care of your child, family member or friend?: No Do you have trouble with day-to-day activities such as bathing, preparing meals, shopping, managing finances, etc.?: No Are you currently unemployed and looking for a job?: No Are you interested in more education?: No Please select the resources that you would like help with: None Currently or been in a relationship where the following occur: no concerns reported THRIVE Score: 0 AUDIT C Alcohol Use Questionnaire (AUDIT-C) 1. How often do you have a drink containing alcohol?: Never 3. How often do you have six or more drinks on one occasion?: Never Total Score: 0 Score Reviewed/Action Taken: Yes DRISS-7 AMB Questionnaire DRISS-7 Date DRISS - 7 assessed: 08/21/23 Feeling nervous, anxious, or on edge: 1 = Several days Not being able to stop or control worryin = Not at all Worrying too much about different things: 1 = Several days Trouble relaxin = Not at all Being so restless that it is hard to sit still: 0 = Not at all Becoming easily annoyed or irritable: 0 = Not at all Feeling afraid as if something awful might happen: 0 = Not at all Total DRISS-7 score (0-4 normal; 5-9 mild; 10-14 moderate; 15-21 severe): 2 Source: Developed by Drs. Mahendra Astudillo, Leti Perez, Ernie Oliver and colleagues, with an educational penny from [employer]. DRISS-7 Assessment Billing DRISS-7 Assessment Tool: DRISS-7 Assessment 77013 Review of Systems Const Denies chills, Denies fever(s), Denies headache(s), Denies lethargy, Denies malaise and Denies weakness Eyes Details: Up-to-date for her diabetes retinopathy screening, sees Dr. Caballero, last exam done earlier this year Reports no additional complaints ENT Denies dizziness and Denies headache(s) Card Denies chest pain, Denies dyspnea and Denies dyspnea on exertion Resp Denies cough, Denies dyspnea and Denies dyspnea on exertion GI Denies abdominal pain, Denies bloating, Denies hematochezia, Denies change in bowel habits and Denies heartburn Denies hematuria Musc Denies back pain and Denies limited range of motion Skin/Breast Details: Healed left mastectomy scar Neuro Denies dizziness, Denies headache(s), Denies focal weakness, Denies convulsions, Denies paresthesias and Denies weakness Psych Denies depression and Denies mood swings Endo Reports no additional complaints Vitaliy/Lymph Reports no additional complaints Aller/Immun Reports no additional complaints Physical exam (Primary Care) Vital Signs: Last Vital Signs Pulse 60 08/21/23 11:17 BP 140/82 H 08/21/23 11:17 Pulse Ox 98 08/21/23 11:17 BMI result Body Mass Index 37.1 Tobacco/Smoking Status: Tobacco use Status Tobacco use date assessed 08/21/23 08/21/23 11:22 Patient Tobacco Use Status Never used Tobacco 08/21/23 11:17 e-Cigarette/Vaping Use Never Used 08/21/23 11:17 PHQ-9: PHQ-9 Score PHQ-9: Total score 0 08/21/23 11:44 Depression Screening Interpretation: Negative Thrive Assessment: Date of Thrive Assessment Date Thrive assessed 08/21/23 08/21/23 11:18 Currently or been in a relationship where the following occur: no concerns reported Const General: cooperative, comfortable and no acute distress Orientation/consciousness: patient oriented x3 HENMT Ears: hearing grossly normal bilaterally and external ears normal General nose exam: Normal external nose present Mouth: Normal oral and palatal mucosa present, oropharynx normal and moist mucous membranes Eyes General: appearance normal, both eyes and all related structures Conjunctivae: conjunctivae normal Pupils: Equal, round and reactive pupils present EOM: EOMs intact bilaterally Neck Neck: Yes full ROM, Yes no lymphadenopathy and Yes supple Chest Other: Mastectomy scar on left Resp Effort & Inspection: normal respiratory effort and able to speak in complete sentences Auscultation: clear to auscultation bilaterally Cardio Rate: regular rate Rhythm: regular rhythm Heart sounds: S1 normal heart sound present and S2 normal heart sound present GI Inspection: Yes normal to inspection Palpation (GI): Soft to palpation, nontender and no masses Auscultation: normal bowel sounds Back/Spine/Pelvis Back: No back tenderness Skin General skin exam: no rashes or lesions noted Neuro General: patient oriented x3, gait normal, tone normal, moves all extremities, Normal light touch and pain sensation and no focal motor deficits Cranial nerves: Yes Equal, round and reactive pupils present Cognition (Neuro): normal cognition Gait exam (Neuro): Normal gait present Motor exam (neuro): 5/5 motor strength present throughout Extrem General: Yes full ROM, Yes no joint enlargement, Yes no pedal edema and Yes normal gait Psych Appearance: grossly normal Mental Status: mental status grossly normal Speech and movement: Normal speech and movement present Affect: normal affect Attitude: cooperative Thought process: Normal thought process present Results Reviewed Results Reviewed: Name: Vashti Cyr Age/Sex: 78/F : 1945 Unit#: [id number] Attend Dr: Dorene Martinez MD Re08/20/23 Status: DEP [facility] Dis[facility]: SPEC : [id number] TESSIE: 08/20/23-1056 STATUS: COMP REQ : [id number] RECD: 08/20/23-[address]: Dorene Martinez MD COMP: 08/20/23-4 ENTERED: 08/20/23-[address]: ORDERED: Met Prof Fast, AST, ALT, Lipid Panel, Vitamin D 25-OH Test Result Flag Reference Sodium 138 135-145 mmol/L Potassium 4.4 3.3-5.1 mmol/L CL 102 96-108 mmol/L CO2 27 22-29 mmol/L Gap 13 12-20 BUN 16 9-16 mg/dL Creat 0.80 0.5-1.4 mg/dL EGFR > 60 NOTE: For -[place] individuals, multiply the result by 1.210. Chronic Kidney Disease: Estimated GFR < 60 mL/min/1.73m2 Severe Kidney Disease: Estimated GFR < 15 mL/min/1.73m2 FBS 134 H 60-99 mg/dL A fasting glucose of 126 mg/dl or greater on more than one occasion is considered diagnostic of diabetes. CA 10.4 # H 8.4-10.2 mg/dL AST (GOT) 19 5-31 U/L ALT (GPT) 14 0-31 U/L Triglyceride 130 <150 mg/dL Desirable Triglyceride: less than 150 mg/dL Borderline High Triglyceride 150-199 mg/dL High Triglyceride: 200-499 mg/dL Very High Triglyceride: greater than or equal to 5OO mg/dL Cholesterol 139 <200 mg/dL Desirable Cholesterol: less than 200 mg/dL Borderline High Cholesterol: 200-239 mg/dL High Cholesterol: greater than 239 mg/dL LDL Calculated 74 <100 mg/dL Desirable LDL: less than 100 mg/dL Near Optimal/Above Optimal LDL: 110-129 mg/dL Borderline High LDL: 130-159 mg/dL High LDL: 160-189 mg/dL Very High LDL: greater than or equal to 190 mg/dL HDL 39 L >40 mg/dL Desirable HDL: greater than 40 mg/dL Note: This HDL assay may give artificially low results in patients with liver disease. Vit D 25-OH Tot 40.1 >30 ng/mL Health Based Reference Values* < 20 ng/mL Deficient 20-30 ng/mL Insufficient > 30 ng/mL Sufficient Laboratory Tests 06/05/23 09:32 WBC 4.7 L Hgb 11.7 L Hct 35.4 L MCV 84.5 MCH 27.9 RDW 13.2 Plt Count 209 Assessment and Plan Assessment & Plan (1) Essential hypertension: Code(s): I10 - Essential (primary) hypertension Plan: Blood pressure today showing systolic at 01:40 with normal diastolic, but better compared to last check. Continue a low-salt diet, continue with valsartan-HCTZ 160-25 mg taken once daily and atenolol 50 mg twice a day. Reinforced importance of doing regular weight-bearing exercise. (2) Dyslipidemia: Code(s): E78.5 - Hyperlipidemia, unspecified Plan: Reviewed recent fasting lipid profile with patient with levels at goal except for low good cholesterol . Continue with simvastatin 40 mg at bedtime , in addition to adherence to low-cholesterol diet and regular exercise, at least 30 minutes 3 to 4 times a week. Advised patient to make healthy food choices, eat more fruits, vegetables, whole grains, wild caught fish and low-fat dairy. Limit amount of meat and fried or fatty food products, as well as processed foods and fast foods. Follow-up scheduled with repeat fasting lipid panel in 6 months. (3) Type 2 diabetes mellitus without complication, without long-term current use of insulin: Code(s): E11.9 - Type 2 diabetes mellitus without complications Plan: Diabetes mellitus diet controlled, noted that hemoglobin A1c is higher than last check at 7%. Reinforced importance of following her recommended diet and getting regular exercise. Will check again in six-month. Up-to-date with her diabetes retinopathy screening, sees Dr. Caballero, done earlier this year. Up-to-date with her vaccines Orders: Orders Alanine Aminotransferase 12/16/23 E11.9 - Type 2 diabetes mellitus without complications, E78.5 - Hyperlipidemia, unspecified, I10 - Essential (primary) hypertension, Z78.0 - Asymptomatic menopausal state Aspartate Amino Transferase 12/16/23 E11.9 - Type 2 diabetes mellitus without complications, E78.5 - Hyperlipidemia, unspecified, I10 - Essential (primary) hypertension, Z78.0 - Asymptomatic menopausal state Lipid Panel 12/16/23 E11.9 - Type 2 diabetes mellitus without complications, E78.5 - Hyperlipidemia, unspecified, I10 - Essential (primary) hypertension, Z78.0 - Asymptomatic menopausal state Hemoglobin A1c 12/16/23 E11.9 - Type 2 diabetes mellitus without complications, E78.5 - Hyperlipidemia, unspecified, I10 - Essential (primary) hypertension, Z78.0 - Asymptomatic menopausal state Vitamin D 25-OH Total 12/16/23 E11.9 - Type 2 diabetes mellitus without complications, E78.5 - Hyperlipidemia, unspecified, I10 - Essential (primary) hypertension, Z78.0 - Asymptomatic menopausal state Basic Metabolic Panel Fasting 12/16/23 E11.9 - Type 2 diabetes mellitus without complications, E78.5 - Hyperlipidemia, unspecified, I10 - Essential (primary) hypertension, Z78.0 - Asymptomatic menopausal state Coding Level of Care Code Est Pt Level 4 (49782) Diagnoses Essential hypertension I10 Dyslipidemia E78.5 Type 2 diabetes mellitus without complication, without long-term current use of insulin E11.9 Additional Codes DRISS-7 Assessment Billing - DRISS-7 Assessment Tool: DRISS-7 Assessment 33987 ([id number])
== END 2023-08-21 12:02 | disposition home or self-care (01) ==
PROVIDERS: PCP Internal Medicine; Visit Provider Internal Medicine
DX: I10 Essential (primary) hypertension (principal); E78.5 Hyperlipidemia, unspecified; E11.69 Type 2 diabetes mellitus with other specified complication
CPT/HCPCS: 99214

== ENCOUNTER 2023-09-13 08:39 | Outpatient (AMB) | payer MEDICARE, SELFPAY ==
[2023-09-13 08:42] VITALS: BMI 41.0
--- NOTE | 2023-09-13 08:42 | A.OFFVIS_ITS ---
Vital Signs 09/13/23 08:42 Height 5 ft 1 in Weight 217 lb 2.485 oz BMI 41.0 Intake Visit Reasons: Breast exam, 6 month follow up Intake Note: This patient presents for a six month follow-up breast examination assessment. Patient c/o; reports no breast complaints. 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 Accompanied by: Self / Same As Patient Allergies amlodipine Allergy (Unknown, Verified 09/13/23 08:48) told to avoid lisinopril [LISINOPRIL] Adverse Reaction (Intermediate, Verified 09/13/23 08:48) TACHYCARDIA moxifloxacin [From VIGAMOX] Adverse Reaction (Intermediate, Verified 09/13/23 08:48) increased eye irritation BANDAIDS Allergy (Mild, Uncoded 09/13/23 08:48) RASH Medication List - Last Reconciled 09/13/23 by Abner Lee MD aspirin (Adult Low Dose Aspirin) 81 mg PO DAILY atenolol 50 mg PO BID calcium carbonate 390 mg PO DAILY cholecalciferol (vitamin D3) 25 mcg PO DAILY letrozole 2.5 mg PO Q24H omega-3 fatty acids (Fish Oil Concentrate) 1,000 mg PO BID simvastatin 40 mg PO BEDTIME valsartan-hydrochlorothiazide 160-25 mg 1 tab PO DAILY HPI HPI Breast exam, 6 month follow up: Details: She is here for follow-up after mastectomy of the left breast last January, for a T1 N0 invasive ductal carcinoma. She states that she is doing well and denies significant complaints at this time. She is on Arimidex and is being followed by Dr. Hermosillo. [facility] Medical History History of invasive ductal carcinoma of breast Hematoma Invasive ductal carcinoma of left breast, stage 1 Type 2 diabetes mellitus without complication, without long-term current use of insulin Menopause Dyslipidemia Essential hypertension Surgical History H/O left breast biopsy History of colonoscopy History of tonsillectomy Family History Mother Breast cancer Generalized anxiety disorder Brother No problems noted. Son No problems noted. Daughter No problems noted. Paternal Grandmother Diabetes mellitus Father Diabetes mellitus Other Mental health disorder Social History Household Members: Friend(s) [facility] Are you a primary day care home provider to a significant other at home: No Do you presently have visiting nurse or other home services: No Alcohol intake: never Patient Tobacco Use Status: Never used Tobacco e-Cigarette/Vaping Use: Never Used Second Hand Smoke Exposure: No (as a child ) service: No Current occupational status: retired Cognitive needs: No Hearing needs: No Vision needs: Yes Female Reproductive History Menstrual Age of Menarche: 12 Review of Systems Const Denies chills and Denies fever(s) Card Denies chest pain, Denies dyspnea and Denies dyspnea on exertion Resp Denies cough, Denies dyspnea and Denies dyspnea on exertion GI Denies hematochezia and Denies change in bowel habits Denies hematuria Musc Denies back pain and Denies limited range of motion Neuro Denies focal weakness and Denies convulsions Psych Denies depression and Denies mood swings Physical Exam Vital Signs: BMI result Body Mass Index 41.0 Const General: comfortable and no acute distress Chest Other: Left mastectomy site with excess skin, no palpable chest wall mass Right breast large, no palpable mass, no axillary lymphadenopathy on both sides Resp Effort & Inspection: normal respiratory effort Cardio Rate: regular rate GI Palpation (GI): Soft to palpation Assessment & Plan Assessment & Plan (1) History of invasive ductal carcinoma of breast: Code(s): Z85.3 - Personal history of malignant neoplasm of breast Category: Medical Plan: She is doing well after mastectomy on the left side for a T1 N0 invasive ductal carcinoma last year There were no palpable masses on the chest wall on the mastectomy site nor on the right breast. She has no axillary lymphadenopathy. She is scheduled to have a mammogram for the right breast this summer and I will see her after that She is on Arimidex and we will continue to follow with Dr. Hermosillo of Oncology. Coding Level of Care Code Est Pt Level 3 (27729) Diagnoses History of invasive ductal carcinoma of breast Z85.3
== END 2023-09-13 09:04 | disposition home or self-care (01) ==
PROVIDERS: PCP Internal Medicine; Visit Provider Surgery
DX: Z85.3 Personal history of malignant neoplasm of breast (principal)
CPT/HCPCS: 99213

== ENCOUNTER → 2023-09-13 08:39 | Outpatient (BNVA) | payer MEDICARE, SELFPAY | PROVIDERS: PCP Internal Medicine; Visit Provider Surgery | DX: C50.912 Malignant neoplasm of unspecified site of left female breast (principal); Z90.12 Acquired absence of left breast and nipple; Z79.811 Long term (current) use of aromatase inhibitors | CPT/HCPCS: 99212 ==

== ENCOUNTER 2023-12-04 08:45 | Outpatient (REF) | payer MEDICARE, SELFPAY ==
--- NOTE | ~2023-12-04 | MM_ITS ---
EXAMINATION: MM SCREENING DIGITAL BREAST TOMOSYNTHESIS, RIGHT CLINICAL INFORMATION: Screening. Asymptomatic. Left breast mastectomy 2022 for IDC. COMPARISON: Mammography: 11/28/2022, 11/21/2021, 11/17/2020, 11/10/2019, and dating back to 2016. TECHNIQUE: Digital right breast tomosynthesis is performed in both the craniocaudal and mediolateral oblique views along with computer-aided detection (CAD). Synthesized 2D images are generated from the tomosynthesis. In addition, added right full Field 3-D CC and MLO views were obtained. FINDINGS: There are scattered areas of fibroglandular density (ACR BI-RADS breast composition Category b). There are mild vascular calcifications. There are no suspicious masses, suspicious grouped calcifications, or areas of architectural distortion in either breast. The parenchymal pattern is stable from prior exams. There is no skin or axillary abnormality. MM/MM tomosynthesis screening RT IMPRESSION: No mammographic evidence of malignancy. ASSESSMENT: BI-RADS BI-RADS 2 - Benign Findings RECOMMENDATION: Routine annual mammography screening. 1 year F/U This examination should not preclude the clinical evaluation of a suspicious palpable abnormality. This patient's information was entered into a reminder system with a target due date for their next mammogram. Electronically signed by: Austin Dixon MD 12/11/2023 10:00 AM EDT
== END 2023-12-04 08:46 | disposition home or self-care (01) ==
LOC: HO.MAMMO 08:45
PROVIDERS: Absent Provider Surgery; PCP Internal Medicine; Visit Provider Internal Medicine
DX: Z12.31 Encounter for screening mammogram for malignant neoplasm of breast (principal)
CPT/HCPCS: 77063; 77067

== ENCOUNTER → 2023-12-04 09:15 | Outpatient (BNV) | payer MEDICARE, SELFPAY | PROVIDERS: Absent Provider Surgery; PCP Internal Medicine; Visit Provider Radiology Diagnostic Radiology | DX: Z12.31 Encounter for screening mammogram for malignant neoplasm of breast (principal) | CPT/HCPCS: 77063; 77067 ==

== ENCOUNTER 2023-12-12 08:45 | Outpatient (AMB) | payer MEDICARE, SELFPAY ==
[2023-12-12 08:46] VITALS: BMI 41.0
--- NOTE | 2023-12-12 08:46 | A.OFFVIS_ITS ---
Vital Signs 12/12/23 08:46 Height 5 ft 1 in Weight 217 lb 2.485 oz BMI 41.0 Intake Visit Reasons: Mammo follow up visit Intake Note: This patient presents for Mammo follow up visit. Pt c/o; reports no complaints at this time. MM screenin12/04/2023 Judicial Registrar Required: No Accompanied by: Self / Same As Patient Allergies amlodipine Allergy (Unknown, Verified 12/12/23 08:46) told to avoid lisinopril [LISINOPRIL] Adverse Reaction (Intermediate, Verified 12/12/23 08:46) TACHYCARDIA moxifloxacin [From VIGAMOX] Adverse Reaction (Intermediate, Verified 12/12/23 08:46) increased eye irritation BANDAIDS Allergy (Mild, Uncoded 12/12/23 08:46) RASH Medication List - Last Reconciled 12/12/23 by Abner Lee MD aspirin (Adult Low Dose Aspirin) 81 mg PO DAILY atenolol 50 mg PO BID calcium carbonate 390 mg PO DAILY cholecalciferol (vitamin D3) 25 mcg PO DAILY letrozole 2.5 mg PO Q24H omega-3 fatty acids (Fish Oil Concentrate) 1,000 mg PO BID simvastatin 40 mg PO BEDTIME valsartan-hydrochlorothiazide 160-25 mg 1 tab PO DAILY HPI HPI Mammo follow up visit: Details: She is here for follow-up after mastectomy of the left breast last January, for a T1 N0 invasive ductal carcinoma. She continues do well. She denies significant complaints. She just had a mammogram for the right breast last week. She is on Arimidex. She follows Dr. Hermosillo for this. [facility] Medical History History of invasive ductal carcinoma of breast Hematoma Invasive ductal carcinoma of left breast, stage 1 Type 2 diabetes mellitus without complication, without long-term current use of insulin Menopause Dyslipidemia Essential hypertension Surgical History H/O left breast biopsy History of colonoscopy History of tonsillectomy Family History Mother Breast cancer Generalized anxiety disorder Brother No problems noted. Son No problems noted. Daughter No problems noted. Paternal Grandmother Diabetes mellitus Father Diabetes mellitus Other Mental health disorder Social History Household Members: Friend(s) Housing: Condominium Are you a primary career development facilitator to a significant other at home: No Do you presently have visiting nurse or other home services: No Alcohol intake: never Patient Tobacco Use Status: Never used Tobacco e-Cigarette/Vaping Use: Never Used Second Hand Smoke Exposure: No (as a child ) service: No Current occupational status: retired Cognitive needs: No Hearing needs: No Vision needs: Yes Female Reproductive History Menstrual Age of Menarche: 12 Review of Systems Const Denies chills and Denies fever(s) Card Denies chest pain, Denies dyspnea and Denies dyspnea on exertion Resp Denies cough, Denies dyspnea and Denies dyspnea on exertion GI Denies hematochezia and Denies change in bowel habits Denies hematuria Musc Denies back pain and Denies limited range of motion Neuro Denies focal weakness and Denies convulsions Psych Denies depression and Denies mood swings Physical Exam Vital Signs: BMI result Body Mass Index 41.0 Const Other: Obese General: comfortable and no acute distress Orientation/consciousness: patient oriented x3 Neck Neck: Yes no lymphadenopathy Chest Other: Mastectomy site the left without any palpable masses, no axillary lymphadenopathy Right breast without any palpable mass, no axillary lymphadenopathy Resp Auscultation: clear to auscultation bilaterally Cardio Rhythm: regular rhythm GI Palpation (GI): Soft to palpation, nontender and no guarding Neuro General: patient oriented x3 Assessment & Plan Assessment & Plan (1) History of invasive ductal carcinoma of breast: Code(s): Z85.3 - Personal history of malignant neoplasm of breast Category: Medical Plan: She is doing well after mastectomy for a T1 N0 invasive carcinoma I have reviewed her mammogram from last week and this does not suggest any breast mass or suspicious lesions/ calcifications Her current breast exam is unremarkable I will see her again in the office in about 6 months for another exam. I reminded her to continue doing regular screening mammograms at least once a year. Coding Level of Care Code Est Pt Level 3 (41228) Diagnoses History of invasive ductal carcinoma of breast Z85.3
== END 2023-12-12 09:09 | disposition home or self-care (01) ==
PROVIDERS: PCP Internal Medicine; Visit Provider Surgery
DX: Z85.3 Personal history of malignant neoplasm of breast (principal)
CPT/HCPCS: 99213

== ENCOUNTER → 2023-12-12 08:45 | Outpatient (BNVA) | payer MEDICARE, SELFPAY | PROVIDERS: PCP Internal Medicine; Visit Provider Surgery | DX: Z85.3 Personal history of malignant neoplasm of breast (principal); Z90.12 Acquired absence of left breast and nipple | CPT/HCPCS: 99212 ==

== ENCOUNTER 2024-01-01 08:30 | Outpatient (REF) | payer MEDICARE, SELFPAY ==
[2024-01-01 10:53] LABS: Estimated Average Glucose 154 mg/dL; Hemoglobin A1C 162.9249 umol/L
[2024-01-01 11:16] LABS: Alanine Aminotransferase 12 U/L (0-31); Anion Gap 11 (12-20); Aspartate Amino Transferase 16 U/L (5-31); Blood Urea Nitrogen 17 mg/dL (9-16); Calcium 10.2 mg/dL (8.4-10.2); Carbon Dioxide 31 mmol/L (22-29); Chloride 102 mmol/L (96-108); Cholesterol 156 mg/dL (<200); Estimated Glomerular Filt Rate > 60; Glucose Fasting 156 mg/dL (60-99); HDL Cholesterol 38 mg/dL (>40); LDL Cholesterol Calculated 84 mg/dL (<100); Potassium 4.6 mmol/L (3.3-5.1); Sodium 139 mmol/L (135-145); Triglycerides 174 mg/dL (<150); Vitamin D 25-OH Total 39.8 ng/mL (>30)
== END 2024-01-01 08:31 | disposition home or self-care (01) ==
LOC: HO.HMGCLDS 08:30
PROVIDERS: PCP Internal Medicine; Visit Provider Internal Medicine
DX: E11.9 Type 2 diabetes mellitus without complications (principal); E78.5 Hyperlipidemia, unspecified; I10 Essential (primary) hypertension; Z78.0 Asymptomatic menopausal state
CPT/HCPCS: 36415; 80048; 80061; 82306; 83036; 84450; 84460

== ENCOUNTER → 2024-01-03 12:04 | Outpatient (BNVA) | payer MEDICARE, SELFPAY | PROVIDERS: PCP Internal Medicine ==

== ENCOUNTER 2024-01-04 11:46 | Outpatient (AMB) | payer MEDICARE, SELFPAY ==
--- NOTE | 2024-01-04 11:47 | A.OFFPC_ITS ---
Intake Visit Reasons: f/u I phone Intake Note: Pt is having a TH visit to discuss recent labs results b/p 150/78 Allergies amlodipine Allergy (Unknown, Verified 01/04/24 12:57) told to avoid lisinopril [LISINOPRIL] Adverse Reaction (Intermediate, Verified 01/04/24 12:57) TACHYCARDIA moxifloxacin [From VIGAMOX] Adverse Reaction (Intermediate, Verified 01/04/24 12:57) increased eye irritation BANDAIDS Allergy (Mild, Uncoded 01/04/24 12:57) RASH Medication List - Last Reconciled 01/04/24 by Dorene Martinez MD aspirin (Adult Low Dose Aspirin) 81 mg PO DAILY atenolol 50 mg PO BID calcium carbonate 390 mg PO DAILY cholecalciferol (vitamin D3) 25 mcg PO DAILY letrozole 2.5 mg PO Q24H omega-3 fatty acids (Fish Oil Concentrate) 1,000 mg PO BID simvastatin 40 mg PO BEDTIME valsartan-hydrochlorothiazide 160-25 mg 1 tab PO DAILY Tobacco use date assessed: 01/04/24 Fall risk assessment: No Falls in past year Last assessed Fall Risk: 01/04/24 Dental Screening Dental Screen Date: 01/04/24 Did you have a dental visit in the last 12 months?: No Did you have a dental problem in the last 6 months where you did not have access to dental care?: No Was dental information given to patient?: Patient has dentist HPI f/u I phone HPI Details Telehealth visit made with 78-year-old lady with past medical history of invasive ductal carcinoma of left breast currently on letrozole, has hypertension, hyperlipidemia, and diabetes mellitus without complication or long-term insulin use, currently not on medication, here today for follow-up. Her blood pressure was checked yesterday by the nurse navigator and it was elevated at 150/78, and previous blood pressure measurements were also elevated. Currently on atenolol 50 mg twice a day, and valsartan-HCTZ 160-25 mg 1 tablet in the morning. She states that she has been under lot of stress taking care of her son who has cancer, has been in and out of [place] to help with his treatments. Has been trying to avoid eating lot of potato chips, and has tried walking regularly for exercise. She had recent fasting labs done which showed elevated triglycerides, but LDL cholesterol and HDL are within normal limits. [facility] Medical History History of invasive ductal carcinoma of breast Hematoma Invasive ductal carcinoma of left breast, stage 1 Type 2 diabetes mellitus without complication, without long-term current use of insulin Menopause Dyslipidemia Essential hypertension Surgical History H/O left breast biopsy History of colonoscopy History of tonsillectomy Family History Mother Breast cancer Generalized anxiety disorder Brother No problems noted. Son No problems noted. Daughter No problems noted. Paternal Grandmother Diabetes mellitus Father Diabetes mellitus Other Mental health disorder Social History Household Members: Friend(s) [facility] Are you a primary furnace caretaker to a significant other at home: No Do you presently have visiting nurse or other home services: No Alcohol intake: never Patient Tobacco Use Status: Never used Tobacco e-Cigarette/Vaping Use: Never Used Second Hand Smoke Exposure: No (as a child ) service: No Current occupational status: retired Cognitive needs: No Hearing needs: No Vision needs: Yes Female Reproductive History Menstrual Age of Menarche: 12 Questionnaire Thrive Questionnaire Date Thrive assessed: 08/21/23 DRISS-7 AMB Questionnaire DRISS-7 Date DRISS - 7 assessed: 08/21/23 Source: Developed by Drs. Mahendra Astudillo, Leti Perez, Ernie Oliver and colleagues, with an educational penny from [employer]. Review of Systems Const Denies chills and Denies fever(s) ENT Reports no additional complaints Card Denies chest pain, Denies dyspnea and Denies dyspnea on exertion Resp Denies cough, Denies dyspnea and Denies dyspnea on exertion GI Denies hematochezia and Denies change in bowel habits Denies hematuria Musc Denies back pain Neuro Denies focal weakness and Denies convulsions Psych Denies depression and Denies mood swings Endo Reports no additional complaints Vitaliy/Lymph Reports no additional complaints Aller/Immun Reports no additional complaints Physical exam (Primary Care) Tobacco/Smoking Status: Tobacco use Status Tobacco use date assessed 01/04/24 01/04/24 11:48 Patient Tobacco Use Status Never used Tobacco 01/04/24 11:48 e-Cigarette/Vaping Use Never Used 01/04/24 11:48 Thrive Assessment: Date of Thrive Assessment Date Thrive assessed 08/21/23 01/04/24 11:48 Results Reviewed Results Reviewed: Name: Vashti yCr Age/Sex: 78/F : 1945 Unit#: [id number] Attend Dr: Raúl Hermosillo MD Re11/29/23 Status: REG RCR [facility] Disch: SPEC : [id number] TESSIE: 11/29/23 STATUS: COMP REQ : [id number] RECD: 11/29/[address]: Raúl Hermosillo MD COMP: 11/29/23 ENTERED: 11/29/[address]: Dorene Martinez MD ORDERED: CBC Auto Diff Test Result Flag Reference WBC 5.0 4.8-10.8 X10*3/uL RBC 4.16 L 4.20-5.50 X10*6/uL HGB 12.2 12.0-16.0 g/dl HCT 35.1 L 37.0-47.0 % MCV 84.4 80.0-98.0 fL MCH 29.3 27.0-33.0 pg MCHC 34.8 31.0-35.0 g/dl RDW 12.6 11.0-16.0 % PLT 197 160-400 X10*3/uL MPV 8.8 L 9.4-12.3 fL Neut Pct Auto 50.8 45-73 % ImGran Pct Auto 0.2 0.0-0.4 % Lymp Pct Auto 37.2 20-40 % [place] Pct Auto 9.8 2-11 % Eos Pct Auto 1.4 0-4 % Baso Pct Auto 0.6 0-2 % NRBC Pct Auto 0.0 0.0-0.2 /100WBC ANC Neut Abs # 2.5 2.0-8.3 x10*3/uL ImGran Abs Auto 0.01 0.00-0.03 X10*3/uL Lymph Abs Auto 1.9 1.2-4.9 X10*3/uL [place] Abs Auto 0.5 0.1-1.2 X10*3/uL Eos Abs Auto 0.1 0.0-0.4 X10*3/uL Baso Abs Auto 0.0 0.0-0.2 X10*3/uL NRBC Abs Auto 0.000 0.0-0.012 X1 0*3/uL Laboratory Tests 08/20/23 08/20/23 01/01/24 10:57 11:00 09:00 Estimat Average Glucose 154 154 Hemoglobin A1c % 7.0 H 7.0 H Urine Creatinine 57.80 Urine Microalbumin 8.0 Microalb/Creat Ratio 13.8 Name: Vashti Cyr Age/Sex: 78/F : 1945 Unit#: [id number] Attend Dr: Dorene Martinez MD Re01/01/24 Status: DEP REF Location: [facility] Disch: SPEC : [id number] TESSIE: 01/01/24 STATUS: COMP REQ : [id number] RECD: 01/01/24-[address]: Dorene Martinez MD COMP: 01/01/24 ENTERED: 01/01/24-[address] [facility] [address]: ORDERED: Met Prof Fast, AST, ALT, Lipid Panel, Vitamin D 25-OH Test Result Flag Reference Sodium 139 135-145 mmol/L Potassium 4.6 3.3-5.1 mmol/L CL 102 96-108 mmol/L CO2 31 H 22-29 mmol/L Gap 11 L 12-20 BUN 17 H 9-16 mg/dL Creat 0.81 0.5-1.4 mg/dL EGFR > 60 NOTE: For -[place] individuals, multiply the result by 1.210. Chronic Kidney Disease: Estimated GFR < 60 mL/min/1.73m2 Severe Kidney Disease: Estimated GFR < 15 mL/ min/1.73m2 FBS 156 H 60-99 mg/dL A fasting glucose of 126 mg/dl or greater on more than one occasion is considered diagnostic of diabetes. CA 10.2 8.4-10.2 mg/dL AST (GOT) 16 5-31 U/L ALT (GPT) 12 0-31 U/L Triglyceride 174 H <150 mg/dL Desirable Triglyceride: less than 150 mg/dL Borderline High Triglyceride 150-199 mg/dL High Triglyceride: 200-499 mg/dL Very High Triglyceride: greater than or equal to 5OO mg/dL Cholesterol 156 <200 mg/dL Desirable Cholesterol: less than 200 mg/dL Borderline High Cholesterol: 200-239 mg/dL High Cholesterol: greater than 239 mg/dL LDL Calculated 84 <100 mg/dL Desirable LDL: less than 100 mg/dL Near Optimal/Above Optimal LDL: 110-129 mg/dL Borderline High LDL: 130-159 mg/dL High LDL: 160-189 mg/dL Very High LDL: greater than or equal to 190 mg/dL HDL 38 L >40 mg/dL Desirable HDL: greater than 40 mg/dL Note: This HDL assay may give artificially low results in patients with liver disease. Vit D 25-OH Tot 39.8 >30 ng/mL Health Based Reference Values* < 20 ng/mL Deficient 20-30 ng/mL Insufficient > 30 ng/mL Sufficient Assessment and Plan Assessment & Plan (1) Dyslipidemia: Code(s): E78.5 - Hyperlipidemia, unspecified Plan: Continue with simvastatin 40 mg at bedtime together with the [place] 3 fatty acid supplements a 1000 mg twice a day. (2) Essential hypertension: Code(s): I10 - Essential (primary) hypertension Plan: Blood pressure still not at goal, continued on valsartan-HCTZ and atenolol at the same dose, and added amlodipine 5 mg to matt 1 tablet at night with supper. Check blood pressure with nurse navigator in 2 weeks. See me back for follow-up in 3 months (3) Type 2 diabetes mellitus without complication, without long-term current use of insulin: Code(s): E11.9 - Type 2 diabetes mellitus without complications Plan: Hemoglobin A1c at 7%, unchanged from previous, reinforced importan of following recommended diet and get regular exercise. Schedule follow-up in 3 months after fasting labs done. Up-to-date with her diabetes eye exam Medications: New amlodipine take at night with supper 5 mg PO DAILY 30 tabs 0RF Coding Level of Care Code Tele Est Pt Level 4 (44926) Complex EM visit Add On G2211 Diagnoses Dyslipidemia E78.5 Essential hypertension I10 Type 2 diabetes mellitus without complication, without long-term current use of insulin E11.9
== END 2024-01-04 14:51 | disposition home or self-care (01) ==
LOC: HO.HMCC 11:46
PROVIDERS: PCP Internal Medicine; Visit Provider Internal Medicine
DX: E78.5 Hyperlipidemia, unspecified (principal); I10 Essential (primary) hypertension; E11.69 Type 2 diabetes mellitus with other specified complication

== ENCOUNTER → 2024-01-04 11:46 | Outpatient (BNVA) | payer MEDICARE, SELFPAY | PROVIDERS: PCP Internal Medicine; Visit Provider Internal Medicine ==

== ENCOUNTER → 2024-01-18 09:05 | Outpatient (BNVA) | payer MEDICARE, SELFPAY | PROVIDERS: PCP Internal Medicine ==

== ENCOUNTER → 2024-01-25 08:47 | Outpatient (BNVA) | payer MEDICARE, SELFPAY | PROVIDERS: PCP Internal Medicine ==

== ENCOUNTER 2024-05-27 09:02 | Outpatient (AMB) | payer MEDICARE, SELFPAY ==
--- NOTE | 2024-05-27 09:41 | MHC.PC.OV ---
Vital Signs 05/27/24 09:45 Height 5 ft 4 in Weight 212 lb BMI 36.4 BP 136/66 Blood Pressure Location Rt brachial Position Sitting Respiration 16 Pulse 70 Pulse Source Pulse Oximeter Temp 98.0 F Temp Source Oral Pulse Oximetry (%) 98 Oxygen Delivery Method Room Air Intake Visit Reasons: 3 month fu med review Intake Note: Pt is here today for her 3mo. f/u meds Allergies lisinopril [LISINOPRIL] Adverse Reaction (Intermediate, Verified 05/27/24 09:50) TACHYCARDIA moxifloxacin [From VIGAMOX] Adverse Reaction (Intermediate, Verified 05/27/24 09:50) increased eye irritation BANDAIDS Allergy (Mild, Uncoded 05/27/24 09:50) RASH Medication List - Last Reconciled 05/27/24 by Dorene Martinez MD amlodipine 2.5 mg (1/2 x 5 mg) PO DAILY aspirin (Adult Low Dose Aspirin) 81 mg PO DAILY atenolol 50 mg PO BID calcium carbonate 390 mg PO DAILY cholecalciferol (vitamin D3) 25 mcg PO DAILY letrozole 2.5 mg PO Q24H omega-3 fatty acids (Fish Oil Concentrate) 1,000 mg PO BID simvastatin 40 mg PO BEDTIME valsartan-hydrochlorothiazide 160-25 mg 1 tab PO DAILY Tobacco use date assessed: 05/27/24 Fall risk assessment: No Falls in past year Last assessed Fall Risk: 05/27/24 Dental Screening Dental Screen Date: 05/27/24 Did you have a dental visit in the last 12 months?: Yes Did you have a dental problem in the last 6 months where you did not have access to dental care?: Yes Was dental information given to patient?: Patient has dentist HPI 3 month fu med review HPI Details 79-year-old lady with past medical history significant for diabetes mellitus, hypertension, dyslipidemia and history invasive ductal carcinoma breast left, here today for follow-up. Has been compliant with taking her medications, but admits to not fully compliant with adhering to diet or getting regular exercise. [facility] Medical History History of invasive ductal carcinoma of breast Hematoma Invasive ductal carcinoma of left breast, stage 1 Type 2 diabetes mellitus without complication, without long-term current use of insulin Menopause Dyslipidemia Essential hypertension Surgical History H/O left breast biopsy History of colonoscopy History of tonsillectomy Family History Mother Breast cancer Generalized anxiety disorder Brother No problems noted. Son No problems noted. Daughter No problems noted. Paternal Grandmother Diabetes mellitus Father Diabetes mellitus Other Mental health disorder Social History Household Members: Friend(s) Housing: Condominium Are you a primary transition of care specialist to a significant other at home: No Do you presently have visiting nurse or other home services: No Alcohol intake: never Patient Tobacco Use Status: Never used Tobacco e-Cigarette/Vaping Use: Never Used Second Hand Smoke Exposure: No (as a child ) service: No Current occupational status: retired Cognitive needs: No Hearing needs: No Vision needs: Yes Female Reproductive History Menstrual Age of Menarche: 12 Questionnaire PHQ-9 Over the last 2 weeks, how often have you been bothered by any of the following problems? 1. Little interest or pleasure in doing things: not at all 2. Feeling down, depressed, or hopeless: not at all 3. Trouble falling or staying asleep, or sleeping too much: not at all 4. Feeling tired or having little energy: not at all 5. Poor appetite or overeating: not at all 6. Feeling bad about yourself - or that you are a failure or have let yourself or your family down: not at all 7. Trouble concentrating on things, such as reading the newspaper or watching television: not at all 8. Moving or speaking so slowly that other people could have noticed. Or the opposite - being so fidgety or restless that you have been moving around a lot more than usual: not at all 9. Thoughts that you would be better off or of hurting yourself in some way: not at all Total score: 0 Depression Screening Interpretation: Negative Depression Screening Done: Yes 91212 - PHQ-9 Billing: Yes Source: Developed by Drs. Mahendra Astudillo, Leti Perez, Ernie Oliver and colleagues, with an educational penny from [employer]. Thrive Questionnaire Date Thrive assessed: 05/27/24 I am a: Patient What is your living situation today?: I have a steady place to live Within the past 12 months, did the food you bought not last and you didn't have the money to get more?: Never true Within the past 12 months, did you worry whether your food would run out before you got money to buy more?: Never true Do you have trouble paying for medicines?: No Do you have trouble getting transportation to medical appointments?: No Do you have trouble paying your heating and electricity bill?: No Do you have trouble taking care of your child, family member or friend?: No Do you have trouble with day-to-day activities such as bathing, preparing meals, shopping, managing finances, etc.?: No Are you currently unemployed and looking for a job?: No Are you interested in more education?: No Please select the resources that you would like help with: None Currently or been in a relationship where the following occur: No concerns reported THRIVE Score: 0 AUDIT C Alcohol Use Questionnaire (AUDIT-C) 1. How often do you have a drink containing alcohol?: Never Total Score: 0 DRISS-7 AMB Questionnaire DRISS-7 Date DRISS - 7 assessed: 05/27/24 Feeling nervous, anxious, or on edge: 0 = Not at all Not being able to stop or control worryin = Not at all Worrying too much about different things: 1 = Several days Trouble relaxin = Not at all Being so restless that it is hard to sit still: 0 = Not at all Becoming easily annoyed or irritable: 0 = Not at all Feeling afraid as if something awful might happen: 0 = Not at all Total DRISS-7 score (0-4 normal; 5-9 mild; 10-14 moderate; 15-21 severe): 1 Source: Developed by Drs. Mahendra Astudillo, Leti Perez, Ernie Oliver and colleagues, with an educational penny from [employer]. DRISS-7 Assessment Billing DRISS-7 Assessment Tool: DRISS-7 Assessment 44027 Review of Systems Const Denies chills and Denies fever(s) ENT Reports no additional complaints Card Denies chest pain, Denies dyspnea and Denies dyspnea on exertion Resp Denies cough, Denies dyspnea and Denies dyspnea on exertion GI Denies hematochezia and Denies change in bowel habits Denies hematuria Musc Denies back pain Neuro Denies focal weakness and Denies convulsions Psych Denies depression and Denies mood swings Endo Reports no additional complaints Vitaliy/Lymph Reports no additional complaints Aller/Immun Reports no additional complaints Physical exam (Primary Care) Vital Signs: Last Vital Signs Temp 98.0 F 05/27/24 09:45 Pulse 70 05/27/24 09:45 Resp 16 05/27/24 09:45 BP 136/66 05/27/24 09:45 Pulse Ox 98 05/27/24 09:45 Oxygen Delivery Method Room Air 05/27/24 09:45 BMI result Body Mass Index 36.4 Tobacco/Smoking Status: Tobacco use Status Tobacco use date assessed 05/27/24 05/27/24 09:52 Patient Tobacco Use Status Never used Tobacco 05/27/24 09:43 e-Cigarette/Vaping Use Never Used 05/27/24 09:43 PHQ-9: PHQ-9 Score PHQ-9: Total score 0 05/27/24 10:12 Depression Screening Interpretation: Negative Thrive Assessment: Date of Thrive Assessment Date Thrive assessed 05/27/24 05/27/24 09:52 Currently or been in a relationship where the following occur: No concerns reported Const General: cooperative, comfortable and no acute distress Orientation/consciousness: patient oriented x3 HENMT Ears: hearing grossly normal bilaterally and external ears normal General nose exam: Normal external nose present Mouth: Normal oral and palatal mucosa present, oropharynx normal and moist mucous membranes Eyes General: appearance normal, both eyes and all related structures Conjunctivae: conjunctivae normal Pupils: Equal, round and reactive pupils present EOM: EOMs intact bilaterally Neck Neck: Yes full ROM, Yes no lymphadenopathy and Yes supple Chest Other: Mastectomy scar on left Resp Effort & Inspection: normal respiratory effort and able to speak in complete sentences Auscultation: clear to auscultation bilaterally Cardio Rate: regular rate Rhythm: regular rhythm Heart sounds: S1 normal heart sound present and S2 normal heart sound present GI Inspection: Yes normal to inspection Palpation (GI): Soft to palpation, nontender and no masses Auscultation: normal bowel sounds Back/Spine/Pelvis Back: No back tenderness Skin General skin exam: no rashes or lesions noted Neuro General: patient oriented x3, gait normal, tone normal, moves all extremities, Normal light touch and pain sensation and no focal motor deficits Cranial nerves: Yes Equal, round and reactive pupils present Cognition (Neuro): normal cognition Gait exam (Neuro): Normal gait present Motor exam (neuro): 5/5 motor strength present throughout Extrem General: Yes full ROM, Yes no joint enlargement, Yes no pedal edema and Yes normal gait Psych Appearance: grossly normal Mental Status: mental status grossly normal Speech and movement: Normal speech and movement present Affect: normal affect Attitude: cooperative Thought process: Normal thought process present Coding Level of Care Code Est Pt Level 4 (97993) Complex EM visit Add On G2211 Diagnoses Essential hypertension I10 Dyslipidemia E78.5 Type 2 diabetes mellitus without complication, without long-term current use of insulin E11.9 History of invasive ductal carcinoma of breast Z85.3 Additional Codes PHQ-9 - 97733 - PHQ-9 Billing: Yes ([id number]) DRISS-7 Assessment Billing - DRISS-7 Assessment Tool: DRISS-7 Assessment 36670 ([id number]) Assessment & Plan Assessment & Plan (1) Essential hypertension: Code(s): I10 - Essential (primary) hypertension Category: Medical Plan: Continue with valsartan hydrochlorothiazide 160-25 mg 1 tablet daily and atenolol 50 mg 1 tablet twice a day and amlodipine 2.5 mg daily (2) Dyslipidemia: Code(s): E78.5 - Hyperlipidemia, unspecified Category: Medical Plan: Fasting lipids ordered. Continue simvastatin 40 mg at bedtime (3) Type 2 diabetes mellitus without complication, without long-term current use of insulin: Code(s): E11.9 - Type 2 diabetes mellitus without complications Category: Medical Plan: Hemoglobin A1c and basic metabolic panel ordered, reinforced importance of following healthy eating habits and getting regular exercise. (4) History of invasive ductal carcinoma of breast: Code(s): Z85.3 - Personal history of malignant neoplasm of breast Category: Medical Plan: Currently on letrozole followed by oncology clinic at [place] Orders: Orders Aspartate Amino Transferase 05/27/24 E11.9 - Type 2 diabetes mellitus without complications, E78.5 - Hyperlipidemia, unspecified, I10 - Essential (primary) hypertension, Z78.0 - Asymptomatic menopausal state, Z85.3 - Personal history of malignant neoplasm of breast Basic Metabolic Panel Fasting 05/27/24 E11.9 - Type 2 diabetes mellitus without complications, E78.5 - Hyperlipidemia, unspecified, I10 - Essential (primary) hypertension, Z78.0 - Asymptomatic menopausal state, Z85.3 - Personal history of malignant neoplasm of breast Lipid Panel 05/27/24 E11.9 - Type 2 diabetes mellitus without complications, E78.5 - Hyperlipidemia, unspecified, I10 - Essential (primary) hypertension, Z78.0 - Asymptomatic menopausal state, Z85.3 - Personal history of malignant neoplasm of breast Microalbumin, Random (w Creat) 05/27/24 E11.9 - Type 2 diabetes mellitus without complications, E78.5 - Hyperlipidemia, unspecified, I10 - Essential (primary) hypertension, Z78.0 - Asymptomatic menopausal state, Z85.3 - Personal history of malignant neoplasm of breast Hemoglobin A1c 05/27/24 E11.9 - Type 2 diabetes mellitus without complications, E78.5 - Hyperlipidemia, unspecified, I10 - Essential (primary) hypertension, Z78.0 - Asymptomatic menopausal state, Z85.3 - Personal history of malignant neoplasm of breast Alanine Aminotransferase 05/27/24 E11.9 - Type 2 diabetes mellitus without complications, E78.5 - Hyperlipidemia, unspecified, I10 - Essential (primary) hypertension, Z78.0 - Asymptomatic menopausal state, Z85.3 - Personal history of malignant neoplasm of breast Vitamin D 25-OH Total 05/27/24 E11.9 - Type 2 diabetes mellitus without complications, E78.5 - Hyperlipidemia, unspecified, I10 - Essential (primary) hypertension, Z78.0 - Asymptomatic menopausal state, Z85.3 - Personal history of malignant neoplasm of breast Medications: New amlodipine 2.5 mg PO DAILY 90 tabs 1RF Discontinued amlodipine take at night with supper Discontinued Reason: Doctor's Order 2.5 mg (1/2 x 5 mg) PO DAILY 30 tabs 1RF
[2024-05-27 09:45] VITALS: BP 136/66; PULSE 70; RESP 16; TEMP 36.7; O2SAT 98; BMI 36.4
== END 2024-05-27 10:15 | disposition home or self-care (01) ==
PROVIDERS: PCP Internal Medicine; Visit Provider Internal Medicine
DX: I10 Essential (primary) hypertension (principal); E78.5 Hyperlipidemia, unspecified; E11.9 Type 2 diabetes mellitus without complications; Z85.3 Personal history of malignant neoplasm of breast

== ENCOUNTER → 2024-05-27 09:02 | Outpatient (BNVA) | payer MEDICARE, SELFPAY | PROVIDERS: PCP Internal Medicine; Visit Provider Internal Medicine | DX: I10 Essential (primary) hypertension (principal); E78.5 Hyperlipidemia, unspecified; E11.9 Type 2 diabetes mellitus without complications; Z85.3 Personal history of malignant neoplasm of breast | CPT/HCPCS: 96127; 99212 ==

== ENCOUNTER 2024-06-18 09:46 | Outpatient (AMB) | payer MEDICARE, SELFPAY ==
--- NOTE | 2024-06-18 09:59 | MHC.OFFVIS ---
Vital Signs 06/18/24 10:10 Height 5 ft 4 in Weight 212 lb 0.015 oz BMI 36.4 Intake Visit Reasons: 6 month mammo follow up visit Intake Note: This patient presents for six month breast examination assessment. Pt c/o; reports no breast complaints at this time. Shank Cutter Required: No Accompanied by: Self / Same As Patient Allergies lisinopril [LISINOPRIL] Adverse Reaction (Intermediate, Verified 06/18/24 10:11) TACHYCARDIA moxifloxacin [From VIGAMOX] Adverse Reaction (Intermediate, Verified 06/18/24 10:11) increased eye irritation BANDAIDS Allergy (Mild, Uncoded 06/18/24 10:11) RASH Medication List - Last Reconciled 06/18/24 by Abner Lee MD amlodipine 2.5 mg PO DAILY aspirin (Adult Low Dose Aspirin) 81 mg PO DAILY atenolol 50 mg PO BID calcium carbonate 390 mg PO DAILY cholecalciferol (vitamin D3) 25 mcg PO DAILY letrozole 2.5 mg PO Q24H omega-3 fatty acids (Fish Oil Concentrate) 1,000 mg PO BID simvastatin 40 mg PO BEDTIME valsartan-hydrochlorothiazide 160-25 mg 1 tab PO DAILY HPI HPI 6 month mammo follow up visit: Details: She is here for follow-up after mastectomy of the left breast last January, for a T1 N0 invasive ductal carcinoma. She continues do well. She denies significant complaints. She just had a mammogram for the right breast last week. She is on Arimidex. She follows Dr. Hermosillo for this. Her last mammogram for the contralateral right breast was in November, and this was unremarkable. She denies significant complaints. She feels well overall. She denies any changes in her health. [facility] Medical History History of invasive ductal carcinoma of breast Hematoma Invasive ductal carcinoma of left breast, stage 1 Type 2 diabetes mellitus without complication, without long-term current use of insulin Menopause Dyslipidemia Essential hypertension Surgical History H/O left breast biopsy History of colonoscopy History of tonsillectomy Family History Mother Breast cancer Generalized anxiety disorder Brother No problems noted. Son No problems noted. Daughter No problems noted. Paternal Grandmother Diabetes mellitus Father Diabetes mellitus Other Mental health disorder Social History Household Members: Friend(s) Housing: Condominium Are you a primary hospice care consultant to a significant other at home: No Do you presently have visiting nurse or other home services: No Alcohol intake: never Patient Tobacco Use Status: Never used Tobacco e-Cigarette/Vaping Use: Never Used Second Hand Smoke Exposure: No (as a child ) service: No Current occupational status: retired Cognitive needs: No Hearing needs: No Vision needs: Yes Female Reproductive History Menstrual Age of Menarche: 12 Review of Systems Const Denies chills and Denies fever(s) Card Denies chest pain Resp Denies cough GI Denies abdominal pain Denies difficulty voiding Physical Exam Const General: comfortable and no acute distress Nutritional Appearance: obese Chest Other: Right breast with no palpable breast masses, no axillary lymphadenopathy, Left mastectomy site with a any palpable chest wall masses, no axillary lymphadenopathy Resp Effort & Inspection: normal respiratory effort Cardio Rate: regular rate Assessment & Plan Assessment & Plan (1) History of invasive ductal carcinoma of breast: Code(s): Z85.3 - Personal history of malignant neoplasm of breast Category: Medical Plan: She continues to do well. Examination of the right breast does not reveal any palpable breast masses. Her mastectomy site on the left also does not show any new masses. She has no axillary lymphadenopathy. Her mammogram for the right breast last 12/04/2023 was unremarkable I reminded her about her mammograms every year. I also told her to continue to follow up with Dr. Hermosillo. I will see her in the office in about 6 months. Coding Level of Care Code Est Pt Level 3 (04867) Complex EM visit Add On G2211 Diagnoses History of invasive ductal carcinoma of breast Z85.3
[2024-06-18 10:10] VITALS: BMI 36.4
== END 2024-06-18 10:21 | disposition home or self-care (01) ==
PROVIDERS: PCP Internal Medicine; Visit Provider Surgery
DX: Z85.3 Personal history of malignant neoplasm of breast (principal)
CPT/HCPCS: 99213; G2211

== ENCOUNTER → 2024-06-18 09:46 | Outpatient (BNVA) | payer MEDICARE, SELFPAY | PROVIDERS: PCP Internal Medicine; Visit Provider Surgery | DX: Z85.3 Personal history of malignant neoplasm of breast (principal) | CPT/HCPCS: 99212 ==

== ENCOUNTER 2024-07-11 09:15 | Outpatient (REF) | payer MEDICARE, SELFPAY ==
[2024-07-11 10:38] LABS: Estimated Average Glucose 154 mg/dL
[2024-07-11 11:02] LABS: Creatinine Urine 105.91 mg/dL; Microalbum/Creatinine Ratio Ur 51.9 ug/mg cr (<30)
[2024-07-11 11:24] LABS: Alanine Aminotransferase 14 U/L (0-31); Anion Gap 10 (12-20); Aspartate Amino Transferase 24 U/L (5-31); Blood Urea Nitrogen 18 mg/dL (9-16); Calcium 9.8 mg/dL (8.4-10.2); Carbon Dioxide 29 mmol/L (22-29); Chloride 102 mmol/L (96-108); Cholesterol 150 mg/dL (<200); Estimated Glomerular Filt Rate > 60; Glucose Fasting 151 mg/dL (60-99); HDL Cholesterol 39 mg/dL (>40); LDL Cholesterol Calculated 82 mg/dL (<100); Potassium 4.5 mmol/L (3.3-5.1); Sodium 136 mmol/L (135-145); Triglycerides 148 mg/dL (<150); Vitamin D 25-OH Total 35.2 ng/mL (>30)
== END 2024-07-11 09:16 | disposition home or self-care (01) ==
LOC: HO.HMGCLDS 09:15
PROVIDERS: PCP Internal Medicine; Visit Provider Internal Medicine
DX: I10 Essential (primary) hypertension (principal); E78.5 Hyperlipidemia, unspecified; Z78.0 Asymptomatic menopausal state; E11.9 Type 2 diabetes mellitus without complications; Z85.3 Personal history of malignant neoplasm of breast
CPT/HCPCS: 36415; 80048; 80061; 82043; 82306; 82570; 83036; 84450; 84460

== ENCOUNTER 2024-08-06 07:55 | Outpatient (AMB) | payer MEDICARE, SELFPAY ==
--- NOTE | 2024-08-06 08:08 | A.OFFPC_ITS ---
Vital Signs 08/06/24 08:09 Height 5 ft 1 in Weight 210 lb BMI 39.7 BP 124/70 Blood Pressure Location Rt brachial Position Sitting Respiration 16 Pulse 62 Pulse Source Pulse Oximeter Temp 97.8 F Temp Source Oral Pulse Oximetry (%) 98 Oxygen Delivery Method Room Air Intake Visit Reasons: TCM Allergies lisinopril [LISINOPRIL] Adverse Reaction (Intermediate, Verified 08/06/24 08:21) TACHYCARDIA moxifloxacin [From VIGAMOX] Adverse Reaction (Intermediate, Verified 08/06/24 08:21) increased eye irritation BANDAIDS Allergy (Mild, Uncoded 08/06/24 08:21) RASH Medication List - Last Reconciled 08/06/24 by Dorene Martinez MD atenolol 50 mg PO BID calcium carbonate 390 mg PO DAILY cholecalciferol (vitamin D3) 25 mcg PO DAILY letrozole 2.5 mg PO Q24H omega-3 fatty acids (Fish Oil Concentrate) 1,000 mg PO BID simvastatin 40 mg PO BEDTIME valsartan-hydrochlorothiazide 160-25 mg 1 tab PO DAILY Tobacco use date assessed: 08/06/24 Fall risk assessment: No Falls in past year Last assessed Fall Risk: 08/06/24 Dental Screening Dental Screen Date: 08/06/24 Did you have a dental visit in the last 12 months?: Yes Did you have a dental problem in the last 6 months where you did not have access to dental care?: No Was dental information given to patient?: Patient has dentist HPI TCM HPI Details 9-year-old lady with history of breast c ancer currently in remission and on letrozole, hypertension, hyperlipidemia, here today for TCM. She presented to the ER 08/02/2024 after a syncopal episode, which was felt to be likely vasovagal in nature. Patient was noted to be orthostatic during her stay at the ER. Reported a decreased p.o. intake prior to going out with friends and also taking hydrochlorothiazide early that morning as well. EKG was in normal sinus rhythm with a an ankle teeth right bundle branch block left axis deviation, low ischemic changes, no arrhythmia seen, troponin negative, patient without any complain of chest pain. During her hospital stay there was no orthostasis noted with complete resolution of symptoms. She was discharged home on atenolol, hydrochlorothiazide and valsartan, amlodipine was held on discharge and advised to stay well-hydrated . Hemoglobin A1c during admission was 7.4, noted to be mildly anemic with a hemoglobin of 11.3, continued on simvastatin for hyperlipidemia. Feels well at present time, with no further episodes of dizziness or fainting spells.. Blood pressure today within normal limits [facility] Medical History History of invasive ductal carcinoma of breast Hematoma Invasive ductal carcinoma of left breast, stage 1 Type 2 diabetes mellitus without complication, without long-term current use of insulin Menopause Dyslipidemia Essential hypertension Surgical History H/O left breast biopsy History of colonoscopy History of tonsillectomy Family History Mother Breast cancer Generalized anxiety disorder Brother No problems noted. Son No problems noted. Daughter No problems noted. Paternal Grandmother Diabetes mellitus Father Diabetes mellitus Other Mental health disorder Social History Household Members: Friend(s) Housing: Condominium Are you a primary care aide to a significant other at home: No Do you presently have visiting nurse or other home services: No Alcohol intake: never Patient Tobacco Use Status: Never used Tobacco e-Cigarette/Vaping Use: Never Used Second Hand Smoke Exposure: No (as a child ) service: No Current occupational status: retired Cognitive needs: No Hearing needs: No Vision needs: Yes Female Reproductive History Menstrual Age of Menarche: 12 Questionnaire PHQ-9 Over the last 2 weeks, how often have you been bothered by any of the following problems? Depression Screening Interpretation: Negative Depression Screening Done: Yes Source: Developed by Drs. Mahendra Astudillo, Leti Perez, Ernie Oliver and colleagues, with an educational penny from [employer]. Thrive Questionnaire Date Thrive assessed: 05/27/24 I am a: Patient What is your living situation today?: I have a steady place to live Within the past 12 months, did the food you bought not last and you didn't have the money to get more?: Never true Within the past 12 months, did you worry whether your food would run out before you got money to buy more?: Never true Do you have trouble paying for medicines?: No Do you have trouble getting transportation to medical appointments?: No Do you have trouble paying your heating and electricity bill?: No Do you have trouble taking care of your child, family member or friend?: No Do you have trouble with day-to-day activities such as bathing, preparing meals, shopping, managing finances, etc.?: No Are you currently unemployed and looking for a job?: No Are you interested in more education?: No Please select the resources that you would like help with: None Currently or been in a relationship where the following occur: No concerns reported THRIVE Score: 0 DRISS-7 AMB Questionnaire DRISS-7 Date DRISS - 7 assessed: 05/27/24 Source: Developed by Drs. Mahendra Astudillo, Leti Perez, Ernie Oliver and colleagues, with an educational penny from [employer]. Review of Systems Const Denies chills and Denies fever(s) Eyes Denies change in vision ENT Reports no additional complaints Card Denies chest pain, Denies dyspnea and Denies dyspnea on exertion Resp Denies cough, Denies dyspnea and Denies dyspnea on exertion GI Denies hematochezia and Denies change in bowel habits Denies hematuria Musc Denies back pain Neuro Denies focal weakness and Denies convulsions Psych Denies depression and Denies mood swings Endo Reports no additional complaints Vitaliy/Lymph Reports no additional complaints Aller/Immun Reports no additional complaints Physical exam (Primary Care) Vital Signs: Last Vital Signs Temp 97.8 F 08/06/24 08:09 Pulse 62 08/06/24 08:09 Resp 16 08/06/24 08:09 BP 124/70 08/06/24 08:09 Pulse Ox 98 08/06/24 08:09 Oxygen Delivery Method Room Air 08/06/24 08:09 BMI result Body Mass Index 39.7 Tobacco/Smoking Status: Tobacco use Status Tobacco use date assessed 08/06/24 08/06/24 08:10 Patient Tobacco Use Status Never used Tobacco 08/06/24 08:10 e-Cigarette/Vaping Use Never Used 08/06/24 08:10 Depression Screening Interpretation: Negative Thrive Assessment: Date of Thrive Assessment Date Thrive assessed 05/27/24 08/06/24 08:10 Currently or been in a relationship where the following occur: No concerns reported Const General: cooperative, comfortable and no acute distress Orientation/consciousness: patient oriented x3 [facility] Ears: hearing grossly normal bilaterally and external ears normal General nose exam: Normal external nose present Mouth: Normal oral and palatal mucosa present, oropharynx normal and moist mucous membranes Eyes General: appearance normal, both eyes and all related structures Conjunctivae: conjunctivae normal Pupils: Equal, round and reactive pupils present EOM: EOMs intact bilaterally Neck Neck: Yes full ROM, Yes no lymphadenopathy and Yes supple Chest Other: Mastectomy scar on left Resp Effort & Inspection: normal respiratory effort and able to speak in complete sentences Auscultation: clear to auscultation bilaterally Cardio Rate: regular rate Rhythm: regular rhythm Heart sounds: S1 normal heart sound present and S2 normal heart sound present Bruits: no carotid bruits GI Inspection: Yes normal to inspection Palpation (GI): Soft to palpation, nontender and no masses Auscultation: normal bowel sounds Back/Spine/Pelvis Back: No back tenderness Skin General skin exam: no rashes or lesions noted Neuro General: patient oriented x3, gait normal, tone normal, moves all extremities, Normal light touch and pain sensation and no focal motor deficits Cranial nerves: Yes Equal, round and reactive pupils present Cognition (Neuro): normal cognition Gait exam (Neuro): Normal gait present Motor exam (neuro): 5/5 motor strength present throughout Extrem General: Yes full ROM, Yes no joint enlargement, Yes no pedal edema and Yes normal gait Psych Appearance: grossly normal Mental Status: mental status grossly normal Speech and movement: Normal speech and movement present Affect: normal affect Attitude: cooperative Thought process: Normal thought process present Coding Level of Care Code TCM High MDM <= 7 Days Diagnoses History of syncope Z87.898 Diabetes mellitus with hyperglycemia E11.65 Dyslipidemia E78.5 Essential hypertension I10 History of invasive ductal carcinoma of breast Z85.3 Assessment & Plan Assessment & Plan (1) History of syncope: Code(s): Z87.898 - Personal history of other specified conditions Plan: No further episodes since her discharge, ordered 3 day Holter monitor, complete echocardiogram and carotid bilateral ultrasound. Patient advised to call us back if after 10 days she does not receive any appointment dates for these tests done were ordered (2) Diabetes mellitus with hyperglycemia: Code(s): E11.65 - Type 2 diabetes mellitus with hyperglycemia Category: Medical Plan: Hemoglobin A1c now at 7.3%, will start on metformin ER 500 mg per tablet to take 1 tablet at night with supper time patient advised to take it with food, reinforced importance of following a low cholesterol diabetic diet and getting regular exercise reminded to get her diabetes eye exam done once a year, will have her see nurse navigator for guidance with regards to check her blood sugar levels and diabetic teaching in a week will see her back for follow-up in October 2024 after fasting labs done (3) Dyslipidemia: Code(s): E78.5 - Hyperlipidemia, unspecified Category: Medical Plan: Continued on simvastatin 40 mg at bedtime. Repeat fasting lipid panel in October 2024 (4) Essential hypertension: Code(s): I10 - Essential (primary) hypertension Category: Medical Plan: Blood pressure at goal of less than 130/80. Continue atenolol 50 mg 1 tablet twice a day and valsartan HCTZ 160-25 mg 1 tablet in the morning. Reinforced importance of following a low sodium diet, getting regular exercise, and lowering stress levels. Schedule an appointment to see nurse navigator in a week to check blood pressure (5) History of invasive ductal carcinoma of breast: Code(s): Z85.3 - Personal history of malignant neoplasm of breast Category: Medical Plan: Currently on letrozole, followed by Oncology Orders: Orders US carotid duplex BI Today E78.5 - Hyperlipidemia, unspecified, I10 - Essential (primary) hypertension, Z87.898 - Personal history of other specified conditions CA echo transthoracic complete Today E78.5 - Hyperlipidemia, unspecified, I10 - Essential (primary) hypertension, Z87.898 - Personal history of other specified conditions ECG 3 day holter monitor Today E78.5 - Hyperlipidemia, unspecified, I10 - Essential (primary) hypertension, Z87.898 - Personal history of other specified conditions Microalbumin, Random (w Creat) 10/14/24 E11.65 - Type 2 diabetes mellitus with hyperglycemia, E78.5 - Hyperlipidemia, unspecified, I10 - Essential (primary) hypertension, Z78.0 - Asymptomatic menopausal state Vitamin D 25-OH Total 10/14/24 E11.65 - Type 2 diabetes mellitus with hyperglycemia, E78.5 - Hyperlipidemia, unspecified, I10 - Essential (primary) hypertension, Z78.0 - Asymptomatic menopausal state Medications: New metformin ER 500 mg PO QPM 30 tabs 2RF blood sugar diagnostic Check fasting blood sugar once a day before meal 50 ea 3RF E11.65 - Type 2 diabetes mellitus with hyperglycemia blood-glucose meter As directed 1 ea 0RF E11.65 - Type 2 diabetes mellitus with hyperglycemia lancets (Comfort EZ Lancets) Check fasting glucose once a day before meal 100 ea 0RF E11.65 - Type 2 diabetes mellitus with hyperglycemia
[2024-08-06 08:09] VITALS: BP 124/70; PULSE 62; RESP 16; TEMP 36.6; O2SAT 98; BMI 39.7
== END 2024-08-06 08:53 | disposition home or self-care (01) ==
LOC: HO.HMCC 07:56
PROVIDERS: PCP Internal Medicine; Visit Provider Internal Medicine
DX: E11.65 Type 2 diabetes mellitus with hyperglycemia (principal); Z87.898 Personal history of other specified conditions; E78.5 Hyperlipidemia, unspecified; I10 Essential (primary) hypertension; Z85.3 Personal history of malignant neoplasm of breast

== ENCOUNTER → 2024-08-06 07:55 | Outpatient (BNVA) | payer MEDICARE, SELFPAY | PROVIDERS: PCP Internal Medicine; Visit Provider Internal Medicine | DX: E11.65 Type 2 diabetes mellitus with hyperglycemia (principal); E78.5 Hyperlipidemia, unspecified; I10 Essential (primary) hypertension; Z87.898 Personal history of other specified conditions; Z85.3 Personal history of malignant neoplasm of breast | CPT/HCPCS: 99212 ==

== ENCOUNTER → 2024-08-08 09:55 | Outpatient (BNVA) | payer MEDICARE, SELFPAY | PROVIDERS: PCP Internal Medicine ==

== ENCOUNTER → 2024-08-15 08:43 | Outpatient (BNVA) | payer MEDICARE, SELFPAY | PROVIDERS: PCP Internal Medicine ==

== ENCOUNTER → 2024-08-29 09:33 | Outpatient (BNVA) | payer MEDICARE, SELFPAY | PROVIDERS: PCP Internal Medicine | DX: Z13.89 Encounter for screening for other disorder (principal) ==

== ENCOUNTER → 2024-09-19 08:42 | Outpatient (BNVA) | payer MEDICARE, SELFPAY | PROVIDERS: PCP Internal Medicine ==

== ENCOUNTER 2024-09-29 10:10 | Outpatient (REF) | payer MEDICARE, SELFPAY ==
--- NOTE | ~2024-09-29 | US_ITS ---
EXAMINATION: US EXTRACRANIAL CAROTID DUPLEX, BILATERAL CLINICAL INFORMATION: Syncope. Hypertension. Hyperlipidemia. COMPARISON: None available. TECHNIQUE: Real-time ultrasound and Doppler techniques (integrating B-mode 2-D vascular images, Doppler spectral analysis and color-flow Doppler imaging) were utilized to interrogate the extracranial carotid arteries, the vertebral arteries and proximal subclavian arteries bilaterally. The degree of stenosis is determined by criteria similar to NASCET. FINDINGS: Right Side: 1. There is no atherosclerotic plaque seen in the bifurcation/proximal ICA region. 2. The common carotid artery PSV proximally is 77 cm/s and distally 80 cm/s. 3. The proximal internal carotid artery velocities are 59 cm/s systolic and 9 cm/s diastolic. 4. The proximal external carotid artery PSV is 86 cm/s. 5. The vertebral artery shows antegrade flow. 6. The subclavian artery waveforms are triphasic.. ICAs/CCA ratio: 0.74. Left Side: 1. There is no atherosclerotic plaque seen in the bifurcation/proximal ICA region. 2. The common carotid artery PSV proximally is 75 cm/s and distally 104 cm/s. 3. The proximal internal carotid artery velocities are 71 cm/s systolic and 17 cm/s diastolic. 4. The proximal external carotid artery PSV is 99 cm/s. 5. The vertebral artery shows antegrade flow. 6. The subclavian artery waveforms are triphasic.. ICA/CC ratio: 0.69. US/US carotid duplex BI IMPRESSION: 1. RIGHT: No plaque. No hemodynamically significant stenosis by ultrasound criteria. 2. LEFT: No plaque. No hemodynamically significant stenosis by ultrasound criteria. Electronically signed by: Francisco Mendez MD 09/29/2024 11:01 AM EDT
--- NOTE | 2024-09-29 10:48 | CA_ITS ---
Transthoracic Echocardiogram Patient (Last, First, Middle): Vashti Cyr M Gender: Female Date of : 1945 Age: 79 Procedure Date: 09/29/2024 Procedure Type: Transthoracic Echocardiogram Location: OP Height: 162. cm Weight: 100.7 kg BSA: 2.04 m2 Heart Rate: 57 bpm BP: 165 / 80 mmHg Analyst [employer]: NICOLE Referring MD: Dorene Martinez MD Symptoms: Z87.898 - Personal history of other specified conditions Study Quality: Fair ECG Rhythm: Sinus Conclusions: - The left ventricular systolic function is normal. The visually estimated ejection fraction is between 55-60%. - There is moderately increased left ventricular wall thickness. - No obvious valvular pathology seen on this study. Findings Left Ventricle Normal left ventricular cavity size. There is moderately increased left ventricular wall thickness. The left ventricular systolic function is normal. The visually estimated ejection fraction is between 55-60%. There is no evidence of regional wall motion abnormalities. Diastolic function is normal for age. Right Ventricle Normal right ventricular cavity size and systolic function. Atria Both atria are normal in size. Aortic Valve There is a normal trileaflet aortic valve. There is no aortic valve stenosis. There is trace (trivial) aortic valve regurgitation. Mitral Valve There is mild mitral annular calcification. There is no mitral valve regurgitation. There is no mitral valve stenosis. Pulmonic Valve The pulmonic valve is likely normal. Tricuspid Valve There is mild tricuspid valve regurgitation. There is no evidence of pulmonary hypertension. Great Vessels The asc aorta is normal in size. Venous The inferior vena cava is normal in size and collapses greater than 50% with inspiration. Pericardium/Pleural There is no evidence of pericardial effusion. Prior Study Comparison No prior study available for comparison. Recommendations, Care & Conclusions No obvious valvular pathology seen on this study. Measurements 2D Linear Measurements IVSd: 0.92 0.6-0.9/0.6-1.0 cm LVIDd: 5.64 3.9-5.3/4.2-5.9 cm LVIDd Index: 2.76 2.4-3.2/2.2-3.1 cm/m2 LVIDs: 3.61 2.0-3.6 cm LVPWd: 1.17 0.7-1.1 cm LA Diam: 3.70 2.7-3.8/3.0-4.0 cm LAIDs Index: 1.81 1.5-2.3 cm/m2 LV Mass: 293.78 67-162/88-224 g LV Mass Index: 144.01 43-95/49-115 g/m2 LVOT Diam: 2.30 3.0+(-)1.3 cm 2D Systolic Function EF 4C: 59.10 >55% EF 2C: 66.60 >55% EF BiP: 63.00 >55% Mitral Valve MV Pk E: 0.51 MV PK A: 0.81 MV Decel Time: 398.00 E/A: 0.60 E'Lateral: 6.20 E'Medial: 4.90 E/E' Med: 10.40 E/E' Lat: 8.20 PHT: 116.00 MVA PHT: 1.90 Decel Meigs: 1.28 Aortic Valve AoV Pk Estev[place]: 1.36 AoV Mn [place]: 0.91 AoV VTI: 0.32 AoV Pk Grad: 7.00 Aov Mn Grad: 4.00 BRIAN Cont.VTI: 2.79 AI Pk Estev[place]: 4.16 AI Meigs: 1.79 LVOT LVOT Pk [place]ev[place]: 0.84 LVOT Mn [place]ev[place]: 0.58 LVOT VTI: 0.21 LVOT Pk Grad: 3.00 LVOT Mn Grad: 2.00 LVOT Diam: 2.30 LVOT Area: 4.15 Diastolic Function MV Pk E: 0.51 MV Pk A: 0.81 E/A: 0.60 E'Medial: 4.90 E/E' Med: 10.40 E' Laterial: 6.20 E/E' Lat: 8.20 Right Ventricle TAPSE (mm): 25.20 TVS' [place]: 12.80 Tricuspid Valve TR Pk Estevan: 2.25 TR Pk Grad: 20.00 RA Press: 3.00 RVSP: 23.00 Great Vessels Aorta Sinus of Valsalva: 3.30 2.0-3.5 cm Ao Asc: 3.80 2.1-3.4 cm Ao Arch: 2.50 Pulmonary Valve PV Pk Estevan: 0.76 Peak PV Grad: 2.00 Updated in Other Vendor System with Status of Final Garrett Parada MD electronically signed on 09/29/2024 4:37:18 PM with status of Final
--- NOTE | 2024-09-29 10:48 | HM_ITS ---
* Total monitoring time 3 days. * Underlying rhythm is sinus with an average rate of 59/Min. * Rare supraventricular ectopy. * Rare ventricular ectopy. Rare couplets. Isolated triplet. * Transient Mobitz type 1 second-degree AV block. * One patient marker used with PVC. MTDD
== END 2024-09-29 10:11 | disposition home or self-care (01) ==
LOC: HO.US 10:10
PROVIDERS: PCP Internal Medicine; Visit Provider Internal Medicine
DX: I44.1 Atrioventricular block, second degree (principal); E78.5 Hyperlipidemia, unspecified; I10 Essential (primary) hypertension; R55 Syncope and collapse
CPT/HCPCS: 93242; 93306; 93880

== ENCOUNTER → 2024-09-29 10:11 | Outpatient (BNV) | payer MEDICARE, SELFPAY | PROVIDERS: PCP Internal Medicine; Visit Provider Radiology Diagnostic Radiology | DX: R55 Syncope and collapse (principal); I10 Essential (primary) hypertension; E78.5 Hyperlipidemia, unspecified | CPT/HCPCS: 93880 ==

== ENCOUNTER → 2024-09-29 10:48 | Outpatient (BNV) | payer MEDICARE, SELFPAY | PROVIDERS: PCP Internal Medicine; Visit Provider Internal Medicine | DX: I51.7 Cardiomegaly (principal) | CPT/HCPCS: 93306 ==

== ENCOUNTER 2024-10-14 08:01 | Outpatient (REF) | payer MEDICARE, SELFPAY ==
[2024-10-14 10:39] LABS: Alanine Aminotransferase 13 U/L (0-31); Anion Gap 13 (12-20); Aspartate Amino Transferase 23 U/L (5-31); Blood Urea Nitrogen 23 mg/dL (9-16); Calcium 9.5 mg/dL (8.4-10.2); Carbon Dioxide 27 mmol/L (22-29); Chloride 96 mmol/L (96-108); Cholesterol 125 mg/dL (<200); Estimated Glomerular Filt Rate > 60; HDL Cholesterol 39 mg/dL (>40); Potassium 4.2 mmol/L (3.3-5.1); Sodium 132 mmol/L (135-145); Triglycerides 122 mg/dL (<150)
[2024-10-14 10:53] LABS: Hemoglobin A1C 148.3582 umol/L; Total Hemoglobin (HGBA1C) 3101.0387 umol/L
[2024-10-14 11:25] LABS: Microalbum/Creatinine Ratio Ur 18.3 ug/mg cr (<30)
== END 2024-10-14 08:02 | disposition home or self-care (01) ==
LOC: HO.HMGCLDS 08:01
PROVIDERS: PCP Internal Medicine; Visit Provider Internal Medicine
DX: E11.9 Type 2 diabetes mellitus without complications (principal); E78.5 Hyperlipidemia, unspecified; I10 Essential (primary) hypertension; Z78.0 Asymptomatic menopausal state; E11.65 Type 2 diabetes mellitus with hyperglycemia
CPT/HCPCS: 36415; 80048; 80061; 82043; 82306; 82570; 83036; 84450; 84460

== ENCOUNTER 2024-10-20 08:05 | Outpatient (AMB) | payer MEDICARE, SELFPAY ==
--- NOTE | 2024-10-20 08:13 | A.OFFPC_ITS ---
Vital Signs 10/20/24 08:14 10/20/24 09:11 Height 5 ft 1 in Weight 201 lb BMI 38.0 BP 144/70 H 135/80 Blood Pressure Location Rt brachial Rt brachial Position Sitting Sitting Respiration 15 Pulse 61 Pulse Source Pulse Oximeter Temp 97.8 F Temp Source Oral Pulse Oximetry (%) 97 Oxygen Delivery Method Room Air Intake Visit Reasons: 5m follow up Intake Note: Pt is here today for her 5 mo. f/u Allergies lisinopril (LISINOPRIL) Adverse Reaction (Intermediate, Verified 10/22/24 08:31) TACHYCARDIA moxifloxacin (From VIGAMOX) Adverse Reaction (Intermediate, Verified 10/22/24 08:31) increased eye irritation BANDAIDS Allergy (Mild, Uncoded 10/20/24 09:01) RASH Medication List - Last Reconciled 10/20/24 by Dorene Martinez MD atenolol 50 mg PO BID blood sugar diagnostic Check fasting blood sugar once daily blood-glucose meter As directed calcium carbonate 390 mg PO DAILY cholecalciferol (vitamin D3) 25 mcg PO DAILY lancets (Easy Touch Safety Lancets) Check blood sugar once daily lancets (FreeStyle Lancets) daily letrozole 2.5 mg PO Q24H metformin ER 500 mg PO QPM omega-3 fatty acids (Fish Oil Concentrate) 1,000 mg PO BID simvastatin 40 mg PO BEDTIME valsartan-hydrochlorothiazide 160-25 mg 1 tab PO DAILY Tobacco use date assessed: 10/20/24 Fall risk assessment: No Falls in past year Last assessed Fall Risk: 10/20/24 Dental Screening Dental Screen Date: 10/20/24 Did you have a dental visit in the last 12 months?: Yes Did you have a dental problem in the last 6 months where you did not have access to dental care?: No Was dental information given to patient?: Patient has dentist HPI 5m follow up HPI Details 79-year-old lady with hypertension, diab etes mellitus and dyslipidemia, here today for follow-up. Blood pressure controlled on valsartan hydrochlorothiazide 160-25 mg taken 1 daily and atenolol 50 mg 1 tablet twice a day. Recent fasting labs showed fasting lipids are within normal limits, renal function within normal limits as well and better control of diabetes now with hemoglobin A1c at 6.5% and no evidence of microalbuminuria present. She has been feeling well, with no complaints of chest pain, lightheadedness shortness for breath or weakness. [facility] Medical History (Updated 10/26/24 @ 13:01 by Dorene Martinez MD) Impacted cerumen of both ears History of invasive ductal carcinoma of breast Hematoma Invasive ductal carcinoma of left breast, stage 1 Type 2 diabetes mellitus without complication, without long-term current use of insulin Menopause Dyslipidemia Essential hypertension Surgical History H/O left breast biopsy History of colonoscopy History of tonsillectomy Family History Mother Breast cancer Generalized anxiety disorder Brother No problems noted. Son No problems noted. Daughter No problems noted. Paternal Grandmother Diabetes mellitus Father Diabetes mellitus Other Mental health disorder Social History Household Members: Friend(s) [facility] Are you a primary care transport nurse to a significant other at home: No Do you presently have visiting nurse or other home services: No Alcohol intake: never Patient Tobacco Use Status: Never used Tobacco e-Cigarette/Vaping Use: Never Used Second Hand Smoke Exposure: No (as a child ) service: No Current occupational status: retired Cognitive needs: No Hearing needs: No Vision needs: Yes Female Reproductive History Menstrual Age of Menarche: 12 Questionnaire PHQ-9 Over the last 2 weeks, how often have you been bothered by any of the following problems? Depression Screening Interpretation: Negative Depression Screening Done: Yes Source: Developed by Drs. Mahendra Astudillo, Leti Perez, Ernie Oliver and colleagues, with an educational penny from [employer]. Thrive Questionnaire Date Thrive assessed: 05/27/24 I am a: Patient What is your living situation today?: I have a steady place to live Within the past 12 months, did the food you bought not last and you didn't have the money to get more?: Never true Within the past 12 months, did you worry whether your food would run out before you got money to buy more?: Never true Do you have trouble paying for medicines?: No Do you have trouble getting transportation to medical appointments?: No Do you have trouble paying your heating and electricity bill?: No Do you have trouble taking care of your child, family member or friend?: No Do you have trouble with day-to-day activities such as bathing, preparing meals, shopping, managing finances, etc.?: No Are you currently unemployed and looking for a job?: No Are you interested in more education?: No Please select the resources that you would like help with: None Currently or been in a relationship where the following occur: No concerns reported THRIVE Score: 0 DRISS-7 AMB Questionnaire DRISS-7 Date DRISS - 7 assessed: 05/27/24 Source: Developed by Drs. Mahendra Astudillo, Leti Perez, Ernie Oliver and colleagues, with an educational penny from [employer]. Review of Systems Eyes Details: No diabetic retinopathy, seen by Dr. Caballero 09/26/2024 ENT Details: Complaining of decreased hearing in both ears Card Reports no additional complaints Resp Reports no additional complaints GI Reports no additional complaints Musc Reports no additional complaints Skin/Breast Details: Has a nonhealing scab on dorsal aspect of nose present for the last 3 months, has an appointment to see [facility] for further evaluation manage Neuro Reports no additional complaints Endo Reports no additional complaints Physical exam (Primary Care) Vital Signs: Last Vital Signs Temp 97.8 F 10/20/24 08:14 Pulse 61 10/20/24 08:14 Resp 15 10/20/24 08:14 BP 135/80 10/20/24 09:11 Pulse Ox 97 10/20/24 08:14 Oxygen Delivery Method Room Air 10/20/24 08:14 BMI result Body Mass Index 38.0 Tobacco/Smoking Status: Tobacco use Status Tobacco use date assessed 10/20/24 10/20/24 08:14 Patient Tobacco Use Status Never used Tobacco 10/20/24 08:14 e-Cigarette/Vaping Use Never Used 10/20/24 08:14 Depression Screening Interpretation: Negative Thrive Assessment: Date of Thrive Assessment Date Thrive assessed 05/27/24 10/20/24 08:14 Currently or been in a relationship where the following occur: No concerns reported Const General: cooperative, comfortable and no acute distress Orientation/consciousness: patient oriented x3 HENMT Ears: external ears normal and Abnormal EAC present cerumen impaction bilateral General nose exam: Normal external nose present Mouth: Normal oral and palatal mucosa present, oropharynx normal and moist mucous membranes Eyes General: appearance normal, both eyes and all related structures Conjunctivae: conjunctivae normal Pupils: Equal, round and reactive pupils present EOM: EOMs intact bilaterally Neck Neck: Yes full ROM, Yes no lymphadenopathy and Yes supple Chest Other: Mastectomy scar on left Resp Effort & Inspection: normal respiratory effort and able to speak in complete sentences Auscultation: clear to auscultation bilaterally Cardio Rate: regular rate Rhythm: regular rhythm Heart sounds: S1 normal heart sound present and S2 normal heart sound present Bruits: no carotid bruits GI Inspection: Yes normal to inspection Palpation (GI): Soft to palpation, nontender and no masses Auscultation: normal bowel sounds Back/Spine/Pelvis Back: No back tenderness Skin Other: Hyperpigmented, crusted lesion on nose Neuro General: patient oriented x3, gait normal, tone normal, moves all extremities, Normal light touch and pain sensation and no focal motor deficits Cranial nerves: Yes Equal, round and reactive pupils present Cognition (Neuro): normal cognition Gait exam (Neuro): Normal gait present Motor exam (neuro): 5/5 motor strength present throughout Extrem General: Yes full ROM, Yes no joint enlargement, Yes no pedal edema and Yes normal gait Psych Appearance: grossly normal Mental Status: mental status grossly normal Speech and movement: Normal speech and movement present Affect: normal affect Attitude: cooperative Thought process: Normal thought process present Results Reviewed Results Reviewed: Name: Vashti Cyr Age/Sex: 79/F : 1945 Unit#: [id number] Attend Dr: Raúl Hermosillo MD Re06/23/24 Status: REG RCR Location: [facility]C Disch: SPEC : [id number] TESSIE: 10/16/24 STATUS: COMP REQ : [id number] RECD: 10/16/[address]: Raúl Hermosillo MD COMP: 10/16/24 ENTERED: 10/16/[address]: Dorene Martinez MD ORDERED: CBC Auto Diff Test Result Flag Reference WBC 4.6 L 4.8-10.8 X10*3/uL RBC 4.01 L 4.20-5.50 X10*6/uL HGB 11.7 L 12.0-16.0 g/dl HCT 33.3 L 37.0-47.0 % MCV 83.0 80.0-98.0 fL MCH 29.2 27.0-33.0 pg MCHC 35.1 H 31.0-35.0 g/dl RDW 12.4 11.0-16.0 % PLT 216 160-400 X10*3/uL MPV 9.4 9.4-12.3 fL Neut Pct Auto 47.1 45-73 % ImGran Pct Auto 0.2 0.0-0.4 % Lymp Pct Auto 39.3 20-40 % Rains Pct Auto 10.8 2-11 % Eos Pct Auto 2.2 0-4 % Baso Pct Auto 0.4 0-2 % NRBC Pct Auto 0.0 0.0-0.2 /100WBC ANC Neut Abs # 2.2 2.0-8.3 x10*3/uL ImGran Abs Auto 0.01 0.00-0.03 X10*3/uL Lymph Abs Auto 1.8 1.2-4.9 X10*3/uL Rains Abs Auto 0.5 0.1-1.2 X10*3/uL Eos Abs Auto 0.1 0.0-0.4 X10*3/uL Baso Abs Auto 0.0 0.0-0.2 X10*3/uL NRBC Abs Auto 0.000 0.0-0.012 X10*3/uL Name: Vashti Cyr Age/Sex: 79/F : 1945 Unit#: [id number] Attend Dr: Raúl Hermosillo MD Re06/23/24 Status: REG R Location: .ONC Disch: SPEC : [id number] TESSIE: 10/16/24 STATUS: COMP REQ : [id number] RECD: 10/16/[address]: Raúl Hermosillo MD COMP: 10/16/24-1106 ENTERED: 10/16/24-1015 [facility] DR: Dorene Martinez MD ORDERED: CMP Test Result Flag Reference Sodium 131 L 135-145 mmol/L Potassium 4.3 3.3-5.1 mmol/L CL 97 96-108 mmol/L CO2 28 22-29 mmol/L Gap 10 L 12-20 BUN 19 H 9-16 mg/dL Creat 0.70 0.5-1.4 mg/dL Estimated CrCl 69.1 Provided height and weight: 154.94 cm, 91 kg. eGFR (calculated from the MDRD study equation) and eCrCl (calculated from the Cockcroft-Gault equation) are based on different parameters and may not yield comparable results. If eCrCl result is absurd, please check patient's height/weight. eGFR > 60 Chronic Kidney Disease: Estimated GFR < 60 mL/min/ 1.73m2 Severe Kidney Disease: Estimated GFR < 15 mL/min/1.73m2 Glucose, Random 122 H 60-115 mg/dL CA 9.7 8.4-10.2 mg/dL Total Bili 0.7 0.0-1.0 mg/dL AST (GOT) 24 5-31 U/L ALT (GPT) 14 0-31 U/L Protein, Total 7.9 6.5-8.0 g/dL Alb 4.5 3.5-5.0 g/dL Alk Phos 76 39-117 U/L Name: Vashti Cyr Age/Sex: 79/F : 1945 Unit#: [id number] Attend Dr: Dorene Martinez MD Re10/14/24 Status: DEP [facility] Disch: SPEC : [id number] TESSIE: 10/14/24 STATUS: COMP REQ : [id number] RECD: 10/14/[address] [facility] [address]: Dorene Martinez MD COMP: 10/14/24 ENTERED: 10/14/24 [facility] DR: ORDERED: Met Prof Fast, AST, ALT, Lipid Panel, Vitamin D 25-OH Test Result Flag Reference Sodium 132 L 135-145 mmol/L Potassium 4.2 3.3-5.1 mmol/L CL 96 96-108 mmol/L CO2 27 22-29 mmol/L Gap 13 12-20 BUN 23 H 9-16 mg/dL Creat 0.77 0.5-1.4 mg/dL eGFR > 60 Chronic Kidney Disease: Estimated GFR < 60 mL/min/1.73m2 Severe Kidney Disease: Estimated GFR < 15 mL/min/1.73m2 FBS 116 H 60-99 mg/dL A fasting glucose from 100-125 mg/dl is considered impaired (pre-diabetes). CA 9.5 8.4-10.2 mg/dL AST (GOT) 23 5-31 U/L ALT (GPT) 13 0-31 U/L Triglyceride 122 <150 mg/dL Desirable Triglyceride: less than 150 mg/dL Borderline High Triglyceride 150-199 mg/dL High Triglyceride: 200-499 mg/dL Very High Triglyceride: greater than or equal to 5OO mg/dL Cholesterol 125 <200 mg/dL Desirable Cholesterol: less than 200 mg/dL Borderline High Cholesterol: 200-239 mg/dL High Cholesterol: greater than 239 mg/dL LDL Calculated 62 <100 mg/dL Desirable LDL: less than 100 mg/dL Near Optimal/Above Optimal LDL: 110-129 mg/dL Borderline High LDL: 130-159 mg/dL High LDL: 160-189 mg/dL Very High LDL: greater than or equal to 190 mg/dL HDL 39 L >40 mg/dL Desirable HDL: greater than 40 mg/dL Note: This HDL assay may give artificially low results in patients with liver disease. Vitamin D 25-OH 38.3 >30 ng/mL Health Based Reference Values* < 20 ng/mL Deficient 20-30 ng/mL Insufficient > 30 ng/mL Sufficient Name: Vashti Cyr Age/Sex: 79/F : 1945 Unit#: [id number] Attend Dr: Dorene Martinez MD Re10/14/24 Status: DEP [facility] Disch: SPEC : [id number] TESSIE: 10/14/24 STATUS: COMP REQ : [id number] RECD: 10/14/[address]: Dorene Martinez MD COMP: 10/14/24 ENTERED: 10/14/24 [facility] DR: ORDERED: MICARU Test Result Flag Reference Creat, Ur 114.46 mg/dL Microalbumin Ur 21.0 mg/L Alb/Creat Ratio 18.3 <30 ug/mg cr Albumin/Creatinine Ratio Reference Ranges: Normal: < 30 ug/mg creatinine Microalbuminuria: 30 - 300 ug/mg creatinine Clinical Albuminuria: > 300 ug/mg creatinine Coding Level of Care Code Est Pt Level 4 (98385) Diagnoses Dyslipidemia E78.5 Type 2 diabetes mellitus without complication, without long-term current use of insulin E11.9 Essential hypertension I10 Impacted cerumen of both ears H61.23 Assessment & Plan Assessment & Plan (1) Dyslipidemia: Code(s): E78.5 - Hyperlipidemia, unspecified Category: Medical Plan: Continued on simvastatin 40 mg at bedtime in addition to adherence to healthy eating habits and regular exercise. (2) Type 2 diabetes mellitus without complication, without long-term current use of insulin: Code(s): E11.9 - Type 2 diabetes mellitus without complications Category: Medical Plan: Diabetes better controlled now with hemoglobin A1c at 6.5% continued on metformin ER 500 mg at night with supper. Up-to-date with her diabetes retinopathy screening. (3) Essential hypertension: Code(s): I10 - Essential (primary) hypertension Category: Medical Plan: Blood pressure at goal of less than 130/80. Continue with current medication. Reinforced importance of following a low sodium diet, getting regular exercise, and lowering stress levels. (4) Impacted cerumen of both ears: Code(s): H61.23 - Impacted cerumen, bilateral Category: Medical Plan: Schedule another appointment for cerumen removal Orders: Orders Hemoglobin A1c 02/14/25 E11.9 - Type 2 diabetes mellitus without complications, E78.5 - Hyperlipidemia, unspecified Lipid Panel 02/14/25 E11.9 - Type 2 diabetes mellitus without complications, E78.5 - Hyperlipidemia, unspecified Medications: Refilled metformin ER 500 mg PO QPM 90 tabs 2RF
[2024-10-20 08:14] VITALS: BP 144/70; PULSE 61; RESP 15; TEMP 36.6; O2SAT 97; BMI 38.0
[2024-10-20 09:11] VITALS: BP 135/80
== END 2024-10-20 09:19 | disposition home or self-care (01) ==
LOC: HO.HMCC 08:06
PROVIDERS: PCP Internal Medicine; Visit Provider Internal Medicine
DX: E78.5 Hyperlipidemia, unspecified (principal); E11.9 Type 2 diabetes mellitus without complications; I10 Essential (primary) hypertension; H61.23 Impacted cerumen, bilateral

== ENCOUNTER → 2024-10-20 08:05 | Outpatient (BNVA) | payer MEDICARE, SELFPAY | PROVIDERS: PCP Internal Medicine; Visit Provider Internal Medicine | DX: E78.5 Hyperlipidemia, unspecified (principal); E11.9 Type 2 diabetes mellitus without complications; I10 Essential (primary) hypertension; H61.23 Impacted cerumen, bilateral | CPT/HCPCS: 99212 ==

== ENCOUNTER 2024-10-22 08:20 | Outpatient (AMB) | payer MEDICARE, SELFPAY ==
--- NOTE | 2024-10-22 08:22 | AM.OFFWIN_ITS ---
Intake Vital Signs 10/22/24 08:24 Height 5 ft 1 in Weight 201 lb BMI 38.0 BP 132/60 Blood Pressure Location Rt brachial Position Sitting Pulse 65 Pulse Source Pulse Oximeter Temp 97.5 F Temp Source Oral Pulse Oximetry (%) 99 Oxygen Delivery Method Room Air Intake Visit Reasons: EP clean earwax Intake Note: presents for bilateral ear irrigation Patient Tobacco Use Status: Never used Tobacco Allergies lisinopril (LISINOPRIL) Adverse Reaction (Intermediate, Verified 10/22/24 08:31) TACHYCARDIA moxifloxacin (From VIGAMOX) Adverse Reaction (Intermediate, Verified 10/22/24 08:31) increased eye irritation BANDAIDS Allergy (Mild, Uncoded 10/20/24 09:01) RASH Do you need a note to return to daycare/school/sports/work: No HPI HPI Comments History of Present Illness Details History - The patient is a 79-year-old female pr esenting with ear discomfort and earwax buildup. - The patient reports ear discomfort and a pressure in both ears, particularly in the left ear, which occasionally causes pain. - The patient was advised by Dr. Martinez to clean the ears using a mixture of half water and half hydrogen peroxide. - The patient has not experienced dizzin ess or headaches associated with the ear discomfort. - She has no improvement with the soluti on. - She denies cold symptoms, runny nose, or congestion. Physical Exam General: Cooperative, healthy appearing, comfortable, no acute distress and well developed Head: Normal to inspection Ears: External ears normal bilaterally. No tragus or mastoid tenderness noted. Cerumen noted in the canal. TM's not visualized. Respiratory: Normal respiratory effort and able to speak in complete sentences. Clear to auscultation bilaterally. No w/r/r noted. Cardiac: RRR, no m/r/g noted. Normal S1 and S2 noted. Patient was informed and verbally consented to the use of an ambient scribe for clinic note documentation during this visit. [facility] Medical History Diabetes mellitus with hyperglycemia History of invasive ductal carcinoma of breast Hematoma Invasive ductal carcinoma of left breast, stage 1 Type 2 diabetes mellitus without complication, without long-term current use of insulin Menopause Dyslipidemia Essential hypertension Surgical History H/O left breast biopsy History of colonoscopy History of tonsillectomy Family History Mother Breast cancer Generalized anxiety disorder Brother No problems noted. Son No problems noted. Daughter No problems noted. Paternal Grandmother Diabetes mellitus Father Diabetes mellitus Other Mental health disorder Social History Household Members: Friend(s) Housing: Condominium Are you a primary career development consultant to a significant other at home: No Do you presently have visiting nurse or other home services: No Alcohol intake: never Patient Tobacco Use Status: Never used Tobacco e-Cigarette/Vaping Use: Never Used Second Hand Smoke Exposure: No (as a child ) service: No Current occupational status: retired Cognitive needs: No Hearing needs: No Vision needs: Yes Female Reproductive History Menstrual Age of Menarche: 12 Review of Systems Const All systems reviewed & are unremarkable except as noted in HPI and below Physical Exam Vital Signs: Last Vital Signs Temp 97.5 F 10/22/24 08:24 Pulse 65 10/22/24 08:24 BP 132/60 10/22/24 08:24 Pulse Ox 99 10/22/24 08:24 Oxygen Delivery Method Room Air 10/22/24 08:24 BMI result Body Mass Index 38.0 Office Procedures Cerumen Removal From which ear canal was the cerumen removed: bilateral Removal: irrigation Notes: patient tolerated procedure well, no complications and ear canal clear [id number] Irrigation/Lavage Assessment & Plan Assessment & Plan (1) Cerumen impaction: Code(s): H61.20 - Impacted cerumen, unspecified ear Qualifiers: Laterality: bilateral Qualified Code(s): H61.23 - Impacted cerumen, bilateral Plan Plan - Irrigation in the office today - Debrox drops OTC if needed - Avoid using q-tips in the ears - follow up with PCP Orders: Orders AMB Cerumen Removal Today H61.23 - Impacted cerumen, bilateral Coding Level of Care Code Est Pt Level 3 (87675) Diagnoses Bilateral impacted cerumen H61.23 Laterality: bilateral CPT Codes Office Procedure - CPT: 93212-Rky Irrigation/Lavage ([id number])
[2024-10-22 08:24] VITALS: BP 132/60; PULSE 65; TEMP 36.4; O2SAT 99; BMI 38.0
== END 2024-10-22 09:05 | disposition home or self-care (01) ==
PROVIDERS: PCP Internal Medicine; Visit Provider Physician Assistant Medical
DX: H61.23 Impacted cerumen, bilateral (principal)

== ENCOUNTER → 2024-10-22 08:20 | Outpatient (BNVA) | payer MEDICARE, SELFPAY | PROVIDERS: PCP Internal Medicine; Visit Provider Physician Assistant Medical | DX: H61.23 Impacted cerumen, bilateral (principal) | CPT/HCPCS: 69209; 99212 ==

== ENCOUNTER 2024-12-09 08:45 | Outpatient (REF) | payer MEDICARE, SELFPAY ==
--- OUTSIDE RECORDS SUMMARY | 2024-12-09 09:01 | XMS_ITS | Clinical Summary ---
Author Organization [facility] Address [address] [place] [id number] Phone Care Team Providers Care Steel Pourer Name Role Phone Dorene Martinez MD Primary Care Provider Social History Tobacco Use Types Packs/Day Years Used Date Smoking Tobacco: Never Assessed Education Answer Date Recorded Are you interested in more education? Not on augusta e 02/09/2023 Are you concerned about learning? Not on file 02/09/2023 No 02/09/2023 No 02/09/2023 Digital Access Answer Date Recorded No 02/09/2023 No 02/09/2023 Reliable internet access at home? Not on file 02/09/2023 Device with a working camera? Not on file Comments Unknown Sex and Gender Information Value Date Recorded Sex Assigned at Not on file Legal Sex Female 3:04 PM EDT Gender Identity Not on file Sexual Orientation Not on file Plan of Treatment Health Maintenance Due Date Last Done Comments Adult Td,Tdap Booster 1945 LIPID PANEL 1945 DEPRESSION SCREENING 1959 SMOKING Hx and SMOKELESS TOB ACCO SCREENING 01/14/1960 HEPATITIS C SCREENING 1965 PNEUMOCOCCAL VACCINES (50+ y ears) (1 of 1 - PCV) 1997 ZOSTER VACCINES (1 of 2) 1997 OSTEOPOROSIS SCREENING INITI AL (ONE-TIME) 01/14/2012 RSV VACCINE (1 - 1-dose 75+ series) 2022 COVID-19 VACCINE ( - 2023-2 5 season) 2023 HEPATITIS A VACCINES Aged Out No long er eligible based on patient's age to complete this topic HIB VACCINES Aged Out No longer eligi ble based on patient's age to complete this topic MENINGOCOCCAL VACCINES (ACWY) Aged Out No longer eligible based on patient's age to complete this topic MENINGOCOCCAL VACCINES (B) Aged Out N o longer eligible based on patient's age to complete this topic Medical Devices Not on file Insurance MEDICARE PART A & B MEDEX SUPPLEMENT MEDICARE PART A & B Member Subscriber Plan / Payer (Ef fective 2013-Present) Name:Klarissa, Vashti Member ID:[id number] Relation to Subscriber:Self Name:Vashti Cyr Subscriber ID:[id number] Payer ID:[id number] Group ID:Not on file Type:Medicare Address: [employer] [address] [place] [id number] [employer] MEDEX SUPPLEMENT MEDICARE PART A & B [employer] MEDEX SUPPLEMENT MEDICARE PART A & B [employer] MEDEX SUPPLEMENT MEDICARE PART A & B [employer] MEDEX SUPPLEMENT MEDICARE PART A & B [employer] MEDEX SUPPLEMENT Care Teams Steel Pourer Relationship Specialty Start Date End Date Dorene Martinez MD [address] [place] [id number] PCP - General Internal Medicine 02/09/23 Additional Source Comments The information contained in this document represents components of the legal health record. It is not the complete legal health record.[facility]
== END 2024-12-09 08:46 | disposition home or self-care (01) ==
LOC: HO.MAMMO 08:45
PROVIDERS: PCP Internal Medicine; Visit Provider Internal Medicine
DX: Z12.31 Encounter for screening mammogram for malignant neoplasm of breast (principal); Z90.12 Acquired absence of left breast and nipple
CPT/HCPCS: 77063; 77067

== ENCOUNTER → 2024-12-09 09:00 | Outpatient (BNV) | payer MEDICARE, SELFPAY | PROVIDERS: PCP Internal Medicine; Visit Provider Radiology Body Imaging | DX: Z12.31 Encounter for screening mammogram for malignant neoplasm of breast (principal) | CPT/HCPCS: 77063; 77067 ==

== ENCOUNTER 2024-12-31 09:00 | Outpatient (AMB) | payer MEDICARE, SELFPAY ==
--- NOTE | 2024-12-31 09:01 | A.OFFVIS_ITS ---
Intake Visit Reasons: 6 month mammo follow up visit Intake Note: Patient here for 6mo breast exam. Hx of CAIS, left breast simple mastectomy. [facility] w/Dr. Hermosillo 10-16-2024 Patient c/o: was advised to follow up about breasts densities noted on mammogram. Imaging: right breast MM~ 12-09-2024 Coating Machine Operator Required: No Accompanied by: Self / Same As Patient Allergies lisinopril (LISINOPRIL) Adverse Reaction (Intermediate, Verified 10/22/24 08:31) TACHYCARDIA moxifloxacin (From VIGAMOX) Adverse Reaction (Intermediate, Verified 10/22/24 08:31) increased eye irritation BANDAIDS Allergy (Mild, Uncoded 10/20/24 09:01) RASH Medication List - Last Reconciled 12/31/24 by Abner Lee MD atenolol 50 mg PO BID blood sugar diagnostic Check fasting blood sugar once daily blood-glucose meter As directed calcium carbonate 390 mg PO DAILY cholecalciferol (vitamin D3) 25 mcg PO DAILY lancets (Easy Touch Safety Lancets) Check blood sugar once daily lancets (FreeStyle Lancets) daily letrozole 2.5 mg PO Q24H metformin ER 500 mg PO QPM omega-3 fatty acids (Fish Oil Concentrate) 1,000 mg PO BID simvastatin 40 mg PO BEDTIME valsartan-hydrochlorothiazide 160-25 mg 1 tab PO DAILY HPI HPI 6 month mammo follow up visit: Details: She is here for follow-up after mastectomy of the left breast last January, for a T1 N0 invasive ductal carcinoma. She continues do well. She denies significant complaints. She is on Arimidex. She follows Dr. Hermosillo for this. She denies significant complaints. She feels well overall. She denies any changes in her health. She had a mammogram for the right breast done last month and this has not suggest any new masses or abnormality. She denies any masses on the left mastectomy site. [facility] Medical History Impacted cerumen of both ears History of invasive ductal carcinoma of breast Hematoma Invasive ductal carcinoma of left breast, stage 1 Type 2 diabetes mellitus without complication, without long-term current use of insulin Menopause Dyslipidemia Essential hypertension Surgical History H/O left breast biopsy History of colonoscopy History of tonsillectomy Family History Mother Breast cancer Generalized anxiety disorder Brother No problems noted. Son No problems noted. Daughter No problems noted. Paternal Grandmother Diabetes mellitus Father Diabetes mellitus Other Mental health disorder Social History Household Members: Friend(s) Housing: Condominium Are you a primary animal care attendant to a significant other at home: No Do you presently have visiting nurse or other home services: No Alcohol intake: never Patient Tobacco Use Status: Never used Tobacco e-Cigarette/Vaping Use: Never Used Second Hand Smoke Exposure: No (as a child ) service: No Current occupational status: retired Cognitive needs: No Hearing needs: No Vision needs: Yes Female Reproductive History Menstrual Age of Menarche: 12 Review of Systems Const Denies chills and Denies fever(s) Card Denies chest pain, Denies dyspnea and Denies dyspnea on exertion Resp Denies cough, Denies dyspnea and Denies dyspnea on exertion GI Denies hematochezia and Denies change in bowel habits Denies hematuria Musc Denies back pain and Denies limited range of motion Neuro Denies focal weakness and Denies convulsions Psych Denies depression and Denies mood swings Physical Exam Const General: comfortable and no acute distress Orientation/consciousness: patient oriented x3 Neck Neck: Yes no lymphadenopathy Chest Other: Left mastectomy site without any palpable masses on the chest wall or the axilla Right breast large and pendulous without any palpable mass no axillary lymphadenopathy on the right Resp Effort & Inspection: normal respiratory effort Auscultation: clear to auscultation bilaterally Cardio Rhythm: regular rhythm GI Palpation (GI): Soft to palpation, nontender and no guarding Neuro General: patient oriented x3 Assessment & Plan Assessment & Plan (1) History of invasive ductal carcinoma of breast: Code(s): Z85.3 - Personal history of malignant neoplasm of breast Category: Medical Plan: She continues to do very well after mastectomy in 2022 Current exam does not suggest any palpable masses I have reviewed her mammogram from last month and this was unremarkable I will see her again in the office in about 6 months. Coding Level of Care Code Est Pt Level 3 (22269) Complex EM visit Add On G2211 Diagnoses History of invasive ductal carcinoma of breast Z85.3
--- OUTSIDE RECORDS SUMMARY | 2024-12-31 10:31 | XMS_ITS | Clinical Summary ---
Author Organization [facility] Address [address] [place] [id number] Phone Care Team Providers Care Serging Machine Operator Automatic Name Role Phone Dorene Martinez MD Primary [...] VACCINE (1 - 1-dose 75+ series) 2022 INFLUENZA VACCINE (#1) 2024 COVID-19 VACCINE ( - 2023-2 5 season) 2024 HEPATITIS A VACCINES Aged Out No long [...] file Insurance MEDICARE PART A & B [facility] MEDEX SUPPLEMENT MEDICARE PART A & B [employer] MEDEX SUPPLEMENT MEDICARE PART A & B [employer] MEDEX SUPPLEMENT MEDICARE PART A & B Member Subscriber Plan / Payer ( fective 2013-Present) Name:Klarissa, Vashti Member ID:[id number] Relation to Subscriber:Self Name:Vashti Cyr Subscriber ID:[id number] Payer ID:[id number] Group ID:Not on file Type:Medicare Address: [employer] [address] [place] [phone] [employer] MEDEX SUPPLEMENT MEDICARE PART A & B [employer] MEDEX SUPPLEMENT MEDICARE PART A & B [employer] MEDEX SUPPLEMENT Care Teams Serging Machine Operator Automatic Relationship Specialty Start Date End Date Dorene Martinez MD [address] [place] [address] PCP - General Internal Medicine 02/09/23 Additional Source Comments The information contained in this document represents components of the legal health record. It is not the complete legal health record.[facility]
== END 2024-12-31 09:32 | disposition home or self-care (01) ==
LOC: HO.HGS 09:00
PROVIDERS: PCP Internal Medicine; Visit Provider Surgery
DX: Z85.3 Personal history of malignant neoplasm of breast (principal)
CPT/HCPCS: 99213; G2211

== ENCOUNTER → 2024-12-31 09:00 | Outpatient (BNVA) | payer MEDICARE, SELFPAY | PROVIDERS: PCP Internal Medicine; Visit Provider Surgery | DX: Z85.3 Personal history of malignant neoplasm of breast (principal) | CPT/HCPCS: 99212 ==

== ENCOUNTER 2025-01-13 09:01 | Outpatient (REF) | payer MEDICARE, SELFPAY ==
--- NOTE | ~2025-01-13 | MM_ITS ---
EXAMINATION: DXA BONE DENSITY AXIAL HISTORY: Breast cancer, on letrozole, TECHNIQUE: icomasoft Dual energy absorptiometry (DEXA) of the lumbar spine, total left hip, and femoral neck was performed. COMPARISON: Comparison is made with the prior examination dated 01/04/2023. FINDINGS: The bone mineral density of the lumbar spine is 1.244 g/cm2, corresponding to a T-score of 0.6, and a Z-score of 1.5. This is indicative of normal bone mineral density. This represents a BMD change of -6.0% compared to the prior exam. This is statistically significant. The bone mineral density of the left total hip is 1.048 g/cm2, corresponding to a T-score of 0.3, and a Z-score of 1.5. This is indicative of normal bone mineral density. This represents a BMD change of -8.4% compared to the prior exam. This is statistically significant. The bone mineral density of the left femoral neck is 0.998 g/cm2, corresponding to a T-score of -0.3, and a Z-score of 1.2. This is indicative of normal bone mineral density. This represents a BMD change of -2.8% compared to the prior exam. MM/XR DEXA axial skeleton IMPRESSION: Based on bone mineral density, and according to World Health Organization (WHO) criteria, the diagnosis is consistent with normal bone mineral density. Statistically, 68% of repeat scans fall within 1 SD (+/- 0.010 g/cm2 for AP spine L1-L4) and 1 SD (+/- 0.012 g/cm2 for femur total) FRAX is a trademark of the [employer]'s [place] for Metabolic Bone Disease, a World Health Organization (WHO) Collaborating Center. Electronically signed by: Mahendra Workman MD 01/13/2025 09:31 AM EDT
--- OUTSIDE RECORDS SUMMARY | 2025-01-13 09:39 | XMS_ITS | Clinical Summary ---
Author Organization [facility] Address [address] [place] [phone] Phone Care Team Providers Care Merchandiser Name Role Phone Dorene Martinez MD Primary [...] file Insurance MEDICARE PART A & B [facility] MEDEX SUPPLEMENT MEDICARE PART A & B [employer] MEDEX SUPPLEMENT MEDICARE PART A & B [employer] MEDEX SUPPLEMENT MEDICARE PART A & B Member Subscriber Plan / Payer ( fective 2013-Present) Name:Klarissa, Vashti Member ID:[id number] Relation to Subscriber:Self Name:Vashti Cyr Subscriber ID:[id number] Payer ID:[id number] Group ID:Not on file Type:Medicare Address: [employer] [address] [place] [phone] [employer] MEDEX SUPPLEMENT MEDICARE PART A & B [employer] MEDEX SUPPLEMENT MEDICARE PART A & B [employer] MEDEX SUPPLEMENT Care Teams Merchandiser Relationship Specialty Start Date End Date Dorene Martinez MD [address] [place] [address] PCP - General Internal Medicine 02/09/23 Additional Source Comments The information contained in this document represents components of the legal health record. It is not the complete legal health record.[facility]
== END 2025-01-13 09:02 | disposition home or self-care (01) ==
LOC: HO.MAMMO 09:01
PROVIDERS: PCP Internal Medicine; Visit Provider Internal Medicine Medical Oncology
DX: Z13.820 Encounter for screening for osteoporosis (principal); Z78.0 Asymptomatic menopausal state; C50.912 Malignant neoplasm of unspecified site of left female breast
CPT/HCPCS: 77080

== ENCOUNTER → 2025-01-13 09:15 | Outpatient (BNV) | payer MEDICARE, SELFPAY | PROVIDERS: PCP Internal Medicine; Visit Provider Radiology Diagnostic Radiology | DX: E28.39 Other primary ovarian failure (principal) | CPT/HCPCS: 77080 ==

== ENCOUNTER 2025-02-12 08:32 | Outpatient (REF) | payer MEDICARE, SELFPAY ==
--- OUTSIDE RECORDS SUMMARY | 2025-02-12 09:25 | XMS_ITS | Clinical Summary ---
Author Organization [facility] Address [address] [place] [phone] Phone Care Team Providers Care Car Seat Maker Name Role Phone Dorene Martinez MD Primary [...] VACCINE (#1) 2024 COVID-19 VACCINE ( - 2024-2 6 season) 2024 HEPATITIS A VACCINES Aged Out [...] file Insurance MEDICARE PART A & B [facility] MEDEX SUPPLEMENT MEDICARE PART A & B [employer] MEDEX SUPPLEMENT MEDICARE PART A & B [employer] MEDEX SUPPLEMENT MEDICARE PART A & B Member Subscriber Plan / Payer ( fective 2013-Present) Name:Klarissa, Vashti Member ID:[id number] Relation to Subscriber:Self Name:Vashti Cyr Subscriber ID:[id number] Payer ID:[id number] Group ID:Not on file Type:Medicare Address: [employer] [address] [place] [phone] [employer] MEDEX SUPPLEMENT MEDICARE PART A & B [employer] MEDEX SUPPLEMENT MEDICARE PART A & B [employer] MEDEX SUPPLEMENT Care Teams Car Seat Maker Relationship Specialty Start Date End Date Dorene Martinez MD [address] [place] [address] PCP - General Internal Medicine 02/09/23 Additional Source Comments The information contained in this document represents components of the legal health record. It is not the complete legal health record.[facility]
[2025-02-12 11:41] LABS: Cholesterol 131 mg/dL (<200); HDL Cholesterol 44 mg/dL (>40); Triglycerides 110 mg/dL (<150)
== END 2025-02-12 08:33 | disposition home or self-care (01) ==
LOC: HO.HMGCLDS 08:32
PROVIDERS: PCP Internal Medicine; Visit Provider Internal Medicine
DX: E11.9 Type 2 diabetes mellitus without complications (principal); E78.5 Hyperlipidemia, unspecified
CPT/HCPCS: 36415; 80061; 83036

== ENCOUNTER 2025-02-18 09:17 | Outpatient (AMB) | payer MEDICARE, SELFPAY ==
--- NOTE | 2025-02-18 09:22 | AM.OFFVISMDC ---
Intake Vital Signs 02/18/25 09:25 Height 5 ft 1 in Weight 199 lb BMI 37.6 BP 136/80 Blood Pressure Location Rt brachial Position Sitting Respiration 16 Pulse 65 Pulse Source Pulse Oximeter Temp 97.7 F Temp Source Oral Pulse Oximetry (%) 98 Oxygen Delivery Method Room Air Intake Visit Reasons: SWV G0439 Intake Note: Pt is here today for her SWV: last mammogram 12/09/24, bone density scan 01/13/25, colonoscopy 03/15/17 Allergies lisinopril (LISINOPRIL) Adverse Reaction (Intermediate, Verified 02/18/25 09:27) TACHYCARDIA moxifloxacin (From VIGAMOX) Adverse Reaction (Intermediate, Verified 02/18/25 09:27) increased eye irritation BANDAIDS Allergy (Mild, Uncoded 02/18/25 09:27) RASH HPI SWV G0439 HPI Details SWV ? 80 year old lady with past medical history significant for diabetes mellitus type 2, dyslipidemia, hypertension, recently diagnosed with basal cell CA on dorsal aspect of nose, scheduled for Mohs surgery with [facility] later this month, and history of invasive ductal carcinoma of left breast s/p simple mastectomy January 2023 currently on letrozole, presents for her ? subsequent annual wellness visit. She is up-to-date with his screening mammogram, done 12/09/2024 with normal findings. Currently being followed by Dr. Lee and Dr. Hermosillo. Last bone density scan was done 01/13/2025 which showed normal bone density in lumbar spine left femoral neck and left femur. No history of fractures She had a normal fasting lipid panel done 01/16/2025, and fasting blood sugar and hemoglobin A1c were normal checked 01/16/2025 with hemoglobin A1c at 6.3%. No longer gets cervical cancer screenings, last colonoscopy screening was done in [address] Benton which came back with negative findings, repeat due again in 2026. She is up-to-date with all her vaccinations. ? Medical / Social History Reviewed? Past Medical History ?Yes . ? Kiana of Care / Care Team list updated ?Yes . ? Surgical/Hospitalization History ?Yes . ? Current Medications (including OTC and supplements) ?Yes . ? Family History ?Yes . ? Tobacco Control form ?Yes . ? AUDIT-C (Alcohol use) form ?Yes . ? Illicit drug use in Social History ?Yes . ? Current diagnosis of depression? ?No ? Appropriate PHQ2/PHQ9 completed ?Yes . ? 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 Fall Risk ? Fall History? Have you had any falls with injury in the past year? ?No . ? Have you had two or more falls in the past year? ?No . ? Fall Risk Assessment: ?No falls in the past year . ? HRA filled out by the patient, reviewed by Provider and scanned. ?SWV ? Balance? Romberg ?negative ? Tandem walk- able to do. ? Walk and Turn ?Yes . ? Rise from sit to stand ?Yes . ?Vision? Corrective lens ?Yes ? Vision screen- sees Dr Caballero ?Hearing? Whisper test ?pass . ?Written Plan?Completed. See Patient Documents.? HPI Comments History of Present Illness Details 80-year-old lady here today for follow-up on her diabetes mellitus, hypertension and dyslipidemia. Currently taking metformin ER 500 mg 1 tablet daily at night with supper time and simvastatin and [place] 3 fatty acid supplements noncompliant with diet, has avoided eating a lot of carbs and starches stopped eating her potato chips, has not been able to exercise much due to recent diagnosis of basal cell CA on dorsal aspect of nose. Scheduled for Mohs surgery later this month at [facility]. She sees Dr. Caballero yearly for her routine eye exam and diabetes retinopathy screening , and is up-to-date with all recommended vaccines [facility] Medical History Basal cell carcinoma of nose History of invasive ductal carcinoma of breast Hematoma Invasive ductal carcinoma of left breast, stage 1 Type 2 diabetes mellitus without complication, without long-term current use of insulin Menopause Dyslipidemia Essential hypertension Surgical History H/O left breast biopsy History of colonoscopy History of tonsillectomy Family History Mother Breast cancer Generalized anxiety disorder Brother No problems noted. Son No problems noted. Daughter No problems noted. Paternal Grandmother Diabetes mellitus Father Diabetes mellitus Other Mental health disorder Social History Household Members: Friend(s) Housing: Condominium Are you a primary long term acute care registered nurse to a significant other at home: No Do you presently have visiting nurse or other home services: No Alcohol intake: never Patient Tobacco Use Status: Never used Tobacco e-Cigarette/Vaping Use: Never Used Second Hand Smoke Exposure: No (as a child ) service: No Current occupational status: retired Cognitive needs: No Hearing needs: No Vision needs: Yes Female Reproductive History Menstrual Age of Menarche: 12 Questionnaire Medicare Wellness Checkup What [age] What gender do you identify with?: female During the past 4 weeks, how much have you been bothered by emotional problems such as feeling anxious, depressed, irritable, sad or downhearted, and blue?: not at all During the past 4 weeks, has your physical & emotional health limited your social activities with family, friends, neighbors, or groups?: not at all During the past 4 weeks, how much bodily pain have you generally had?: very mild pain During the past 4 weeks, was someone available to help you if you needed & wanted help?: yes, as much as I wanted During the past 4 weeks, what was the hardest physical activity you could do for at least 2 minutes?: moderate Can you get to places out of walking distance without help? (For eg., can you travel alone on buses, taxis or drive your car?): Yes Can you go shopping for groceries or clothes without someone's help?: Yes Can you prepare your own meals?: Yes Can you do your housework without help?: Yes Because of any health problems, do you need the help of another person with your personal care needs such as eating, bathing, dressing or getting around the house?: No Can you handle your own money without help?: Yes During the past 4 weeks, how would you rate your health in general?: excellent During the past 4 weeks how have things been going for you?: very well; could hardly better Are you having difficulties driving your car?: no Do you always fasten your seat belt when you are in a car?: yes, usually During past 4 weeks, have you been bothered by the following: never: Falling or dizzy when standing up, Sexual problems?, Trouble eating well?, Teeth or denture problems?, Problems using the telephone? and Tiredness or fatigue? Have you fallen 2 or more times in the past year?: No Are you afraid of falling?: No Are you a smoker?: no During the past 4 weeks, how many drinks of wine, beer, or other alcoholic beverages did you have?: no alcohol at all Do you exercise for about 20 minutes 3 or more times a week?: yes, most of the time Have you been given information to help with the following?: no: Hazards in your house that might hurt you? and no: Keeping track of your medications? How often do you have trouble taking medicines the way you have been told to take them?: I always take medicine as prescribed How confident are you that you can control & manage most of your health problems?: very confident What is your race?: White Mini Mental State Exam (MMSE) Orientation What is the (year) (season) (date) (day) (month)?: year (2024), season (Fall), date (02/18/25), day (Sunday) and month (Nov) Where are we (state) (county) (town or city) (hospital) (floor)?: state ([facility]), county ([place]), town or city ([place]) and hospital/clinic ([facility]) Score Score: 9 Activity of Daily Living Bathing - sponge bath, tub bath or shower: receives no assistance (gets in/out by self, if usual bathing means Dressing - getting clothes from closets & drawers, including inner/outer garments & fasteners.: gets clothes & gets completely dressed without help Toileting - going to the 'toilet room' for urine/bowel elimination & cleaning self/arranging clothes: goes to toilet room, cleans self, arranges clothes without help Transfer: moves in & out of bed and chair without help (may use support object) Continence: has occasional 'accidents' Feeding: feeds self without help Total Score: 0 Information obtained from: patient Using telephone: independent Traveling: needs assistance Shopping: needs assistance Preparing meals: independent Housework: independent Taking medicine: independent Managing money: independent PHQ-9 Over the last 2 weeks, how often have you been bothered by any of the following problems? 1. Little interest or pleasure in doing things: not at all 2. Feeling down, depressed, or hopeless: not at all 3. Trouble falling or staying asleep, or sleeping too much: not at all 4. Feeling tired or having little energy: not at all 5. Poor appetite or overeating: not at all 6. Feeling bad about yourself - or that you are a failure or have let yourself or your family down: not at all 7. Trouble concentrating on things, such as reading the newspaper or watching television: not at all 8. Moving or speaking so slowly that other people could have noticed. Or the opposite - being so fidgety or restless that you have been moving around a lot more than usual: not at all 9. Thoughts that you would be better off or of hurting yourself in some way: not at all Total score: 0 Depression Screening Interpretation: Negative Depression Screening Done: Yes 18875 - PHQ-9 Billing: Yes Source: Developed by Drs. Mahendra Astudillo, Leti Perez, Ernie Oliver and colleagues, with an educational penny from [employer]. Review of Systems Const Denies chills, Denies fever(s), Denies frequent falls, Denies headache(s) and Denies weakness Eyes Details: Sees Dr. Caballero Reports no additional complaints, Denies change in vision and Reports requires corrective lenses ENT Reports no additional complaints, Reports Normal hearing present, Denies headache(s) and Denies disequilibrium Card Denies chest pain, Denies syncope, Denies dyspnea and Denies dyspnea on exertion Resp Denies cough, Denies dyspnea and Denies dyspnea on exertion GI Denies hematochezia and Denies change in bowel habits Reports no additional complaints Musc Denies abnormal gait, Denies back pain and Denies limited range of motion Skin/Breast Denies breast swelling, Denies breast skin changes, Denies breast mass and Denies rash Neuro Reports Normal hearing present, Reports Abnormal speech present, Denies abnormal gait, Denies syncope, Denies frequent falls, Denies headache(s), Denies focal weakness, Denies memory loss, Denies Sensory deficit (Neuro), Denies disequilibrium and Denies weakness Psych Denies depression, Denies memory loss and Denies mood swings Endo Reports no additional complaints Vitaliy/Lymph Reports no additional complaints Aller/Immun Reports no additional complaints Physical Exam Vital Signs: Last Vital Signs Temp 97.7 F 02/18/25 09:25 Pulse 65 02/18/25 09:25 Resp 16 02/18/25 09:25 BP 136/80 02/18/25 09:25 Pulse Ox 98 02/18/25 09:25 Oxygen Delivery Method Room Air 02/18/25 09:25 BMI result Body Mass Index 37.6 Const General: comfortable and no acute distress Nutritional Appearance: obese Orientation/consciousness: patient oriented x3 HEENT Face and sinus: Yes face symmetric Mouth: Normal oral and palatal mucosa present and moist mucous membranes Eyes General: appearance normal, both eyes and all related structures Neck Neck: Yes no lymphadenopathy Chest Other: Left mastectomy site without any palpable masses on the chest wall or the axilla Right breast large and pendulous without any palpable mass no axillary lymphadenopathy on the right Resp Effort & Inspection: normal respiratory effort Auscultation: clear to auscultation bilaterally Cardio Rate: regular rate Rhythm: regular rhythm Heart sounds: S1 normal heart sound present and S2 normal heart sound present GI Palpation (GI): Soft to palpation, nontender and no guarding Auscultation: normal bowel sounds General: Yes no CVA tenderness Back/Spine/Pelvis Back: no CVA tenderness and No back tenderness Neuro General: patient oriented x3 Cranial nerves: Yes Normal hearing present Cognition (Neuro): normal cognition Speech: Abnormal speech present Gait exam (Neuro): Normal gait present Motor exam (neuro): 5/5 motor strength present throughout Sensory Exam: No Sensory deficit (Neuro) Extrem General: Yes full ROM, Yes no joint enlargement, Yes no clubbing, cyanosis or edema and Yes normal gait Psych Appearance: grossly normal and well kempt Mental Status: mental status grossly normal Speech and movement: Normal speech and movement present Affect: normal affect Results Reviewed Results Reviewed: Name: Vashti Cyr Age/Sex: 80/F : 1945 Unit#: [id number] Attend Dr: Dorene Martinez MD Re02/12/25 Status: DEP REF Location: [facility] Disch: SPEC : [id number] TESSIE: 02/12/25 STATUS: COMP REQ : [id number] RECD: 02/12/[address]: Dorene Martinez MD COMP: 02/12/25 ENTERED: 02/12/[address]: ORDERED: Hgb A1c Test Result Flag Reference A1c % 6.3 H <6.0 % Hemoglobin A1C Reference Range Adults: 4.8 - 6.0 % Non diabetic: < 6.0 % Goal: < 7.0 % Additional Action Suggested: > 8.0 % Note: Hemoglobin A1c results are invalid for patients with abnormal amounts of HbF. Blood transfusions may impact the HbA1c concentration in the patient sample. Est. Avg. Gluc 134 mg/dL eAG = Estimated average glucose which is %A1C expressed as average glucose, using the formula of the K2K-Tlsexps Average Glucose study (ADAG), Diabetes Care, Vol.31,#8, 2007 Name: Vashti Cyr Age/Sex: 80/F : 1945 Unit#: [id number] Attend Dr: Dorene Martinez MD Re02/12/25 Status: DEP [facility] Disch: SPEC : [id number] TESSIE: 02/12/25 STATUS: COMP REQ : [id number] RECD: 02/12/[address]: Dorene Martinez MD COMP: 02/12/25 ENTERED: 02/12/[address] [facility] [address]: ORDERED: Lipid Panel Test Result Flag Reference Triglyceride 110 <150 mg/dL Desirable Triglyceride: less than 150 mg/dL Borderline High Triglyceride 150-199 mg/dL High Triglyceride: 200-499 mg/dL Very High Triglyceride: greater than or equal to 5OO mg/dL Cholesterol 131 <200 mg/dL Desirable Cholesterol: less than 200 mg/dL Borderline High Cholesterol: 200-239 mg/dL High Cholesterol: greater than 239 mg/dL LDL Calculated 65 <100 mg/dL Desirable LDL: less than 100 mg/dL Near Optimal/Above Optimal LDL: 110-129 mg/dL Borderline High LDL: 130-159 mg/dL High LDL: 160-189 mg/dL Very High LDL: greater than or equal to 190 mg/dL HDL 44 >40 mg/dL Desirable HDL: greater than 40 mg/dL Note: This HDL assay may give artificially low results in patients with liver disease. Laboratory Tests 10/14/24 10/14/24 08:11 08:20 Estimat Average Glucose 140 Hemoglobin A1c % 6.5 H Urine Creatinine 114.46 Urine Microalbumin 21.0 Microalb/Creat Ratio 18.3 Assessment & Plan Assessment & Plan (1) Encounter for subsequent annual wellness visit (AWV) in Medicare patient: Code(s): Z00.00 - Encounter for general adult medical examination without abnormal findings Plan: Medical wellness checklist reviewed, discussed with patient and updated. Patient up-to-date with all her routine screenings and vaccinations up-to-date with her advanced directives (2) History of invasive ductal carcinoma of breast: Code(s): Z85.3 - Personal history of malignant neoplasm of breast Plan: Currently followed by Dr. Hermosillo and Dr. Lee, currently clear still on letrozole 2.5 mg daily (3) Type 2 diabetes mellitus without complication, without long-term current use of insulin: Code(s): E11.9 - Type 2 diabetes mellitus without complications Plan: Diabetes mellitus well controlled with latest hemoglobin A1c at 6.5%, currently on metformin 500 mg [address] Caballero for her routine eye exam and diabetes retinopathy screening. (4) Dyslipidemia: Code(s): E78.5 - Hyperlipidemia, unspecified Plan: Fasting lipids are within normal limits, currently on simvastatin 40 mg at bedtime (5) Essential hypertension: Code(s): I10 - Essential (primary) hypertension Plan: Continue with atenolol 50 mg 1 tablet twice a day and losartan-HCTZ 160-25 mg daily. Reinforced importance of following a low sodium diet, getting regular exercise, and lowering stress levels. (6) Basal cell carcinoma of nose: Code(s): C44.311 - Basal cell carcinoma of skin of nose Plan: Followed at [facility], scheduled for Mohs surgery later this month. Quality Reporting (2019) Depression/Bipolar (159/160/161/177) PHQ-9: Total score: 0 Coding Level of Care Code Medicare Subsequent (G0439) Est Pt Level 4 (71547) Diagnoses Encounter for subsequent annual wellness visit (AWV) in Medicare patient Z00.00 History of invasive ductal carcinoma of breast Z85.3 Type 2 diabetes mellitus without complication, without long-term current use of insulin E11.9 Dyslipidemia E78.5 Essential hypertension I10 Basal cell carcinoma of nose C44.311 CPT Codes Advance Care Planning - Advance Care Planning discussion: On file, no changes ([id number]) Advance Care Planning - Time spent: 1-15 minutes, on File ([id number]) Additional Codes PHQ-9 - 27880 - PHQ-9 Billing: Yes ([id number]) Advance Care Planning Advance Care Planning discussion: On file, no changes Date of discussion: 02/18/25 Who was present: Patient Forms completed: Health Care Proxy (04/03/2023) and MOLST (08/13/2021) Time spent: 1-15 minutes, on File Actual minutes spent: 2
[2025-02-18 09:25] VITALS: BP 136/80; PULSE 65; RESP 16; TEMP 36.5; O2SAT 98; BMI 37.6
--- OUTSIDE RECORDS SUMMARY | 2025-02-18 10:09 | XMS_ITS | Clinical Summary ---
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 [place] [phone] jigl MEDEX SUPPLEMENT MEDICARE PART A & B jigl MEDEX SUPPLEMENT MEDICARE PART A & B [employer] MEDEX SUPPLEMENT Care Teams Acetylene Plant Operator Relationship Specialty Start Date End Date Dorene Martinez MD [address] [place] [address] PCP - General Internal Medicine 02/09/23 Additional Source Comments The information contained in this document represents components of the legal health record. It is not the complete legal health record.[facility]
== END 2025-02-18 10:08 | disposition home or self-care (01) ==
LOC: HO.HMCC 09:18
PROVIDERS: PCP Internal Medicine; Visit Provider Internal Medicine
DX: Z00.00 Encounter for general adult medical examination without abnormal findings (principal); E11.9 Type 2 diabetes mellitus without complications; Z85.3 Personal history of malignant neoplasm of breast; E78.5 Hyperlipidemia, unspecified; I10 Essential (primary) hypertension; C44.311 Basal cell carcinoma of skin of nose

== ENCOUNTER → 2025-02-18 09:17 | Outpatient (BNVA) | payer MEDICARE, SELFPAY | PROVIDERS: PCP Internal Medicine; Visit Provider Internal Medicine | DX: Z13.31 Encounter for screening for depression (principal) | CPT/HCPCS: 96127 ==